=== PATIENT | male | born 1960 | race African-American/Black ===

== ENCOUNTER 2016-08-02 09:37 | Inpatient (IN) | payer OTHER ==
[2016-08-02 11:03] VITALS: BMI 18.4
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
[2016-08-02] MEDS ORDERED: MAGNESIUM CITRATE 300 ML BOTTLE PO PRN (12:15)
[2016-08-02] MEDS ORDERED: MENTHOL/PHENOL 1 EACH UD MM PRN (12:15)
[2016-08-02] MEDS ORDERED: ACETAMINOPHEN 325 MG TABLET (FP) PO PRN (12:15)
[2016-08-02] MEDS ORDERED: chlordiazePOXIDE HCL 25 MG CAPSULE PO PRN (12:15)
[2016-08-02] MEDS ORDERED: hydrOXYzine PAMOATE 25 MG CAPSULE (FP) PO PRN (12:15)
[2016-08-02] MEDS ORDERED: LOPERAMIDE HCL 2 MG CAPSULE PO PRN (12:15)
[2016-08-02] MEDS ORDERED: IBUPROFEN 400 MG TABLET (FP) PO PRN (12:15)
[2016-08-02] MEDS ORDERED: MAGNESIUM HYDROX 2400MG/30ML ORAL SUSPENSION 30 ML CUP PO PRN (12:15)
[2016-08-02] MEDS ORDERED: NICOTINE POLACRILEX 2 MG GUM BC PRN (12:15)
[2016-08-02] MEDS ORDERED: P-EPHED 60MG/TRIPROLIDI 2.5MG TABLET PO PRN (12:15)
[2016-08-02] MEDS ORDERED: diphenhydrAMINE HCL 50 MG CAPSULE PO PRN (12:15)
[2016-08-02] MEDS ORDERED: guaiFENesin/D-METHORPHAN HB 10 ML UNIT-DOSE CUPS PO PRN (12:15)
[2016-08-02] MEDS ORDERED: MAG HYDROX/AL HYDROX/SIMETH 30 ML UNIT-DOSE CUP PO PRN (12:15)
[2016-08-02] MEDS ORDERED: chlordiazePOXIDE HCL 25 MG CAPSULE ONE (16:30)
[2016-08-02 17:05] LABS: URINE APPEARANCE CLOUDY; URINE BILIRUBIN NEGATIVE (NEGATIVE); URINE BLOOD 2+ (NEGATIVE); URINE COLOR YELLOW; URINE GLUCOSE (UA) NEGATIVE (NEGATIVE); URINE KETONE NEGATIVE (NEGATIVE); URINE LEUK ESTERASE 3+ (NEGATIVE); URINE NITRITE POSITIVE (NEGATIVE); URINE PROTEIN 2+ (NEGATIVE); URINE UROBILINOGEN NEGATIVE E.U./dl (0.2-1.0)
[2016-08-02 17:42] LABS: URINE BACTERIA RARE /hpf (NONE SEEN); URINE MUCUS FEW; URINE RBC 10 /hpf (0-3); URINE WBC 182 /hpf (3-5)
[2016-08-02] MEDS ORDERED: CEFPODOXIME PROXETIL 100 MG PO SCH (22:00)
[2016-08-02] MEDS: CEFPODOXIME PROXETIL 100 MG PO SCH (22:48)
[2016-08-02] MEDS: PATIENT'S OWN MEDICATION (NON-FORMULARY) (Methenamine Hippurate 1 GM) PO SCH (22:48)
[2016-08-02] MEDS: THIAMINE HCL 100 MG TABLET (FP) PO SCH (22:48)
[2016-08-02] MEDS: chlordiazePOXIDE HCL 25 MG CAPSULE PO SCH (22:48)
[2016-08-03] MEDS: chlordiazePOXIDE HCL 25 MG CAPSULE PO SCH ×4 (06:01→22:32)
[2016-08-03 09:46] LABS: MCH 32.4 pg (25.7-33.7); MCHC 32.9 g/dl (32.0-35.9); MEAN CELL VOLUME 98.5 fl (80-96); MEAN PLT VOLUME 10.2 fl (7.5-11.1); PLATELET COUNT 262 K/MM3 (134-434); RDW 14.5 % (11.9-15.9); WHITE BLOOD COUNT 5.2 K/mm3 (4.0-10.0)
[2016-08-03 10:19] LABS: ALBUMIN 3.9 g/dl (3.4-5.0); BILIRUBIN,TOTAL 0.5 mg/dL (0.2-1.0); CALCIUM 8.6 mg/dL (8.5-10.1); COCKROFT - GAULT 48.37; CREATININE 1.4 mg/dL (0.7-1.3); TOT PROT 7.4 g/dl (6.4-8.2)
[2016-08-03] MEDS: NICOTINE 7 MG/24 HOURS TOPICAL PATCH TD SCH (10:36)
[2016-08-03] MEDS: PATIENT'S OWN MEDICATION (NON-FORMULARY) (Methenamine Hippurate 1 GM) PO SCH ×2 (10:37→22:33)
[2016-08-03] MEDS: PRENATAL VITAMINS W/ FOLIC ACID TABLET (FP) PO SCH (10:37)
[2016-08-03] MEDS: CEFPODOXIME PROXETIL 100 MG PO SCH ×2 (10:38→22:35)
--- NOTE | 2016-08-03 10:49 | PN ---
[facility] CIWA - CIWA Score Nausea/Vomitin-Mild Nausea/No Vomiting Muscle Tremors: 4-Moderate,w/Arms Extend Anxiety: 3 Agitation: 3 Paroxysmal Sweats: 3 Orientation: 0-Oriented Tacttile Disturbances: 0-None Auditory Disturbances: 0-None Visual Disturbances: 0-None Headache: 0-None Present CIWA-Ar Total Score: 14 S Progress Note (SOAP) Subjective: Anxiety,tremors,sweating,interrupted sleep,restless Objective: 08/03/16 10:47 Vital Signs - 8 hr 08/03/16 08/03/16 08/03/16 03:35 06:30 09:20 Temperature 96.8 F L 96.9 F L Pulse Rate 54 L 60 Respiratory 18 16 18 Rate Blood Pressure 130/84 128/88 Laboratory Last Values WBC 5.2 K/mm3 (4.0-10.0) D 08/03/16 06:00 RBC 3.92 M/mm3 (4.00-5.60) L 08/03/16 06:00 Hgb 12.7 GM/dL (11.7-16.9) 08/03/16 06:00 Hct 38.6 % (35.4-49) 08/03/16 06:00 MCV 98.5 fl (80-96) H 08/03/16 06:00 MCHC 32.9 g/dl (32.0-35.9) 08/03/16 06:00 RDW 14.5 % (11.9-15.9) 08/03/16 06:00 Plt Count 262 K/MM3 (134-434) D 08/03/16 06:00 MPV 10.2 fl (7.5-11.1) 08/03/16 06:00 Sodium 145 mmol/L (136-145) 08/03/16 06:00 Potassium 4.5 mmol/L (3.5-5.1) 08/03/16 06:00 Chloride 108 mmol/L (98-107) H 08/03/16 06:00 Carbon Dioxide 25 mmol/L (21-32) 08/03/16 06:00 Anion Gap 12 (8-16) 08/03/16 06:00 BUN 12 mg/dL (7-18) D 08/03/16 06:00 Creatinine 1.4 mg/dL (0.7-1.3) H 08/03/16 06:00 Creat Clearance w eGFR 52.81 (>60) 08/03/16 06:00 Random Glucose 69 mg/dL (74-106) L D 08/03/16 06:00 Calcium 8.6 mg/dL (8.5-10.1) 08/03/16 06:00 Total Bilirubin 0.5 mg/dL (0.2-1.0) D 08/03/16 06:00 AST 39 U/L (15-37) H D 08/03/16 06:00 ALT 30 U/L (12-78) D 08/03/16 06:00 Alkaline Phosphatase 93 U/L (45-117) D 08/03/16 06:00 Total Protein 7.4 g/dl (6.4-8.2) 08/03/16 06:00 Albumin 3.9 g/dl (3.4-5.0) 08/03/16 06:00 Urine Color Yellow 08/02/16 15:00 Urine Appearance Cloudy 08/02/16 15:00 Urine pH 5.0 (5.0-8.0) 08/02/16 15:00 Ur Specific [place] 1.013 (1.001-1.035) 08/02/16 15:00 Urine Protein 2+ (NEGATIVE) H 08/02/16 15:00 Urine Glucose (UA) Negative (NEGATIVE) 08/02/16 15:00 Urine Ketones Negative (NEGATIVE) 08/02/16 15:00 Urine Blood 2+ (NEGATIVE) H 08/02/16 15:00 Urine Nitrite Positive (NEGATIVE) 08/02/16 15:00 Urine Bilirubin Negative (NEGATIVE) 08/02/16 15:00 Urine Urobilinogen Negative E.U./dl (0.2-1.0) 08/02/16 15:00 Ur Leukocyte Esterase 3+ (NEGATIVE) H D 08/02/16 15:00 Urine RBC 10 /hpf (0-3) 08/02/16 15:00 Urine WBC 182 /hpf (3-5) 08/02/16 15:00 Ur Epithelial Cells Rare /hpf (FEW) 08/02/16 15:00 Urine Bacteria Rare /hpf (NONE SEEN) 08/02/16 15:00 Urine Mucus Few 08/02/16 15:00 labs noted,on vantin for UTI Assessment: 08/03/16 10:47 Withdrawal sx. Plan: Continue detox
--- NOTE | 2016-08-03 11:47 | EKG ---
Test Reason : Blood Pressure : / mmHG Vent. Rate : 062 BPM Atrial Rate : 062 BPM P-R Int : 156 ms QRS Dur : 084 ms QT Int : 444 ms P-R-T Axes : 080 058 086 degrees QTc Int : 450 ms NORMAL SINUS RHYTHM NORMAL ECG NO PREVIOUS ECGS AVAILABLE Confirmed by GEMA ANGELA, ALEX ([id number]) on 08/03/2016 11:47:31 AM Referred By: Confirmed By:ALEX RIBEIRO MD
[2016-08-03] MEDS: THIAMINE HCL 100 MG TABLET (FP) PO SCH (22:32)
[2016-08-04] MEDS: chlordiazePOXIDE HCL 25 MG CAPSULE PO SCH ×3 (05:56→18:02)
[2016-08-04] MEDS: PATIENT'S OWN MEDICATION (NON-FORMULARY) (Methenamine Hippurate 1 GM) PO SCH ×2 (10:34→22:46)
[2016-08-04] MEDS: CEFPODOXIME PROXETIL 100 MG PO SCH ×2 (10:34→22:46)
[2016-08-04] MEDS: PRENATAL VITAMINS W/ FOLIC ACID TABLET (FP) PO SCH (10:34)
[2016-08-04] MEDS: NICOTINE 7 MG/24 HOURS TOPICAL PATCH TD SCH (10:35)
--- NOTE | 2016-08-04 11:50 | PN ---
[facility] CIWA - CIWA Score Nausea/Vomitin-No Nausea/No Vomiting Muscle Tremors: 4-Moderate,w/Arms Extend Anxiety: 4-Mod. Anxious/Guarded Agitation: 4-Moderately Restless Paroxysmal Sweats: 1-Minimal Palms Moist Orientation: 0-Oriented Tacttile Disturbances: 3-Moderate Itch/Numb/Burn Auditory Disturbances: 0-None Visual Disturbances: 0-None Headache: 0-None Present CIWA-Ar Total Score: 16 BHS Progress Note (SOAP) Subjective: ANXIETY,SWEATS,TREMORS,INTERMITTENT SLEEP. Objective: 08/04/16 11:49 Vital Signs Temperature 97.6 F 08/04/16 10:20 Pulse Rate 82 08/04/16 10:20 Respiratory Rate 18 08/04/16 10:20 Blood Pressure 125/92 08/04/16 10:20 O2 Sat by Pulse Oximetry (%) Laboratory Last Values WBC 5.2 K/mm3 (4.0-10.0) D 08/03/16 06:00 RBC 3.92 M/mm3 (4.00-5.60) L 08/03/16 06:00 Hgb 12.7 GM/dL (11.7-16.9) 08/03/16 06:00 Hct 38.6 % (35.4-49) 08/03/16 06:00 MCV 98.5 fl (80-96) H 08/03/16 06:00 MCHC 32.9 g/dl (32.0-35.9) 08/03/16 06:00 RDW 14.5 % (11.9-15.9) 08/03/16 06:00 Plt Count 262 K/MM3 (134-434) D 08/03/16 06:00 MPV 10.2 fl (7.5-11.1) 08/03/16 06:00 Sodium 145 mmol/L (136-145) 08/03/16 06:00 Potassium 4.5 mmol/L (3.5-5.1) 08/03/16 06:00 Chloride 108 mmol/L (98-107) H 08/03/16 06:00 Carbon Dioxide 25 mmol/L (21-32) 08/03/16 06:00 Anion Gap 12 (8-16) 08/03/16 06:00 BUN 12 mg/dL (7-18) D 08/03/16 06:00 Creatinine 1.4 mg/dL (0.7-1.3) H 08/03/16 06:00 Creat Clearance w eGFR 52.81 (>60) 08/03/16 06:00 Random Glucose 69 mg/dL (74-106) L D 08/03/16 06:00 Calcium 8.6 mg/dL (8.5-10.1) 08/03/16 06:00 Total Bilirubin 0.5 mg/dL (0.2-1.0) D 08/03/16 06:00 AST 39 U/L (15-37) H D 08/03/16 06:00 ALT 30 U/L (12-78) D 08/03/16 06:00 Alkaline Phosphatase 93 U/L (45-117) D 08/03/16 06:00 Total Protein 7.4 g/dl (6.4-8.2) 08/03/16 06:00 Albumin 3.9 g/dl (3.4-5.0) 08/03/16 06:00 Urine Color Yellow 08/02/16 15:00 Urine Appearance Cloudy 08/02/16 15:00 Urine pH 5.0 (5.0-8.0) 08/02/16 15:00 Ur Specific [place] 1.013 (1.001-1.035) 08/02/16 15:00 Urine Protein 2+ (NEGATIVE) H 08/02/16 15:00 Urine Glucose (UA) Negative (NEGATIVE) 08/02/16 15:00 Urine Ketones Negative (NEGATIVE) 08/02/16 15:00 Urine Blood 2+ (NEGATIVE) H 08/02/16 15:00 Urine Nitrite Positive (NEGATIVE) 08/02/16 15:00 Urine Bilirubin Negative (NEGATIVE) 08/02/16 15:00 Urine Urobilinogen Negative E.U./dl (0.2-1.0) 08/02/16 15:00 Ur Leukocyte Esterase 3+ (NEGATIVE) H D 08/02/16 15:00 Urine RBC 10 /hpf (0-3) 08/02/16 15:00 Urine WBC 182 /hpf (3-5) 08/02/16 15:00 Ur Epithelial Cells Rare /hpf (FEW) 08/02/16 15:00 Urine Bacteria Rare /hpf (NONE SEEN) 08/02/16 15:00 Urine Mucus Few 08/02/16 15:00 RPR Titer Nonreactive (NONREACTIVE) 08/03/16 06:00 LABS/UA NOTED Assessment: 08/04/16 11:50 WITHDRAWAL SX R/O UTI Plan: CONTINUE DETOX REPEAT UA;U/C TODAY
[2016-08-04] MEDS: chlordiazePOXIDE 5 MG CAPSULE PO SCH (22:45)
[2016-08-04] MEDS: THIAMINE HCL 100 MG TABLET (FP) PO SCH (22:45)
[2016-08-05] MEDS: chlordiazePOXIDE 5 MG CAPSULE PO SCH ×3 (07:12→17:55)
[2016-08-05] MEDS: NICOTINE 7 MG/24 HOURS TOPICAL PATCH TD SCH (10:26)
[2016-08-05] MEDS: CEFPODOXIME PROXETIL 100 MG PO SCH ×2 (10:26→22:44)
[2016-08-05] MEDS: PRENATAL VITAMINS W/ FOLIC ACID TABLET (FP) PO SCH (10:26)
[2016-08-05] MEDS: PATIENT'S OWN MEDICATION (NON-FORMULARY) (Methenamine Hippurate 1 GM) PO SCH ×2 (10:26→22:44)
--- NOTE | 2016-08-05 16:13 | PN ---
S Progress Note (SOAP) Subjective: Pt. refuses to discuss current Detox symptoms. Objective: PT. A & O X 3, OBSERVED AMBULATING ON UNIT. 08/05/16 16:10 Vital Signs Temperature 98.6 F 08/05/16 11:21 Pulse Rate 68 08/05/16 11:21 Respiratory Rate 18 08/05/16 11:21 Blood Pressure 123/74 08/05/16 11:21 O2 Sat by Pulse Oximetry (%) Laboratory Last Values WBC 5.2 K/mm3 (4.0-10.0) D 08/03/16 06:00 RBC 3.92 M/mm3 (4.00-5.60) L 08/03/16 06:00 Hgb 12.7 GM/dL (11.7-16.9) 08/03/16 06:00 Hct 38.6 % (35.4-49) 08/03/16 06:00 MCV 98.5 fl (80-96) H 08/03/16 06:00 MCHC 32.9 g/dl (32.0-35.9) 08/03/16 06:00 RDW 14.5 % (11.9-15.9) 08/03/16 06:00 Plt Count 262 K/MM3 (134-434) D 08/03/16 06:00 MPV 10.2 fl (7.5-11.1) 08/03/16 06:00 Sodium 145 mmol/L (136-145) 08/03/16 06:00 Potassium 4.5 mmol/L (3.5-5.1) 08/03/16 06:00 Chloride 108 mmol/L (98-107) H 08/03/16 06:00 Carbon Dioxide 25 mmol/L (21-32) 08/03/16 06:00 Anion Gap 12 (8-16) 08/03/16 06:00 BUN 12 mg/dL (7-18) D 08/03/16 06:00 Creatinine 1.4 mg/dL (0.7-1.3) H 08/03/16 06:00 Creat Clearance w eGFR 52.81 (>60) 08/03/16 06:00 Random Glucose 69 mg/dL (74-106) L D 08/03/16 06:00 Calcium 8.6 mg/dL (8.5-10.1) 08/03/16 06:00 Total Bilirubin 0.5 mg/dL (0.2-1.0) D 08/03/16 06:00 AST 39 U/L (15-37) H D 08/03/16 06:00 ALT 30 U/L (12-78) D 08/03/16 06:00 Alkaline Phosphatase 93 U/L (45-117) D 08/03/16 06:00 Total Protein 7.4 g/dl (6.4-8.2) 08/03/16 06:00 Albumin 3.9 g/dl (3.4-5.0) 08/03/16 06:00 Urine Color Yellow 08/02/16 15:00 Urine Appearance Cloudy 08/02/16 15:00 Urine pH 5.0 (5.0-8.0) 08/02/16 15:00 Ur Specific [place] 1.013 (1.001-1.035) 08/02/16 15:00 Urine Protein 2+ (NEGATIVE) H 08/02/16 15:00 Urine Glucose (UA) Negative (NEGATIVE) 08/02/16 15:00 Urine Ketones Negative (NEGATIVE) 08/02/16 15:00 Urine Blood 2+ (NEGATIVE) H 08/02/16 15:00 Urine Nitrite Positive (NEGATIVE) 08/02/16 15:00 Urine Bilirubin Negative (NEGATIVE) 08/02/16 15:00 Urine Urobilinogen Negative E.U./dl (0.2-1.0) 08/02/16 15:00 Ur Leukocyte Esterase 3+ (NEGATIVE) H D 08/02/16 15:00 Urine RBC 10 /hpf (0-3) 08/02/16 15:00 Urine WBC 182 /hpf (3-5) 08/02/16 15:00 Ur Epithelial Cells Rare /hpf (FEW) 08/02/16 15:00 Urine Bacteria Rare /hpf (NONE SEEN) 08/02/16 15:00 Urine Mucus Few 08/02/16 15:00 RPR Titer Nonreactive (NONREACTIVE) 08/03/16 06:00 LABS NOTED. URINE CULTURE RESULT FROM 08/03/16 NOTED. PT. ALREADY RECIVING VANTIN. 08/05/16 16:12 08/05/16 16:12 Assessment: 08/05/16 16:12 WITHDRAWAL SYMPTOMS. Plan: CONTINUE DETOX. ADVISED PATIENT TO FOLLOW-UP WITH CLINICAL LAB CLERK / REHAB MEDICAL PROVIDER AFTER DISCHARGE FROM DETOX FOR GENERAL MEDICAL ASSESSMENT AND FOR ABNORMAL ADMISSION LAB VALUES AND FOR UTI FOR WHICH HE IS CURRENTLY BEING TREATED.
[2016-08-05] MEDS: chlordiazePOXIDE HCL 10 MG CAPSULE PO SCH (22:43)
[2016-08-05] MEDS: THIAMINE HCL 100 MG TABLET (FP) PO SCH (22:43)
[2016-08-06] MEDS: chlordiazePOXIDE HCL 10 MG CAPSULE PO SCH ×2 (06:23→10:34)
--- NOTE | 2016-08-06 09:18 | PN ---
BHS Progress Note (SOAP) Subjective: no complaints Objective: 08/06/16 09:16 Vital Signs - 8 hr 08/06/16 08/06/16 03:30 06:13 Temperature 96.6 F L Pulse Rate 74 Respiratory 18 18 Rate Blood Pressure 130/73 Laboratory Tests 08/02/16 08/03/16 08/03/16 15:00 06:00 06:00 WBC 5.2 D RBC 3.92 L Hgb 12.7 Hct 38.6 MCV 98.5 H MCHC 32.9 RDW 14.5 Plt Count 262 D MPV 10.2 Sodium 145 Potassium 4.5 Chloride 108 H Carbon Dioxide 25 Anion Gap 12 BUN 12 D Creatinine 1.4 H Creat Clearance w eGFR 52.81 Random Glucose 69 L D Calcium 8.6 Total Bilirubin 0.5 D AST 39 H D ALT 30 D Alkaline Phosphatase 93 D Total Protein 7.4 Albumin 3.9 Urine Color Yellow Urine Appearance Cloudy Urine pH 5.0 Ur Specific [place] 1.013 Urine Protein 2+ H Urine Glucose (UA) Negative Urine Ketones Negative Urine Blood 2+ H Urine Nitrite Positive Urine Bilirubin Negative Urine Urobilinogen Negative Ur Leukocyte Esterase 3+ H D Urine RBC 10 Urine WBC 182 Ur Epithelial Cells Rare Urine Bacteria Rare Urine Mucus Few RPR Titer 08/03/16 06:00 WBC RBC Hgb Hct MCV MCHC RDW Plt Count MPV Sodium Potassium Chloride Carbon Dioxide Anion Gap BUN Creatinine Creat Clearance w eGFR Random Glucose Calcium Total Bilirubin AST ALT Alkaline Phosphatase Total Protein Albumin Urine Color Urine Appearance Urine pH Ur Specific [place] Urine Protein Urine Glucose (UA) Urine Ketones Urine Blood Urine Nitrite Urine Bilirubin Urine Urobilinogen Ur Leukocyte Esterase Urine RBC Urine WBC Ur Epithelial Cells Urine Bacteria Urine Mucus RPR Titer Nonreactive abnormal u/u, elevated lfts and creatinine Assessment: 08/06/16 09:17 completed detox, medically stable, results urine c and s pending Plan: d/c today, repeat bloodwork, f/u PCP on discharge for medical care complete course of antibiotics for UTI
--- NOTE | 2016-08-06 09:20 | DS ---
[facility] Detox Discharge Summary Admission Date: 08/02/16 Discharge Date: 08/06/16 - History Present History: Alcohol Dependence, Cocaine Dependence Pertinent Past History: systostomy, anxiety, depression, insomnia - Physical Exam Results Vital Signs: Vital Signs Temperature 96.6 F L 08/06/16 06:13 Pulse Rate 74 08/06/16 06:13 Respiratory Rate 18 08/06/16 06:13 Blood Pressure 130/73 08/06/16 06:13 O2 Sat by Pulse Oximetry (%) Pertinent Admission Physical Exam Findings: withdrawal sx, UTI - Treatment Hospital Course: Detox Protocol Followed, Detoxed Safely, Responded well, Discharged Condition Good, Rehab Referral Accepted - Medication Discharge Medications: Ambulatory Orders Cefpodoxime Proxetil [Vantin -] 100 mg PO BID 08/02/16 Methenamine Hippurate [Hiprex [Nf] -] 1 gm PO BID 08/02/16 - Diagnosis (1) UTI (lower urinary tract infection) Current Visit: Yes Status: Acute (2) Alcohol dependence Current Visit: Yes Status: Chronic Qualifiers: Substance use status: in withdrawal Complication of substance-induced condition: uncomplicated Qualified Code(s): F10.230 - Alcohol dependence with withdrawal, uncomplicated (3) Cocaine dependence Current Visit: Yes Status: Chronic Qualifiers: Substance use status: uncomplicated Qualified Code(s): F14.20 - Cocaine dependence, uncomplicated (4) 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
[2016-08-06 10:30] VITALS: BP 120/77; PULSE 72; TEMP 97
[2016-08-06] MEDS: PRENATAL VITAMINS W/ FOLIC ACID TABLET (FP) PO SCH (10:34)
[2016-08-06] MEDS: CEFPODOXIME PROXETIL 100 MG PO SCH (10:34)
[2016-08-06] MEDS: PATIENT'S OWN MEDICATION (NON-FORMULARY) (Methenamine Hippurate 1 GM) PO SCH (10:34)
[2016-08-06] MEDS: NICOTINE 7 MG/24 HOURS TOPICAL PATCH TD SCH (10:34)
== END 2016-08-06 12:23 | disposition other institution (70) | DRG 774 ==
LOC: YASAS 09:37 → Y3N 13:05
PROVIDERS: ADMIT Internal Medicine; ATTEND Internal Medicine
PROC: HZ2ZZZZ Detoxification Services for Substance Abuse Treatment (ICD-10-PCS; principal; 2016-08-02)
DX: F10.230 Alcohol dependence with withdrawal, uncomplicated (principal); F14.20 Cocaine dependence, uncomplicated; F17.210 Nicotine dependence, cigarettes, uncomplicated; N39.0 Urinary tract infection, site not specified; R79.89 Other specified abnormal findings of blood chemistry; R94.5 Abnormal results of liver function studies; Z87.898 Personal history of other specified conditions; Z93.59 Other cystostomy status
CPT/HCPCS: 36415; 80053; 81003; 81015; 85027; 86593; 87086; 87186; 93005; 93010

== ENCOUNTER 2016-08-06 12:28 | Inpatient (IN) | payer OTHER ==
[2016-08-06] MEDS ORDERED: P-EPHED 60MG/TRIPROLIDI 2.5MG TABLET PO PRN (15:29)
[2016-08-06] MEDS ORDERED: LOPERAMIDE HCL 2 MG CAPSULE PO PRN (15:29)
[2016-08-06] MEDS ORDERED: MAGNESIUM CITRATE 300 ML BOTTLE PO PRN (15:29)
[2016-08-06] MEDS ORDERED: MENTHOL/PHENOL 1 EACH UD MM PRN (15:29)
[2016-08-06] MEDS ORDERED: diphenhydrAMINE HCL 50 MG CAPSULE PO PRN (15:29)
[2016-08-06] MEDS ORDERED: MAG HYDROX/AL HYDROX/SIMETH 30 ML UNIT-DOSE CUP PO PRN (15:29)
[2016-08-06] MEDS ORDERED: ACETAMINOPHEN 325 MG TABLET (FP) PO PRN (15:29)
[2016-08-06] MEDS ORDERED: hydrOXYzine PAMOATE 25 MG CAPSULE (FP) PO PRN (15:29)
[2016-08-06] MEDS ORDERED: guaiFENesin/D-METHORPHAN HB 10 ML UNIT-DOSE CUPS PO PRN (15:29)
[2016-08-06] MEDS ORDERED: MAGNESIUM HYDROX 2400MG/30ML ORAL SUSPENSION 30 ML CUP PO PRN (15:29)
--- NOTE | 2016-08-06 15:33 | HP ---
NATHAN ANGELA Rehab Assess/Revision - Admission History Admitted to Rehab from: [facility] Date of Admission to Rehab: 08/07/16 - Vital signs Vital Signs: Vital Signs Period Temp Pulse Resp BP Sys/Weinstein Pulse Ox Last 24 Hr 97.6 F 70 16 134/86 - Findings Detox History & Physical reviewed: Yes Concur with findings: Yes Comments/Additional Findings: for rehab as protocol
[2016-08-06] MEDS: CEFPODOXIME PROXETIL PO SCH (21:56)
[2016-08-06] MEDS: PATIENT'S OWN MEDICATION (NON-FORMULARY) (Methenamine Hippurate 1 GM) PO SCH (21:56)
[2016-08-06] MEDS: THIAMINE HCL 100 MG TABLET (FP) PO SCH (21:56)
[2016-08-07] MEDS: PATIENT'S OWN MEDICATION (NON-FORMULARY) (Methenamine Hippurate 1 GM) PO SCH ×2 (10:48→23:25)
[2016-08-07] MEDS: PRENATAL VITAMINS W/ FOLIC ACID TABLET (FP) PO SCH (10:48)
[2016-08-07] MEDS: CEFPODOXIME PROXETIL PO SCH (13:03)
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
[2016-08-07] MEDS: NICOTINE 7 MG/24 HOURS TOPICAL PATCH TD SCH (16:15)
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
[2016-08-07] MEDS ORDERED: ARTIFICIAL TEARS (POLYVINYL ALCOHOL 1.4%) OPTH DROPS OU PRN (18:06)
[2016-08-07] MEDS: THIAMINE HCL 100 MG TABLET (FP) PO SCH (23:25)
[2016-08-08] MEDS ORDERED: NICOTINE 7 MG/24 HOURS TOPICAL PATCH TD SCH (10:00)
[2016-08-08] MEDS: PATIENT'S OWN MEDICATION (NON-FORMULARY) (Methenamine Hippurate 1 GM) PO SCH ×2 (10:03→21:30)
[2016-08-08] MEDS: PRENATAL VITAMINS W/ FOLIC ACID TABLET (FP) PO SCH (10:03)
[2016-08-08] MEDS: NICOTINE 7 MG/24 HOURS TOPICAL PATCH TD SCH (10:03)
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
[2016-08-08] MEDS: THIAMINE HCL 100 MG TABLET (FP) PO SCH (21:30)
[2016-08-08] MEDS ORDERED: ERYTHROMYCIN 0.5% OS SCH (22:00)
[2016-08-08] MEDS ORDERED: OFLOXACIN 0.3% OS SCH (22:00)
[2016-08-08] MEDS ORDERED: SYSTANE EYE OS SCH (22:00)
[2016-08-08] MEDS ORDERED: EYE OS SCH (22:00)
[2016-08-08] MEDS: OFLOXACIN 0.3% OPHTHALMIC SOLUTION 5 ML BOTTLE OS SCH (23:24)
[2016-08-09] MEDS: PATIENT'S OWN MEDICATION (NON-FORMULARY) (Methenamine Hippurate 1 GM) PO SCH ×2 (10:11→21:47)
[2016-08-09] MEDS: PRENATAL VITAMINS W/ FOLIC ACID TABLET (FP) PO SCH (10:11)
[2016-08-09] MEDS: NICOTINE 7 MG/24 HOURS TOPICAL PATCH TD SCH (10:12)
[2016-08-09] MEDS: OFLOXACIN 0.3% OPHTHALMIC SOLUTION 5 ML BOTTLE OS SCH ×4 (10:37→21:47)
[2016-08-09] MEDS: ERYTHROMYCIN 0.5% OPHTHALMIC OINTMENT 3.5 GM TUBE OS SCH (21:47)
[2016-08-09] MEDS: THIAMINE HCL 100 MG TABLET (FP) PO SCH (21:47)
[2016-08-09] MEDS: [UNRECOGNIZED DRUG - OTHER] OS SCH (21:48)
[2016-08-10] MEDS: IBUPROFEN 400 MG TABLET (FP) PO PRN ×2 (01:24→21:35)
[2016-08-10] MEDS: OFLOXACIN 0.3% OPHTHALMIC SOLUTION 5 ML BOTTLE OS SCH ×4 (09:52→21:33)
[2016-08-10] MEDS: PATIENT'S OWN MEDICATION (NON-FORMULARY) (Methenamine Hippurate 1 GM) PO SCH ×2 (09:52→21:34)
[2016-08-10] MEDS: PRENATAL VITAMINS W/ FOLIC ACID TABLET (FP) PO SCH (09:52)
[2016-08-10] MEDS: NICOTINE 7 MG/24 HOURS TOPICAL PATCH TD SCH (09:58)
[2016-08-10] MEDS: [UNRECOGNIZED DRUG - OTHER] OS SCH (21:33)
[2016-08-10] MEDS: THIAMINE HCL 100 MG TABLET (FP) PO SCH (21:34)
[2016-08-10] MEDS: ERYTHROMYCIN 0.5% OPHTHALMIC OINTMENT 3.5 GM TUBE OS SCH (21:34)
[2016-08-11] MEDS: PATIENT'S OWN MEDICATION (NON-FORMULARY) (Methenamine Hippurate 1 GM) PO SCH ×2 (09:50→21:40)
[2016-08-11] MEDS: PRENATAL VITAMINS W/ FOLIC ACID TABLET (FP) PO SCH (09:50)
[2016-08-11] MEDS: NICOTINE 7 MG/24 HOURS TOPICAL PATCH TD SCH (09:51)
[2016-08-11] MEDS: OFLOXACIN 0.3% OPHTHALMIC SOLUTION 5 ML BOTTLE OS SCH ×4 (09:51→21:39)
[2016-08-11] MEDS: ERYTHROMYCIN 0.5% OPHTHALMIC OINTMENT 3.5 GM TUBE OS SCH (21:40)
[2016-08-11] MEDS: [UNRECOGNIZED DRUG - OTHER] OS SCH (21:40)
[2016-08-11] MEDS: THIAMINE HCL 100 MG TABLET (FP) PO SCH (21:41)
[2016-08-11] MEDS: IBUPROFEN 400 MG TABLET (FP) PO PRN (21:41)
[2016-08-12] MEDS: PATIENT'S OWN MEDICATION (NON-FORMULARY) (Methenamine Hippurate 1 GM) PO SCH ×2 (09:50→21:54)
[2016-08-12] MEDS: NICOTINE 7 MG/24 HOURS TOPICAL PATCH TD SCH (09:50)
[2016-08-12] MEDS: PRENATAL VITAMINS W/ FOLIC ACID TABLET (FP) PO SCH (09:50)
[2016-08-12] MEDS: OFLOXACIN 0.3% OPHTHALMIC SOLUTION 5 ML BOTTLE OS SCH ×4 (09:51→21:53)
[2016-08-12] MEDS: THIAMINE HCL 100 MG TABLET (FP) PO SCH (21:52)
[2016-08-12] MEDS: [UNRECOGNIZED DRUG - OTHER] OS SCH (21:52)
[2016-08-12] MEDS: ERYTHROMYCIN 0.5% OPHTHALMIC OINTMENT 3.5 GM TUBE OS SCH (21:54)
[2016-08-13] MEDS: PATIENT'S OWN MEDICATION (NON-FORMULARY) (Methenamine Hippurate 1 GM) PO SCH ×2 (09:56→21:57)
[2016-08-13] MEDS: PRENATAL VITAMINS W/ FOLIC ACID TABLET (FP) PO SCH (09:56)
[2016-08-13] MEDS: NICOTINE 7 MG/24 HOURS TOPICAL PATCH TD SCH (09:57)
[2016-08-13] MEDS: OFLOXACIN 0.3% OPHTHALMIC SOLUTION 5 ML BOTTLE OS SCH ×4 (09:57→21:57)
[2016-08-13] MEDS: THIAMINE HCL 100 MG TABLET (FP) PO SCH (21:55)
[2016-08-13] MEDS: [UNRECOGNIZED DRUG - OTHER] OS SCH (21:55)
[2016-08-13] MEDS: ERYTHROMYCIN 0.5% OPHTHALMIC OINTMENT 3.5 GM TUBE OS SCH (21:57)
[2016-08-14] MEDS: PATIENT'S OWN MEDICATION (NON-FORMULARY) (Methenamine Hippurate 1 GM) PO SCH ×2 (10:29→21:58)
[2016-08-14] MEDS: NICOTINE 7 MG/24 HOURS TOPICAL PATCH TD SCH (10:29)
[2016-08-14] MEDS: PRENATAL VITAMINS W/ FOLIC ACID TABLET (FP) PO SCH (10:29)
[2016-08-14] MEDS: OFLOXACIN 0.3% OPHTHALMIC SOLUTION 5 ML BOTTLE OS SCH ×4 (10:30→22:00)
[2016-08-14] MEDS: [UNRECOGNIZED DRUG - OTHER] OS SCH (21:58)
[2016-08-14] MEDS: THIAMINE HCL 100 MG TABLET (FP) PO SCH (22:01)
[2016-08-14] MEDS: ERYTHROMYCIN 0.5% OPHTHALMIC OINTMENT 3.5 GM TUBE OS SCH (22:01)
[2016-08-15] MEDS: PRENATAL VITAMINS W/ FOLIC ACID TABLET (FP) PO SCH (10:15)
[2016-08-15] MEDS: PATIENT'S OWN MEDICATION (NON-FORMULARY) (Methenamine Hippurate 1 GM) PO SCH ×2 (10:15→21:58)
[2016-08-15] MEDS: OFLOXACIN 0.3% OPHTHALMIC SOLUTION 5 ML BOTTLE OS SCH ×4 (10:15→21:56)
[2016-08-15] MEDS: NICOTINE 7 MG/24 HOURS TOPICAL PATCH TD SCH (10:16)
[2016-08-15] MEDS: ERYTHROMYCIN 0.5% OPHTHALMIC OINTMENT 3.5 GM TUBE OS SCH (21:58)
[2016-08-15] MEDS: THIAMINE HCL 100 MG TABLET (FP) PO SCH (21:58)
[2016-08-15] MEDS: [UNRECOGNIZED DRUG - OTHER] OS SCH (21:58)
[2016-08-16] MEDS: PATIENT'S OWN MEDICATION (NON-FORMULARY) (Methenamine Hippurate 1 GM) PO SCH ×2 (09:50→21:48)
[2016-08-16] MEDS: OFLOXACIN 0.3% OPHTHALMIC SOLUTION 5 ML BOTTLE OS SCH ×4 (09:51→21:52)
[2016-08-16] MEDS: NICOTINE 7 MG/24 HOURS TOPICAL PATCH TD SCH (09:51)
[2016-08-16] MEDS: PRENATAL VITAMINS W/ FOLIC ACID TABLET (FP) PO SCH (09:51)
[2016-08-16] MEDS: THIAMINE HCL 100 MG TABLET (FP) PO SCH (21:48)
[2016-08-16] MEDS: [UNRECOGNIZED DRUG - OTHER] OS SCH (21:51)
[2016-08-16] MEDS: ERYTHROMYCIN 0.5% OPHTHALMIC OINTMENT 3.5 GM TUBE OS SCH (22:09)
[2016-08-17] MEDS: NICOTINE 7 MG/24 HOURS TOPICAL PATCH TD SCH (10:44)
[2016-08-17] MEDS: PATIENT'S OWN MEDICATION (NON-FORMULARY) (Methenamine Hippurate 1 GM) PO SCH ×2 (10:44→21:47)
[2016-08-17] MEDS: OFLOXACIN 0.3% OPHTHALMIC SOLUTION 5 ML BOTTLE OS SCH ×4 (10:44→21:46)
[2016-08-17] MEDS: PRENATAL VITAMINS W/ FOLIC ACID TABLET (FP) PO SCH (10:44)
[2016-08-17] MEDS: [UNRECOGNIZED DRUG - OTHER] OS SCH (21:46)
[2016-08-17] MEDS: THIAMINE HCL 100 MG TABLET (FP) PO SCH (21:46)
[2016-08-17] MEDS: ERYTHROMYCIN 0.5% OPHTHALMIC OINTMENT 3.5 GM TUBE OS SCH (21:47)
[2016-08-18] MEDS: PRENATAL VITAMINS W/ FOLIC ACID TABLET (FP) PO SCH (10:28)
[2016-08-18] MEDS: PATIENT'S OWN MEDICATION (NON-FORMULARY) (Methenamine Hippurate 1 GM) PO SCH ×2 (10:28→21:42)
[2016-08-18] MEDS: OFLOXACIN 0.3% OPHTHALMIC SOLUTION 5 ML BOTTLE OS SCH ×4 (10:29→21:41)
[2016-08-18] MEDS: NICOTINE 7 MG/24 HOURS TOPICAL PATCH TD SCH (10:29)
[2016-08-18] MEDS: [UNRECOGNIZED DRUG - OTHER] OS SCH (21:42)
[2016-08-18] MEDS: THIAMINE HCL 100 MG TABLET (FP) PO SCH (21:42)
[2016-08-18] MEDS: ERYTHROMYCIN 0.5% OPHTHALMIC OINTMENT 3.5 GM TUBE OS SCH (21:44)
[2016-08-19] MEDS: OFLOXACIN 0.3% OPHTHALMIC SOLUTION 5 ML BOTTLE OS SCH ×4 (10:57→21:36)
[2016-08-19] MEDS: PRENATAL VITAMINS W/ FOLIC ACID TABLET (FP) PO SCH (10:57)
[2016-08-19] MEDS: PATIENT'S OWN MEDICATION (NON-FORMULARY) (Methenamine Hippurate 1 GM) PO SCH ×2 (10:58→21:36)
[2016-08-19] MEDS: NICOTINE 7 MG/24 HOURS TOPICAL PATCH TD SCH (10:58)
[2016-08-19] MEDS: [UNRECOGNIZED DRUG - OTHER] OS SCH (21:36)
[2016-08-19] MEDS: ERYTHROMYCIN 0.5% OPHTHALMIC OINTMENT 3.5 GM TUBE OS SCH (21:37)
[2016-08-19] MEDS: THIAMINE HCL 100 MG TABLET (FP) PO SCH (21:37)
[2016-08-20] MEDS: PRENATAL VITAMINS W/ FOLIC ACID TABLET (FP) PO SCH (10:37)
[2016-08-20] MEDS: OFLOXACIN 0.3% OPHTHALMIC SOLUTION 5 ML BOTTLE OS SCH ×4 (10:38→21:39)
[2016-08-20] MEDS: NICOTINE 7 MG/24 HOURS TOPICAL PATCH TD SCH (10:38)
[2016-08-20] MEDS: PATIENT'S OWN MEDICATION (NON-FORMULARY) (Methenamine Hippurate 1 GM) PO SCH ×2 (10:38→21:38)
[2016-08-20] MEDS: ERYTHROMYCIN 0.5% OPHTHALMIC OINTMENT 3.5 GM TUBE OS SCH (21:38)
[2016-08-20] MEDS: [UNRECOGNIZED DRUG - OTHER] OS SCH (21:38)
[2016-08-20] MEDS: THIAMINE HCL 100 MG TABLET (FP) PO SCH (21:39)
[2016-08-21 06:52] VITALS: BP 136/88; PULSE 82; TEMP 98.2
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
[2016-08-21] MEDS: PATIENT'S OWN MEDICATION (NON-FORMULARY) (Methenamine Hippurate 1 GM) PO SCH (09:59)
[2016-08-21] MEDS: OFLOXACIN 0.3% OPHTHALMIC SOLUTION 5 ML BOTTLE OS SCH (09:59)
[2016-08-21] MEDS: PRENATAL VITAMINS W/ FOLIC ACID TABLET (FP) PO SCH (09:59)
[2016-08-21] MEDS: NICOTINE 7 MG/24 HOURS TOPICAL PATCH TD SCH (09:59)
== END 2016-08-21 10:43 | disposition home or self-care (01) | DRG 772 ==
LOC: YASAS 12:28 → Y5N 12:30 → UNDODISIN 08-10 14:30
PROVIDERS: ADMIT Psychiatry & Neurology Psychiatry; ATTEND Psychiatry & Neurology Psychiatry
PROC: HZ42ZZZ Group Counseling for Substance Abuse Treatment, Cognitive-Behavioral (ICD-10-PCS; principal; 2016-08-21)
DX: F10.230 Alcohol dependence with withdrawal, uncomplicated (principal); F14.20 Cocaine dependence, uncomplicated; F17.213 Nicotine dependence, cigarettes, with withdrawal; N39.0 Urinary tract infection, site not specified; Z93.59 Other cystostomy status

== ENCOUNTER 2016-08-08 13:42 | Emergency (ER) | payer OTHER ==
[2016-08-08 13:56] VITALS: BP 122/86; PULSE 87; TEMP 98.3; BMI 19.2
[2016-08-08] MEDS ORDERED: IBUPROFEN 400 MG TABLET (FP) PO ONE (14:49)
[2016-08-08] MEDS ORDERED: ERYTHROMYCIN 0.5% OPHTHALMIC OINTMENT 3.5 GM TUBE ONE (14:49)
--- NOTE | 2016-08-08 15:00 | PDOC ---
History of Present Illness - General Chief Complaint: Eye Problem Stated Complaint: EYE INFECTION Time Seen by Provider: 08/08/16 14:51 History Source: Patient Exam Limitations: No Limitations - History of Present Illness Initial Comments: 08/08/16 14:55 Care, to be evaluated for left eye injury. was using a knife 2 days ago when he slipped and impaled/scratched his left eye with the tip of that knife. Patient states was painful at the time but did not cause any visual changes and there was no drainage or bleeding therefore not seek attention. Since that time , in full, and noted some yellow drainage this morning when waking up. Vision is unchanged, but has photophobia 08/08/16 15:00 Timing/Duration: other (2 days ) Past History - Travel Traveled outside of the country in the last 30 days: No Close contact w/someone who was outside of country & ill: No - Past Medical History Allergies/Adverse Reactions: Allergies Allergy/AdvReac Type Severity Reaction Status Date / Time No Known Allergies Allergy Verified 08/02/16 11:46 Home Medications: Ambulatory Orders Cefpodoxime Proxetil [Vantin -] 100 mg PO BID 08/02/16 Methenamine Hippurate [Hiprex [Nf] -] 1 gm PO BID 08/02/16 Anemia: No Asthma: No Cancer: No Cardiac Disorders: No CVA: No COPD: No CHF: No Dementia: No Diabetes: No GI Disorders: No Disorders: Yes (Suprapubic Cystostomy) HTN: No Hypercholesterolemia: No Kidney Stones: No Liver Disease: No Suicide Attempt (Hx): No Seizures: No Thyroid Disease: No - Surgical History Abdominal Surgery: No Appendectomy: No Cardiac Surgery: No Cholecystectomy: No Lung Surgery: No Neurologic Surgery: No Orthopedic Surgery: No - Reproductive History Testicular Surgery: No - Psycho/Social/Smoking Cessation Hx Anxiety: No Suicidal Ideation: No Smoking History: Never smoked Have you smoked in the past 12 months: No Number of Cigarettes Smoked Daily: 3 Cigars Per Day: 0 Information on smoking cessation initiated: No 'Breaking Loose' booklet given: 08/02/16 Hx Alcohol Use: Yes Drug/Substance Use Hx: Yes Substance Use Type: Cocaine Hx Substance Use Treatment: Yes Review of Systems - Review of Systems Able to Perform ROS?: Yes Is the patient limited Danish proficient: Yes Constitutional: Yes: Symptoms Reported, See HPI, Malaise. No: Fever, Loss of Appetite HEENTM: Yes: Symptoms Reported, See HPI, Eye Pain, Tearing, Cataracts, Other. No: Recent change in vision, Double Vision Respiratory: No: Symptoms reported Musculoskeletal: No: Symptoms Reported All Other Systems: Reviewed and Negative *Physical Exam - Vital Signs Last Vital Signs Temp Pulse Resp BP Pulse Ox 98.3 F 87 18 122/86 100 08/08/16 13:42 08/08/16 13:42 08/08/16 13:42 08/08/16 13:42 08/08/16 13:42 - Physical Exam General Appearance: Yes: Nourished, Appropriately Dressed, Apparent Distress, Mild Distress HEENT: positive: EOMI, Normal ENT Inspection, TMs Normal, Pharynx Normal. negative: SHAY (bilateral cataracts/ Left globe large/ with tearing and mild redness to conjucnctiva. ) Neck: positive: Supple. negative: Tender, Lymphadenopathy (R), Lymphadenopathy (L) Respiratory/Chest: positive: Lungs Clear, Normal Breath Sounds Gastrointestinal/Abdominal: positive: Soft. negative: Tender Extremity: positive: Normal Capillary Refill Integumentary: positive: Normal Color, Dry, Warm Neurologic: positive: skin specialist II-XII NML intact, Fully Oriented, Alert, Normal Mood/ Affect, Normal Response, Motor Strength 5/5 Medical Decision Making - Medical Decision Making 08/08/16 15:10 Lamp exam reveals a 0.5 cm verticle corneal injury at 6:00 below pupil. There is no hyphema, no drainage from the eye, no foreign bodies noted. Pupil is reactive and equal 2 right side. Vision is 20/80 which is his normal in the affected eye. 08/08/16 15:[address] Cuello office, who agreed will see patient now. Patient discharged with Motrin 400 mg by mouth and will go straight to their office now. 08/08/16 15:11 *DC/Admit/Observation/Transfer Diagnosis at time of Disposition: Corneal abrasion Qualifiers: Encounter type: initial encounter Laterality: left Qualified Code(s): S05.02XA - Injury of conjunctiva and corneal abrasion without foreign body, left eye, initial encounter - Discharge Dispostion Disposition: HOME Condition at time of disposition: Stable Admit: No - Referrals Referrals: Emmanuel Patel [Staff Physician] - - Patient Instructions Printed Discharge Instructions: DI for Corneal Abrasion Additional Instructions: Rest, avoid rubbing eyes Wash hands frequently as this is very contagious Wash hands, use eye drops as directed, wash hands after use Do not share eyedrops with other person to may become infected as this will infect them Avoid contact with others until redness and discharge is gone from eyes. Followup with ophthalmology or private physician as needed May use Ibuprofen 2-200mg tabs every 6 hours for pain Go to Dr Patel's office now for evaluation.
[2016-08-08] MEDS ORDERED: OFLOXACIN 0.3% OPHTHALMIC SOLUTION 5 ML BOTTLE OD SCH (22:00)
== END 2016-08-08 15:33 | disposition home or self-care (01) ==
LOC: JERFT 13:42
DX: S05.02XA Injury of conjunctiva and corneal abrasion without foreign body, left eye, initial encounter (principal); W22.8XXA Striking against or struck by other objects, initial encounter; Y93.89 Activity, other specified; Y92.9 Unspecified place or not applicable; Z72.0 Tobacco use
CPT/HCPCS: 99281-25

== ENCOUNTER 2017-01-20 09:22 | Inpatient (IN) | payer OTHER ==
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
[2017-01-20 09:57] VITALS: BMI 18.6
[2017-01-20] MEDS ORDERED: guaiFENesin/D-METHORPHAN HB 10 ML UNIT-DOSE CUPS PO PRN (10:29)
[2017-01-20] MEDS ORDERED: diphenhydrAMINE HCL 50 MG CAPSULE PO PRN (10:29)
[2017-01-20] MEDS ORDERED: MAGNESIUM CITRATE 300 ML BOTTLE PO PRN (10:29)
[2017-01-20] MEDS ORDERED: IBUPROFEN 400 MG TABLET (FP) PO PRN (10:29)
[2017-01-20] MEDS ORDERED: hydrOXYzine PAMOATE 50 MG CAPSULE (FP) PO PRN (10:29)
[2017-01-20] MEDS ORDERED: MAG HYDROX/AL HYDROX/SIMETH 30 ML UNIT-DOSE CUP PO PRN (10:29)
[2017-01-20] MEDS ORDERED: P-EPHED 60MG/TRIPROLIDI 2.5MG TABLET PO PRN (10:29)
[2017-01-20] MEDS ORDERED: MAGNESIUM HYDROX 2400MG/30ML ORAL SUSPENSION 30 ML CUP PO PRN (10:29)
[2017-01-20] MEDS ORDERED: ACETAMINOPHEN 325 MG TABLET (FP) PO PRN (10:29)
[2017-01-20] MEDS ORDERED: LOPERAMIDE HCL 2 MG CAPSULE PO PRN (10:29)
[2017-01-20] MEDS ORDERED: MENTHOL/PHENOL 1 EACH UD MM PRN (10:29)
[2017-01-20] MEDS ORDERED: chlordiazePOXIDE HCL 25 MG CAPSULE PO PRN (10:29)
[2017-01-20] MEDS ORDERED: chlordiazePOXIDE HCL 25 MG CAPSULE PO ONE (12:30)
[2017-01-20] MEDS: NICOTINE POLACRILEX 4 MG GUM BUC PRN ×2 (14:28→22:49)
[2017-01-20] MEDS: chlordiazePOXIDE HCL 25 MG CAPSULE PO SCH ×2 (17:55→22:48)
[2017-01-20] MEDS: THIAMINE HCL 100 MG TABLET (FP) PO SCH (22:48)
[2017-01-21] MEDS: chlordiazePOXIDE HCL 25 MG CAPSULE PO SCH ×4 (05:55→23:28)
[2017-01-21 07:33] LABS: URINE APPEARANCE CLOUDY; URINE BILIRUBIN NEGATIVE (NEGATIVE); URINE BLOOD 1+ (NEGATIVE); URINE COLOR YELLOW; URINE GLUCOSE (UA) NEGATIVE (NEGATIVE); URINE KETONE NEGATIVE (NEGATIVE); URINE NITRITE NEGATIVE (NEGATIVE); URINE UROBILINOGEN NEGATIVE mg/dL (0.2-1.0)
[2017-01-21 07:34] LABS: URINE LEUK ESTERASE 3+ (NEGATIVE); URINE PROTEIN 1+ (NEGATIVE)
[2017-01-21 07:41] LABS: URINE BACTERIA RARE /hpf (NONE SEEN); URINE MUCUS RARE; URINE RBC 1 /hpf (0-3); URINE WBC 17 /hpf (3-5)
[2017-01-21 10:09] LABS: MCH 32.4 pg (25.7-33.7); MCHC 33.4 g/dl (32.0-35.9); MEAN CELL VOLUME 97.1 fl (80-96); MEAN PLT VOLUME 8.7 fl (7.5-11.1); PLATELET COUNT 199 K/MM3 (134-434); RDW 14.4 % (11.9-15.9); WHITE BLOOD COUNT 4.8 K/mm3 (4.0-10.0)
[2017-01-21 10:38] LABS: ALBUMIN 3.2 g/dl (3.4-5.0); ALK PHOS 75 U/L (45-117); ANION GAP 5 (8-16); BILIRUBIN,TOTAL 0.8 mg/dL (0.2-1.0); CALCIUM 8.6 mg/dL (8.5-10.1); CO2 28 mmol/L (21-32); CREATININE 1.2 mg/dL (0.7-1.3); GLUCOSE,RANDOM 89 mg/dL (74-106); SGOT/AST 19 U/L (15-37); SGPT/ALT 24 U/L (12-78); TOT PROT 6.3 g/dl (6.4-8.2)
[2017-01-21] MEDS: NICOTINE POLACRILEX 4 MG GUM BUC PRN ×2 (11:10→17:44)
[2017-01-21] MEDS: PRENATAL VITAMINS W/ FOLIC ACID TABLET (FP) PO SCH (11:10)
[2017-01-21 11:26] LABS: HIV 1 & 2 AB NEGATIVE; HIV 1 AGp24 NEGATIVE
--- NOTE | 2017-01-21 12:33 | PN ---
[facility] CIWA - CIWA Score Nausea/Vomitin Muscle Tremors: 3 Anxiety: 3 Agitation: 3 Paroxysmal Sweats: 1-Minimal Palms Moist Orientation: 0-Oriented Tacttile Disturbances: 1-Very Mild Itch/Numbness Auditory Disturbances: 1-Very Mild Visual Disturbances: 0-None Headache: 2-Mild CIWA-Ar Total Score: 17 BHS Progress Note (SOAP) Subjective: ALERT,IRRITABLE,ANXIOUS,INTERRUPTED SLEEP,TREMOR Objective: 01/21/17 12:31 Vital Signs Temperature 97.2 F L 01/21/17 11:34 Pulse Rate 64 01/21/17 11:34 Respiratory Rate 16 01/21/17 11:34 Blood Pressure 109/77 01/21/17 11:34 O2 Sat by Pulse Oximetry (%) EKG SINUS BRADYCARDIA 51/MIN NO CHEST PAIN,NO SOB Laboratory Last Values WBC 4.8 K/mm3 (4.0-10.0) 01/21/17 08:00 RBC 3.96 M/mm3 (4.00-5.60) L 01/21/17 08:00 Hgb 12.8 GM/dL (11.7-16.9) 01/21/17 08:00 Hct 38.5 % (35.4-49) 01/21/17 08:00 MCV 97.1 fl (80-96) H 01/21/17 08:00 MCH 32.4 pg (25.7-33.7) 01/21/17 08:00 MCHC 33.4 g/dl (32.0-35.9) 01/21/17 08:00 RDW 14.4 % (11.9-15.9) 01/21/17 08:00 Plt Count 199 K/MM3 (134-434) D 01/21/17 08:00 MPV 8.7 fl (7.5-11.1) D 01/21/17 08:00 Sodium 142 mmol/L (136-145) 01/21/17 08:00 Potassium 4.0 mmol/L (3.5-5.1) 01/21/17 08:00 Chloride 109 mmol/L (98-107) H 01/21/17 08:00 Carbon Dioxide 28 mmol/L (21-32) 01/21/17 08:00 Anion Gap 5 (8-16) L 01/21/17 08:00 BUN 15 mg/dL (7-18) D 01/21/17 08:00 Creatinine 1.2 mg/dL (0.7-1.3) 01/21/17 08:00 Creat Clearance w eGFR > 60 (>60) 01/21/17 08:00 Random Glucose 89 mg/dL (74-106) D 01/21/17 08:00 Calcium 8.6 mg/dL (8.5-10.1) 01/21/17 08:00 Total Bilirubin 0.8 mg/dL (0.2-1.0) D 01/21/17 08:00 AST 19 U/L (15-37) D 01/21/17 08:00 ALT 24 U/L (12-78) 01/21/17 08:00 Alkaline Phosphatase 75 U/L (45-117) 01/21/17 08:00 Total Protein 6.3 g/dl (6.4-8.2) L 01/21/17 08:00 Albumin 3.2 g/dl (3.4-5.0) L 01/21/17 08:00 Urine Color Yellow 01/20/17 21:45 Urine Appearance Cloudy 01/20/17 21:45 Urine pH 7.0 (5.0-8.0) D 01/20/17 21:45 Ur Specific [place] 1.020 (1.005-1.025) 01/20/17 21:45 Urine Protein 1+ (NEGATIVE) H 01/20/17 21:45 Urine Glucose (UA) Negative (NEGATIVE) 01/20/17 21:45 Urine Ketones Negative (NEGATIVE) 01/20/17 21:45 Urine Blood 1+ (NEGATIVE) H 01/20/17 21:45 Urine Nitrite Negative (NEGATIVE) 01/20/17 21:45 Urine Bilirubin Negative (NEGATIVE) 01/20/17 21:45 Urine Urobilinogen Negative mg/dL (0.2-1.0) 01/20/17 21:45 Urine RBC 1 /hpf (0-3) 01/20/17 21:45 Urine WBC 17 /hpf (3-5) 01/20/17 21:45 Ur Epithelial Cells Rare /hpf (FEW) 01/20/17 21:45 Urine Bacteria Rare /hpf (NONE SEEN) 01/20/17 21:45 Urine Mucus Rare 01/20/17 21:45 RPR Titer Nonreactive (NONREACTIVE) 01/21/17 08:00 HIV 1&2 Antibody Screen Negative 01/21/17 08:00 HIV P24 Antigen Negative 01/21/17 08:00 NO DIZZINESS Assessment: 01/21/17 12:33 WITHDRAWAL SYMPTOM Plan: CONTINUE DETOX
[2017-01-21] MEDS ORDERED: FLU VACCINE QUAD 60 MCG/0.5 ML (MDV 17-18) IM ONE (14:00)
--- NOTE | 2017-01-21 20:52 | EKG ---
Test Reason : Blood Pressure : / mmHG Vent. Rate : 051 BPM Atrial Rate : 051 BPM P-R Int : 154 ms QRS Dur : 074 ms QT Int : 452 ms P-R-T Axes : 067 048 024 degrees QTc Int : 416 ms SINUS BRADYCARDIA SEPTAL INFARCT , AGE UNDETERMINED EARLY R WAVE PROGRESSION NONSPECIFIC T WAVE ABNORMALITY INFEROLATERAL LEADS ABNORMAL ECG WHEN COMPARED WITH ECG OF 02-AUG-2016 14:04, NONSPECIFIC T WAVE ABNORMALITY NOW EVIDENT IN INFEROLATERAL LEADS Confirmed by JASMINE HAAS MD ([id number]) on 01/21/2017 8:52:02 PM Referred By: Confirmed By:JASMINE HAAS MD
[2017-01-21] MEDS: THIAMINE HCL 100 MG TABLET (FP) PO SCH (23:28)
[2017-01-22] MEDS: chlordiazePOXIDE HCL 25 MG CAPSULE PO SCH ×2 (07:26→10:55)
--- NOTE | 2017-01-22 10:32 | PN ---
[facility] CIWA - CIWA Score Nausea/Vomitin Muscle Tremors: 3 Anxiety: 3 Agitation: 2 Paroxysmal Sweats: 1-Minimal Palms Moist Orientation: 0-Oriented Tacttile Disturbances: 1-Very Mild Itch/Numbness Auditory Disturbances: 1-Very Mild Visual Disturbances: 1-Very Mild Sensitivity Headache: 2-Mild CIWA-Ar Total Score: 17 BHS Progress Note (SOAP) Subjective: alert,irritable,anxious,interrupted sleep,tremor,s/p suprapubic cystostomy with leg bag Objective: 01/22/17 10:37 Vital Signs Temperature 97.5 F L 01/22/17 06:28 Pulse Rate 60 01/22/17 06:28 Respiratory Rate 16 01/22/17 06:28 Blood Pressure 119/69 01/22/17 06:28 O2 Sat by Pulse Oximetry (%) Laboratory Last Values WBC 4.8 K/mm3 (4.0-10.0) 01/21/17 08:00 RBC 3.96 M/mm3 (4.00-5.60) L 01/21/17 08:00 Hgb 12.8 GM/dL (11.7-16.9) 01/21/17 08:00 Hct 38.5 % (35.4-49) 01/21/17 08:00 MCV 97.1 fl (80-96) H 01/21/17 08:00 MCH 32.4 pg (25.7-33.7) 01/21/17 08:00 MCHC 33.4 g/dl (32.0-35.9) 01/21/17 08:00 RDW 14.4 % (11.9-15.9) 01/21/17 08:00 Plt Count 199 K/MM3 (134-434) D 01/21/17 08:00 MPV 8.7 fl (7.5-11.1) D 01/21/17 08:00 Sodium 142 mmol/L (136-145) 01/21/17 08:00 Potassium 4.0 mmol/L (3.5-5.1) 01/21/17 08:00 Chloride 109 mmol/L (98-107) H 01/21/17 08:00 Carbon Dioxide 28 mmol/L (21-32) 01/21/17 08:00 Anion Gap 5 (8-16) L 01/21/17 08:00 BUN 15 mg/dL (7-18) D 01/21/17 08:00 Creatinine 1.2 mg/dL (0.7-1.3) 01/21/17 08:00 Creat Clearance w eGFR > 60 (>60) 01/21/17 08:00 Random Glucose 89 mg/dL (74-106) D 01/21/17 08:00 Calcium 8.6 mg/dL (8.5-10.1) 01/21/17 08:00 Total Bilirubin 0.8 mg/dL (0.2-1.0) D 01/21/17 08:00 AST 19 U/L (15-37) D 01/21/17 08:00 ALT 24 U/L (12-78) 01/21/17 08:00 Alkaline Phosphatase 75 U/L (45-117) 01/21/17 08:00 Total Protein 6.3 g/dl (6.4-8.2) L 01/21/17 08:00 Albumin 3.2 g/dl (3.4-5.0) L 01/21/17 08:00 Urine Color Yellow 01/20/17 21:45 Urine Appearance Cloudy 01/20/17 21:45 Urine pH 7.0 (5.0-8.0) D 01/20/17 21:45 Ur Specific [place] 1.020 (1.005-1.025) 01/20/17 21:45 Urine Protein 1+ (NEGATIVE) H 01/20/17 21:45 Urine Glucose (UA) Negative (NEGATIVE) 01/20/17 21:45 Urine Ketones Negative (NEGATIVE) 01/20/17 21:45 Urine Blood 1+ (NEGATIVE) H 01/20/17 21:45 Urine Nitrite Negative (NEGATIVE) 01/20/17 21:45 Urine Bilirubin Negative (NEGATIVE) 01/20/17 21:45 Urine Urobilinogen Negative mg/dL (0.2-1.0) 01/20/17 21:45 Urine RBC 1 /hpf (0-3) 01/20/17 21:45 Urine WBC 17 /hpf (3-5) 01/20/17 21:45 Ur Epithelial Cells Rare /hpf (FEW) 01/20/17 21:45 Urine Bacteria Rare /hpf (NONE SEEN) 01/20/17 21:45 Urine Mucus Rare 01/20/17 21:45 RPR Titer Nonreactive (NONREACTIVE) 01/21/17 08:00 HIV 1&2 Antibody Screen Negative 01/21/17 08:00 HIV P24 Antigen Negative 01/21/17 08:00 Assessment: 01/22/17 10:38 withdrawal symptom Plan: continue detox
[2017-01-22] MEDS: PRENATAL VITAMINS W/ FOLIC ACID TABLET (FP) PO SCH (10:54)
[2017-01-22] MEDS: NICOTINE POLACRILEX 4 MG GUM BUC PRN ×2 (10:56→18:01)
[2017-01-22] MEDS: chlordiazePOXIDE 5 MG CAPSULE PO SCH ×2 (17:59→23:00)
[2017-01-22] MEDS: THIAMINE HCL 100 MG TABLET (FP) PO SCH (23:00)
[2017-01-23] MEDS: chlordiazePOXIDE 5 MG CAPSULE PO SCH ×2 (06:40→10:50)
--- NOTE | 2017-01-23 10:28 | PN ---
S Progress Note (SOAP) Subjective: ALERT,IRRITABLE,ANXIOUS,INTERRUPTED SLEEP, Objective: 01/23/17 10:27 Vital Signs Temperature 97.5 F L 01/23/17 06:00 Pulse Rate 54 L 01/23/17 06:00 Respiratory Rate 18 01/23/17 06:00 Blood Pressure 113/66 01/23/17 06:00 O2 Sat by Pulse Oximetry (%) Assessment: 01/23/17 10:28 WITHDRAWAL SYMPTOM Plan: CONTINUE DETOX,DISCHARGE IN AM
[2017-01-23] MEDS: PRENATAL VITAMINS W/ FOLIC ACID TABLET (FP) PO SCH (10:50)
[2017-01-23] MEDS: chlordiazePOXIDE HCL 10 MG CAPSULE PO SCH ×2 (17:42→22:02)
[2017-01-23] MEDS: NICOTINE POLACRILEX 4 MG GUM BUC PRN ×2 (17:42→22:02)
[2017-01-23] MEDS: THIAMINE HCL 100 MG TABLET (FP) PO SCH (22:02)
[2017-01-24] MEDS: chlordiazePOXIDE HCL 10 MG CAPSULE PO SCH (06:06)
--- NOTE | 2017-01-24 08:23 | DS ---
[facility] Detox Discharge Summary Admission Date: 01/20/17 Discharge Date: 01/24/17 - History Present History: Alcohol Dependence, Cannabis Dependence, Cocaine Dependence, Sedative Dependence Additional Comments: follow up with after care program as arrangement Pertinent Past History: nicotine dependence s/p suprapubic cystostomy - Physical Exam Results Vital Signs: Vital Signs Temperature 97.9 F 01/24/17 06:00 Pulse Rate 54 L 01/24/17 06:00 Respiratory Rate 18 01/24/17 06:00 Blood Pressure 123/74 01/24/17 06:00 O2 Sat by Pulse Oximetry (%) Pertinent Admission Physical Exam Findings: withdrawal symptom - Treatment Hospital Course: Detox Protocol Followed, Detoxed Safely, Responded well, Discharged Condition Good Patient has Accepted a Rehab Referral to: declined - Medication Discharge Medications: Ambulatory Orders NK [No Known Home Medication] 01/20/17 - AMA Did Patient Leave Against Medical Advice: No
[2017-01-24 10:10] VITALS: BP 134/79; PULSE 78; TEMP 96.3
== END 2017-01-24 08:50 | disposition home or self-care (01) | DRG 774 ==
LOC: YASAS 09:22 → Y6N 13:19
PROVIDERS: ADMIT Internal Medicine; ATTEND Internal Medicine
PROC: HZ2ZZZZ Detoxification Services for Substance Abuse Treatment (ICD-10-PCS; principal; 2017-01-20)
DX: F10.230 Alcohol dependence with withdrawal, uncomplicated (principal); F13.230 Sedative, hypnotic or anxiolytic dependence with withdrawal, uncomplicated; F14.20 Cocaine dependence, uncomplicated; F12.20 Cannabis dependence, uncomplicated; F17.210 Nicotine dependence, cigarettes, uncomplicated; R00.1 Bradycardia, unspecified; Z93.50 Unspecified cystostomy status
CPT/HCPCS: 36415; 80053; 81003; 81015; 85027; 86593; 87389; 93005; 93010

== ENCOUNTER 2017-03-19 09:03 | Inpatient (IN) | payer OTHER ==
[2017-03-19 09:58] VITALS: BMI 19.9
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
[2017-03-19] MEDS ORDERED: chlordiazePOXIDE HCL 25 MG CAPSULE PO PRN (14:33)
[2017-03-19] MEDS ORDERED: MAG HYDROX/AL HYDROX/SIMETH 30 ML UNIT-DOSE CUP PO PRN (14:33)
[2017-03-19] MEDS ORDERED: ACETAMINOPHEN 325 MG TABLET (FP) PO PRN (14:33)
[2017-03-19] MEDS ORDERED: MAGNESIUM CITRATE 300 ML BOTTLE PO PRN (14:33)
[2017-03-19] MEDS ORDERED: P-EPHED 60MG/TRIPROLIDI 2.5MG TABLET PO PRN (14:33)
[2017-03-19] MEDS ORDERED: guaiFENesin/D-METHORPHAN HB 10 ML UNIT-DOSE CUPS PO PRN (14:33)
[2017-03-19] MEDS ORDERED: LOPERAMIDE HCL 2 MG CAPSULE PO PRN (14:33)
[2017-03-19] MEDS ORDERED: MAGNESIUM HYDROX 2400MG/30ML ORAL SUSPENSION 30 ML CUP PO PRN (14:33)
[2017-03-19] MEDS ORDERED: MENTHOL/PHENOL 1 EACH UD MM PRN (14:33)
[2017-03-19] MEDS ORDERED: IBUPROFEN 400 MG TABLET (FP) PO PRN (14:33)
[2017-03-19] MEDS ORDERED: chlordiazePOXIDE HCL 25 MG CAPSULE PO ONE (14:43)
[2017-03-19] MEDS: NICOTINE 14 MG/24 HOURS TOPICAL PATCH TD SCH (15:49)
[2017-03-19] MEDS: chlordiazePOXIDE HCL 25 MG CAPSULE PO SCH ×2 (17:38→22:36)
[2017-03-19 22:05] LABS: URINE APPEARANCE CLOUDY; URINE BILIRUBIN NEGATIVE (NEGATIVE); URINE BLOOD NEGATIVE (NEGATIVE); URINE COLOR YELLOW; URINE GLUCOSE (UA) NEGATIVE (NEGATIVE); URINE KETONE TRACE (NEGATIVE); URINE NITRITE NEGATIVE (NEGATIVE); URINE UROBILINOGEN NEGATIVE mg/dL (0.2-1.0)
[2017-03-19 22:06] LABS: URINE PROTEIN 1+ (NEGATIVE)
[2017-03-19 22:10] LABS: URINE BACTERIA RARE /hpf (NONE SEEN); URINE MUCUS RARE; URINE RBC <1 /hpf (0-3); URINE WBC 18 /hpf (3-5)
[2017-03-19] MEDS: THIAMINE HCL 100 MG TABLET (FP) PO SCH (22:35)
[2017-03-19] MEDS: PATIENT'S OWN MEDICATION (NON-FORMULARY) (Methenamine Hippurate 1 GM) PO SCH (22:35)
[2017-03-20 00:37] LABS: HIV 1 & 2 AB NEGATIVE; HIV 1 AGp24 NEGATIVE
[2017-03-20] MEDS: chlordiazePOXIDE HCL 25 MG CAPSULE PO SCH ×4 (05:39→23:27)
[2017-03-20 09:37] LABS: URINE LEUK ESTERASE 2+ (NEGATIVE)
[2017-03-20 10:06] LABS: MCH 32.4 pg (25.7-33.7); MCHC 33.2 g/dl (32.0-35.9); MEAN CELL VOLUME 97.5 fl (80-96); MEAN PLT VOLUME 10.3 fl (7.5-11.1); PLATELET COUNT 215 K/MM3 (134-434); RDW 14.2 % (11.9-15.9); WHITE BLOOD COUNT 5.7 K/mm3 (4.0-10.0)
--- NOTE | 2017-03-20 10:18 | EKG ---
Test Reason : Blood Pressure : / mmHG Vent. Rate : 077 BPM Atrial Rate : 077 BPM P-R Int : 170 ms QRS Dur : 074 ms QT Int : 392 ms P-R-T Axes : 078 056 022 degrees QTc Int : 443 ms NORMAL SINUS RHYTHM NORMAL ECG WHEN COMPARED WITH ECG OF 20-JAN-2017 13:45, VENT. RATE HAS INCREASED BY 26 BPM CRITERIA FOR SEPTAL INFARCT ARE NO LONGER PRESENT Confirmed by JOE ANGELA, ROHAN ([id number]) on 03/20/2017 10:17:58 AM Referred By: Confirmed By:ROHAN DIAZ MD
[2017-03-20] MEDS: NICOTINE 14 MG/24 HOURS TOPICAL PATCH TD SCH (10:33)
[2017-03-20] MEDS: PRENATAL VITAMINS W/ FOLIC ACID TABLET (FP) PO SCH (10:33)
[2017-03-20] MEDS: PATIENT'S OWN MEDICATION (NON-FORMULARY) (Methenamine Hippurate 1 GM) PO SCH ×2 (10:34→23:27)
[2017-03-20 10:49] LABS: ALBUMIN 4.2 g/dl (3.4-5.0); ALK PHOS 87 U/L (45-117); ANION GAP 6 (8-16); BILIRUBIN,TOTAL 0.7 mg/dL (0.2-1.0); CALCIUM 9.1 mg/dL (8.5-10.1); CO2 29 mmol/L (21-32); CREATININE 1.2 mg/dL (0.7-1.3); GLUCOSE,RANDOM 84 mg/dL (74-106); SGOT/AST 28 U/L (15-37); SGPT/ALT 28 U/L (12-78); TOT PROT 7.5 g/dl (6.4-8.2)
--- NOTE | 2017-03-20 11:56 | PN ---
[facility] CIWA - CIWA Score Nausea/Vomitin-No Nausea/No Vomiting Muscle Tremors: 3 Anxiety: 4-Mod. Anxious/Guarded Agitation: 2 Paroxysmal Sweats: 3 Orientation: 0-Oriented Tacttile Disturbances: 3-Moderate Itch/Numb/Burn Auditory Disturbances: 1-Very Mild Visual Disturbances: 2-Mild Sensitivity Headache: 0-None Present CIWA-Ar Total Score: 18 S Progress Note (SOAP) Subjective: Fatigue, Sweating, Tremors. Objective: PT. A & O X 3. NO ACUTE DISTRESS. 03/20/17 11:51 Vital Signs Temperature 96.2 F L 03/20/17 09:13 Pulse Rate 83 03/20/17 09:13 Respiratory Rate 18 03/20/17 09:13 Blood Pressure 111/72 03/20/17 09:13 O2 Sat by Pulse Oximetry (%) Laboratory Tests 03/19/17 03/19/17 03/20/17 11:30 15:00 05:45 WBC 5.7 RBC 4.16 Hgb 13.5 Hct 40.6 MCV 97.5 H MCH 32.4 MCHC 33.2 RDW 14.2 Plt Count 215 MPV 10.3 D Sodium Potassium Chloride Carbon Dioxide Anion Gap BUN Creatinine Creat Clearance w eGFR Random Glucose Calcium Total Bilirubin AST ALT Alkaline Phosphatase Total Protein Albumin Urine Color Yellow Urine Appearance Cloudy Urine pH 7.0 Ur Specific [place] 1.012 Urine Protein 1+ H Urine Glucose (UA) Negative Urine Ketones Trace H Urine Blood Negative Urine Nitrite Negative Urine Bilirubin Negative Urine Urobilinogen Negative Ur Leukocyte Esterase 2+ H Urine WBC (Auto) 18 Urine RBC (Auto) <1 Ur Epithelial Cells Rare Urine Bacteria Rare Urine Mucus Rare HIV 1&2 Antibody Screen Negative HIV P24 Antigen Negative 03/20/17 05:45 WBC RBC Hgb Hct MCV MCH MCHC RDW Plt Count MPV Sodium 142 Potassium 4.2 Chloride 107 Carbon Dioxide 29 Anion Gap 6 L BUN 15 Creatinine 1.2 Creat Clearance w eGFR > 60 Random Glucose 84 Calcium 9.1 Total Bilirubin 0.7 AST 28 D ALT 28 Alkaline Phosphatase 87 Total Protein 7.5 Albumin 4.2 D Urine Color Urine Appearance Urine pH Ur Specific [place] Urine Protein Urine Glucose (UA) Urine Ketones Urine Blood Urine Nitrite Urine Bilirubin Urine Urobilinogen Ur Leukocyte Esterase Urine WBC (Auto) Urine RBC (Auto) Ur Epithelial Cells Urine Bacteria Urine Mucus HIV 1&2 Antibody Screen HIV P24 Antigen LABS NOTED. RPR RESULT PENDING. 03/20/17 11:55 Assessment: 03/20/17 11:52 WITHDRAWAL SYMPTOMS. Plan: CONTINUED DETOX. REPEAT UA ALONG WITH URINE C + S FOR ADMISSION UA ABNORMALITIES. INCREASE DAILY PO FLUID INTAKE.
[2017-03-20 21:33] LABS: PH,URINE 8.5 (5.0-8.0); URINE APPEARANCE SL CLOUDY; URINE BILIRUBIN NEGATIVE (NEGATIVE); URINE BLOOD NEGATIVE (NEGATIVE); URINE COLOR LT. YELLOW; URINE GLUCOSE (UA) NEGATIVE (NEGATIVE); URINE KETONE NEGATIVE (NEGATIVE); URINE PROTEIN NEGATIVE (NEGATIVE); URINE UROBILINOGEN 0.2 mg/dL (0.2-1.0)
[2017-03-20 21:34] LABS: URINE NITRITE POSITIVE (NEGATIVE)
[2017-03-20] MEDS: THIAMINE HCL 100 MG TABLET (FP) PO SCH (23:27)
[2017-03-21 02:32] LABS: CALCIUM OXALATE CRYSTALS RARE /hpf (NONE SEEN); URINE BACTERIA FEW /hpf (NONE SEEN); URINE MUCUS RARE; URINE RBC 1 /hpf (0-3); URINE WBC 26 /hpf (3-5)
[2017-03-21] MEDS: chlordiazePOXIDE HCL 25 MG CAPSULE PO SCH ×2 (05:33→10:48)
[2017-03-21 10:26] LABS: URINE LEUK ESTERASE 2+ (NEGATIVE)
--- NOTE | 2017-03-21 10:47 | PN ---
[facility] CIWA - CIWA Score Nausea/Vomitin-No Nausea/No Vomiting Muscle Tremors: 3 Anxiety: 3 Agitation: 1-Slight > Activity Paroxysmal Sweats: No Perspiration Orientation: 0-Oriented Tacttile Disturbances: 3-Moderate Itch/Numb/Burn Auditory Disturbances: 2-Mild Harshness/Frighten Visual Disturbances: 3-Moderate Sensitivity Headache: 0-None Present CIWA-Ar Total Score: 15 S Progress Note (SOAP) Subjective: Body Aches, Tremors, Interrupted Sleep. Objective: PT. A & O X 3. NO ACUTE DISTRESS. 03/21/17 10:44 Vital Signs Temperature 96.9 F L 03/21/17 09:13 Pulse Rate 76 03/21/17 09:13 Respiratory Rate 18 03/21/17 09:13 Blood Pressure 108/74 03/21/17 09:13 O2 Sat by Pulse Oximetry (%) Laboratory Tests 03/19/17 03/19/17 03/20/17 11:30 15:00 05:45 WBC 5.7 RBC 4.16 Hgb 13.5 Hct 40.6 MCV 97.5 H MCH 32.4 MCHC 33.2 RDW 14.2 Plt Count 215 MPV 10.3 D Sodium Potassium Chloride Carbon Dioxide Anion Gap BUN Creatinine Creat Clearance w eGFR Random Glucose Calcium Total Bilirubin AST ALT Alkaline Phosphatase Total Protein Albumin Urine Color Yellow Urine Appearance Cloudy Urine pH 7.0 Ur Specific [place] 1.012 Urine Protein 1+ H Urine Glucose (UA) Negative Urine Ketones Trace H Urine Blood Negative Urine Nitrite Negative Urine Bilirubin Negative Urine Urobilinogen Negative Ur Leukocyte Esterase 2+ H Urine WBC (Auto) 18 Urine RBC (Auto) <1 Ur Epithelial Cells Rare Calcium Oxalate Crystal Urine Bacteria Rare Urine Mucus Rare RPR Titer HIV 1&2 Antibody Screen Negative HIV P24 Antigen Negative 03/20/17 03/20/17 03/20/17 05:45 05:45 19:00 WBC RBC Hgb Hct MCV MCH MCHC RDW Plt Count MPV Sodium 142 Potassium 4.2 Chloride 107 Carbon Dioxide 29 Anion Gap 6 L BUN 15 Creatinine 1.2 Creat Clearance w eGFR > 60 Random Glucose 84 Calcium 9.1 Total Bilirubin 0.7 AST 28 D ALT 28 Alkaline Phosphatase 87 Total Protein 7.5 Albumin 4.2 D Urine Color Lt. yellow Urine Appearance Sl cloudy Urine pH 8.5 H D Ur Specific [place] 1.010 Urine Protein Negative Urine Glucose (UA) Negative Urine Ketones Negative Urine Blood Negative Urine Nitrite Positive Urine Bilirubin Negative Urine Urobilinogen 0.2 Ur Leukocyte Esterase 2+ H Urine WBC (Auto) 26 Urine RBC (Auto) 1 Ur Epithelial Cells Rare Calcium Oxalate Crystal Rare Urine Bacteria Few Urine Mucus Rare RPR Titer Nonreactive HIV 1&2 Antibody Screen HIV P24 Antigen LABS NOTED. RESULTS OF REPEAT UA NOTED. RESULT OF URINE C + S PENDING. 03/21/17 10:45 Assessment: 03/21/17 10:44 WITHDRAWAL SYMPTOMS. Plan: CONTINUE DETOX. START KEFLEX, 500 MG PO QID FOR PROBABLE UTI (PATIENT REPORTS HISTORY OF TAKING KEFLEX IN PAST FOR RECURRENT, UTI'S, HISTORY OF OF SUPRAPUBIC CATHETER).
[2017-03-21] MEDS: PRENATAL VITAMINS W/ FOLIC ACID TABLET (FP) PO SCH (10:48)
[2017-03-21] MEDS: PATIENT'S OWN MEDICATION (NON-FORMULARY) (Methenamine Hippurate 1 GM) PO SCH ×2 (10:48→22:44)
[2017-03-21] MEDS: NICOTINE 14 MG/24 HOURS TOPICAL PATCH TD SCH (10:52)
[2017-03-21] MEDS: CEPHALEXIN MONOHYDRATE 500 MG CAPSULE (UD) PO SCH ×3 (13:17→22:45)
[2017-03-21] MEDS: chlordiazePOXIDE 5 MG CAPSULE PO SCH ×2 (17:09→22:44)
[2017-03-21] MEDS: THIAMINE HCL 100 MG TABLET (FP) PO SCH (22:44)
[2017-03-21] MEDS: NICOTINE POLACRILEX 2 MG GUM BUC PRN (22:47)
[2017-03-22] MEDS: chlordiazePOXIDE 5 MG CAPSULE PO SCH ×2 (05:30→11:18)
[2017-03-22] MEDS: NICOTINE POLACRILEX 2 MG GUM BUC PRN ×4 (05:31→22:26)
[2017-03-22] MEDS: CEPHALEXIN MONOHYDRATE 500 MG CAPSULE (UD) PO SCH ×4 (11:16→22:23)
[2017-03-22] MEDS: PATIENT'S OWN MEDICATION (NON-FORMULARY) (Methenamine Hippurate 1 GM) PO SCH ×2 (11:17→22:23)
[2017-03-22] MEDS: NICOTINE 14 MG/24 HOURS TOPICAL PATCH TD SCH (11:17)
[2017-03-22] MEDS: PRENATAL VITAMINS W/ FOLIC ACID TABLET (FP) PO SCH (11:18)
--- NOTE | 2017-03-22 12:05 | PN ---
[facility] Progress Note (SOAP) Subjective: Sweating. Objective: PT. A & O X 3, OBSERVED AMBULATING ON UNIT. NO ACUTE DISTRESS. 03/22/17 12:04 Vital Signs Temperature 98.4 F 03/22/17 09:17 Pulse Rate 69 03/22/17 09:17 Respiratory Rate 18 03/22/17 09:17 Blood Pressure 109/68 03/22/17 09:17 O2 Sat by Pulse Oximetry (%) Laboratory Tests 03/19/17 03/19/17 03/20/17 11:30 15:00 05:45 WBC 5.7 RBC 4.16 Hgb 13.5 Hct 40.6 MCV 97.5 H MCH 32.4 MCHC 33.2 RDW 14.2 Plt Count 215 MPV 10.3 D Sodium Potassium Chloride Carbon Dioxide Anion Gap BUN Creatinine Creat Clearance w eGFR Random Glucose Calcium Total Bilirubin AST ALT Alkaline Phosphatase Total Protein Albumin Urine Color Yellow Urine Appearance Cloudy Urine pH 7.0 Ur Specific [place] 1.012 Urine Protein 1+ H Urine Glucose (UA) Negative Urine Ketones Trace H Urine Blood Negative Urine Nitrite Negative Urine Bilirubin Negative Urine Urobilinogen Negative Ur Leukocyte Esterase 2+ H Urine WBC (Auto) 18 Urine RBC (Auto) <1 Ur Epithelial Cells Rare Calcium Oxalate Crystal Urine Bacteria Rare Urine Mucus Rare RPR Titer HIV 1&2 Antibody Screen Negative HIV P24 Antigen Negative 03/20/17 03/20/17 03/20/17 05:45 05:45 19:00 WBC RBC Hgb Hct MCV MCH MCHC RDW Plt Count MPV Sodium 142 Potassium 4.2 Chloride 107 Carbon Dioxide 29 Anion Gap 6 L BUN 15 Creatinine 1.2 Creat Clearance w eGFR > 60 Random Glucose 84 Calcium 9.1 Total Bilirubin 0.7 AST 28 D ALT 28 Alkaline Phosphatase 87 Total Protein 7.5 Albumin 4.2 D Urine Color Lt. yellow Urine Appearance Sl cloudy Urine pH 8.5 H D Ur Specific [place] 1.010 Urine Protein Negative Urine Glucose (UA) Negative Urine Ketones Negative Urine Blood Negative Urine Nitrite Positive Urine Bilirubin Negative Urine Urobilinogen 0.2 Ur Leukocyte Esterase 2+ H Urine WBC (Auto) 26 Urine RBC (Auto) 1 Ur Epithelial Cells Rare Calcium Oxalate Crystal Rare Urine Bacteria Few Urine Mucus Rare RPR Titer Nonreactive HIV 1&2 Antibody Screen HIV P24 Antigen LABS NOTED. RESULT OF URINE C + S NOTED. 03/22/17 12:07 Assessment: 11/30/17 12:04 WITHDRAWAL SYMPTOMS. Plan: CONTINUED DETOX. CONTINUE KEFLEX, 500 MG PO QID. INCREASE DAILY PO FLUID INTAKE. URINE C + S NOT TO BE RE-ORDERED - PATIENT SCHEDULED FOR DISCHARGE TOMORROW AM. PATIENT REPORTS THAT HE HAS UPCOMING APPOINTMENT TO SEE UROLOGIST DR. BRUCE ( [facility], [place], [place] ON 03/27/2017).
[2017-03-22] MEDS: chlordiazePOXIDE HCL 10 MG CAPSULE PO SCH ×2 (17:17→22:23)
[2017-03-22] MEDS: THIAMINE HCL 100 MG TABLET (FP) PO SCH (22:23)
[2017-03-23] MEDS: NICOTINE POLACRILEX 2 MG GUM BUC PRN (05:43)
[2017-03-23] MEDS: chlordiazePOXIDE HCL 10 MG CAPSULE PO SCH (05:44)
[2017-03-23 06:13] VITALS: BP 116/67; PULSE 60; TEMP 97.1
--- NOTE | 2017-03-23 18:49 | DS ---
[facility] Detox Discharge Summary Admission Date: 03/19/17 Discharge Date: 03/23/17 - History Present History: Alcohol Dependence, Cannabis Dependence, Cocaine Dependence, Sedative Dependence Additional Comments: PATIENT ELECTING TO GO HOME. PATIENT ADVISED TO CONSIDER LOCAL 12-STEP / NA / AA OUTPATIENT SUPPORT GROUP MEETINGS FOR AFTERCARE. PATIENT ALSO ADVISED TO FOLLOW-UP WITH UROLOGIST DR. BRUCE ([facility]) FOR FOLLOW-UP EVALUATION OF UTI AND FOR HISTORY OF SUPRAPUBIC CATHETER PLACEMENT. PRESCRIPTION FOR REMAINDER OF FULL COURSE OF ANTIBIOTIC (KEFLEX, 500 MG PO QID) STARTED FOR UTI WHILE ADMITTED FOR DETOX SENT TO PATIENT'S PHARMACY ([facility], [place], [place] FOR FOLLOW-UP. PATIENT WAS DISCHARGED FROM DETOX UNIT IN STABLE MEDICAL CONDITION. Pertinent Past History: History of Suprapubic Catheter, Blind in Right Eye, UTI, Nicotine Dependence. - Physical Exam Results Vital Signs: Vital Signs Temperature 97.1 F L 03/23/17 06:13 Pulse Rate 60 03/23/17 06:13 Respiratory Rate 16 03/23/17 06:13 Blood Pressure 116/67 03/23/17 06:13 O2 Sat by Pulse Oximetry (%) Pertinent Admission Physical Exam Findings: WITHDRAWAL SYMPTOMS. Laboratory Tests 03/19/17 03/19/17 03/20/17 11:30 15:00 05:45 WBC 5.7 RBC 4.16 Hgb 13.5 Hct 40.6 MCV 97.5 H MCH 32.4 MCHC 33.2 RDW 14.2 Plt Count 215 MPV 10.3 D Sodium Potassium Chloride Carbon Dioxide Anion Gap BUN Creatinine Creat Clearance w eGFR Random Glucose Calcium Total Bilirubin AST ALT Alkaline Phosphatase Total Protein Albumin Urine Color Yellow Urine Appearance Cloudy Urine pH 7.0 Ur Specific [place] 1.012 Urine Protein 1+ H Urine Glucose (UA) Negative Urine Ketones Trace H Urine Blood Negative Urine Nitrite Negative Urine Bilirubin Negative Urine Urobilinogen Negative Ur Leukocyte Esterase 2+ H Urine WBC (Auto) 18 Urine RBC (Auto) <1 Ur Epithelial Cells Rare Calcium Oxalate Crystal Urine Bacteria Rare Urine Mucus Rare RPR Titer HIV 1&2 Antibody Screen Negative HIV P24 Antigen Negative 03/20/17 03/20/17 03/20/17 05:45 05:45 19:00 WBC RBC Hgb Hct MCV MCH MCHC RDW Plt Count MPV Sodium 142 Potassium 4.2 Chloride 107 Carbon Dioxide 29 Anion Gap 6 L BUN 15 Creatinine 1.2 Creat Clearance w eGFR > 60 Random Glucose 84 Calcium 9.1 Total Bilirubin 0.7 AST 28 D ALT 28 Alkaline Phosphatase 87 Total Protein 7.5 Albumin 4.2 D Urine Color Lt. yellow Urine Appearance Sl cloudy Urine pH 8.5 H D Ur Specific [place] 1.010 Urine Protein Negative Urine Glucose (UA) Negative Urine Ketones Negative Urine Blood Negative Urine Nitrite Positive Urine Bilirubin Negative Urine Urobilinogen 0.2 Ur Leukocyte Esterase 2+ H Urine WBC (Auto) 26 Urine RBC (Auto) 1 Ur Epithelial Cells Rare Calcium Oxalate Crystal Rare Urine Bacteria Few Urine Mucus Rare RPR Titer Nonreactive HIV 1&2 Antibody Screen HIV P24 Antigen LABS NOTED. - Treatment Hospital Course: Detox Protocol Followed, Detoxed Safely, Responded well, Discharged Condition Good Patient has Accepted a Rehab Referral to: PT GOING HOME, ADVISED TO CONSIDER LOCAL 12-STEP/AA/NA OUTPATIENT MEETINGS. - Medication Discharge Medications: Ambulatory Orders Ascorbic Acid [Vitamin C -] 500 mg PO BID 03/19/17 Methenamine Hippurate [Hiprex [Nf] -] 1 gm PO BID 03/19/17 Cephalexin [Keflex] 500 mg PO QID 7 Days #28 capsule 03/22/17 - Diagnosis (1) Sedative, hypnotic or anxiolytic dependence, uncomplicated Status: Acute (2) Alcohol dependence Status: Acute Qualifiers: Substance use status: in withdrawal Complication of substance-induced condition: uncomplicated Qualified Code(s): F10.230 - Alcohol dependence with withdrawal, uncomplicated (3) Cocaine dependence Status: Acute Qualifiers: Substance use status: uncomplicated Qualified Code(s): F14.20 - Cocaine dependence, uncomplicated (4) Nicotine dependence Status: Acute Qualifiers: Nicotine product type: cigarettes Substance use status: in withdrawal Qualified Code(s): F17.213 - Nicotine dependence, cigarettes, with withdrawal (5) Blind right eye Status: Chronic (6) Cannabis dependence Status: Chronic (7) Suprapubic catheter Status: Chronic - AMA Did Patient Leave Against Medical Advice: No
== END 2017-03-23 07:05 | disposition home or self-care (01) | DRG 774 ==
LOC: YASAS 09:03 → Y3N 12:24
PROVIDERS: ADMIT Internal Medicine; ATTEND Internal Medicine
PROC: HZ2ZZZZ Detoxification Services for Substance Abuse Treatment (ICD-10-PCS; principal; 2017-03-19)
DX: F13.230 Sedative, hypnotic or anxiolytic dependence with withdrawal, uncomplicated (principal); F10.230 Alcohol dependence with withdrawal, uncomplicated; F14.20 Cocaine dependence, uncomplicated; F12.20 Cannabis dependence, uncomplicated; F17.213 Nicotine dependence, cigarettes, with withdrawal; H54.40 Blindness, one eye, unspecified eye; Z93.59 Other cystostomy status
CPT/HCPCS: 36415; 80053; 81003; 81015; 85027; 86593; 87086; 87389; 93005; 93010

== ENCOUNTER 2017-04-28 13:57 | Inpatient (IN) | payer OTHER ==
[2017-04-28 15:52] VITALS: BMI 19.5
--- NOTE | 2017-04-28 16:50 | HP ---
CIWA Score - CIWA Score Nausea/Vomitin Muscle Tremors: 3 Anxiety: 2 Agitation: 2 Paroxysmal Sweats: 2 Orientation: 0-Oriented Tacttile Disturbances: 1-Very Mild Itch/Numbness Auditory Disturbances: 1-Very Mild Visual Disturbances: 1-Very Mild Sensitivity Headache: 2-Mild CIWA-Ar Total Score: 16 Admission ROS BHS - HPI Chief Complaint: I'm here for detox, I slipped during the new year Allergies/Adverse Reactions: Allergies Allergy/AdvReac Type Severity Reaction Status Date / Time No Known Allergies Allergy Verified 03/19/17 10:43 History of Present Illness: 56 y/o AA male with recent detox in February, presents for detox. He has had multiple treatments at [facility]. He denies extended sobriety, his longest period of sobriety lasted 3 weeks. Exam Limitations: No Limitations - Ebola screening Have you traveled outside of the country in the last 21 days: No Have you had contact with anyone from an Ebola affected area: No Have you been sick,other than usual withdrawal symptoms: No Do you have a fever: No - Review of Systems Constitutional: Loss of Appetite, Changes in sleep EENT: reports: Nose Congestion, Dental Problems (missing most of his teeth), Other (blind in the right eye) Respiratory: reports: Productive cough Cardiac: reports: No Symptoms Reported GI: reports: Nausea, Poor Appetite, Poor Fluid Intake : reports: Other (supra-pubic catheter) Musculoskeletal: reports: Joint Pain, Muscle Pain Neuro: reports: No Symptoms reported Endocrine: reports: No Symptoms Reported Hematology: reports: No Symptoms Reported Psychiatric: reports: Orientated x3 Other Systems: Reviewed and Negative Patient History - Patient Medical History Hx Anemia: No Hx Asthma: No Hx Chronic Obstructive Pulmonary Disease (COPD): No Hx Cancer: No Hx Cardiac Disorders: No Hx Congestive Heart Failure: No Hx Hypertension: No Hx Hypercholesterolemia: No Hx Pacemaker: No HX Cerebrovascular Accident: No Hx Seizures: No Hx Dementia: No Hx Diabetes: No Hx Gastrointestinal Disorders: No Hx Liver Disease: No Hx Genitourinary Disorders: No Hx Sexually Transmitted Disorders: No Hx Renal Disease (ESRD): No Hx Thyroid Disease: No Hx Human Immunodeficiency Virus (HIV): No Hx Hepatitis C: No Hx Depression: No Hx Suicide Attempt: No Hx Bipolar Disorder: No Hx Schizophrenia: No - Patient Surgical History Past Surgical History: Yes Hx Neurologic Surgery: No Hx Cataract Extraction: No Hx Cardiac Surgery: No Hx Lung Surgery: No Hx Breast Surgery: No Hx Breast Biopsy: No Hx Abdominal Surgery: No Hx Appendectomy: No Hx Cholecystectomy: No Hx Genitourinary Surgery: Yes ( suprapubic catheter insitu) Hx Section: No Hx Orthopedic Surgery: No Hx Hysterectomy: No Anesthesia Reaction: No - PPD History Previous Implant?: Yes Documented Results: Negative w/proof Implanted On Prior [facility] Admission?: Yes Date: 08/04/16 Results: 0mm PPD to be Administered?: No - Smoking Cessation Smoking history: Current every day smoker Have you smoked in the past 12 months: Yes Aproximately how many cigarettes per day: 5 Cigars Per Day: 0 Hx Chewing Tobacco Use: No Initiated information on smoking cessation: Yes 'Breaking Loose' booklet given: 04/28/17 - Substance & Tx. History Hx Alcohol Use: Yes (tiffany Gillis) Hx Substance Use: Yes Substance Use Type: Cocaine Hx Substance Use Treatment: No - Substances Abused Cocaine Amount used: $20 worth Age of first use: 30 Date of Last Use: 04/21/17 Alcohol Route: Oral Frequency: Daily Amount used: 2 pints Age of first use: 21 Date of Last Use: 04/28/17 Family Disease History - Family Disease History Family Disease History: Heart Disease: Mother (htn,), Other: Father ( alcohol,), Brother (twelve - one cancer, one copd, one cancer, etoh), Sister (four living, two (overdose, )), Son (2 - healthy), Daughter (2 - healthy) Admission Physical Exam S - Vital Signs Vital Signs: Vital Signs - 24 hr 04/28/17 15:48 Temperature 97.8 F Pulse Rate 99 H Respiratory 20 Rate Blood Pressure 135/90 - Physical HEENTM: Yes: Hearing grossly Normal, Normal ENT Inspection, Normocephalic, Normal Voice, Pharynx Normal, Nasal Congestion, Other (right eye blindness) Respiratory: Yes: Chest Non-Tender, Lungs Clear, Normal Breath Sounds, No Respiratory Distress, No Accessory Muscle Use Neck: Yes: No masses,lesions,Nodules, Trachea in good position Breast: Yes: Breast Exam Deferred Cardiology: Yes: Regular Rhythm, Regular Rate, S1, S2 Abdominal: Yes: Normal Bowel Sounds, Non Tender, Soft, Surgical Scar Genitourinary: Yes: Other (supra-pubic catheter insitu) Back: Yes: Normal Inspection Musculoskeletal: Yes: full range of Motion, Gait Steady, Pelvis Stable Extremities: Yes: Normal Inspection, Normal Range of Motion, Non-Tender Neurological: Yes: cue selector II-XII NML intact, Fully Oriented, Alert, Motor Strength 5/5, Normal Mood/Affect, Normal Response Integumentary: Yes: Normal Color, Dry, Warm Lymphatic: Yes: Within Normal Limits - Diagnostic (1) Alcohol dependence Current Visit: Yes Status: Acute Qualifiers: Substance use status: in withdrawal Complication of substance-induced condition: uncomplicated Qualified Code(s): F10.230 - Alcohol dependence with withdrawal, uncomplicated (2) Cocaine dependence Current Visit: No Status: Acute Qualifiers: Substance use status: uncomplicated Qualified Code(s): F14.20 - Cocaine dependence, uncomplicated (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 (4) Suprapubic catheter Current Visit: Yes Status: Chronic (5) Nicotine dependence Current Visit: No Status: Acute Qualifiers: Nicotine product type: cigarettes Substance use status: uncomplicated Qualified Code(s): F17.210 - Nicotine dependence, cigarettes, uncomplicated (6) Cough Current Visit: Yes Status: Acute Cleared for Admission [facility] - Detox or Rehab [facility] Level of Care: Medically Managed Detox Regimen/Protocol: Librium [facility] Breath Alcohol Content Breath Alcohol Content: 0 Urine Drug Screen - Results Drug Screen Negative: No Urine Drug Screen Results: TIFFANY-Cocaine
[2017-04-28] MEDS ORDERED: chlordiazePOXIDE HCL 25 MG CAPSULE PO PRN (17:03)
[2017-04-28] MEDS ORDERED: LOPERAMIDE HCL 2 MG CAPSULE PO PRN (17:03)
[2017-04-28] MEDS ORDERED: MAG HYDROX/AL HYDROX/SIMETH 30 ML UNIT-DOSE CUP PO PRN (17:03)
[2017-04-28] MEDS ORDERED: IBUPROFEN 400 MG TABLET (FP) PO PRN (17:03)
[2017-04-28] MEDS ORDERED: NICOTINE POLACRILEX 2 MG GUM BC PRN (17:03)
[2017-04-28] MEDS ORDERED: hydrOXYzine PAMOATE 50 MG CAPSULE (FP) PO PRN (17:03)
[2017-04-28] MEDS ORDERED: MAGNESIUM HYDROX 2400MG/30ML ORAL SUSPENSION 30 ML CUP PO PRN (17:03)
[2017-04-28] MEDS ORDERED: ACETAMINOPHEN 325 MG TABLET (FP) PO PRN (17:03)
[2017-04-28] MEDS ORDERED: MAGNESIUM CITRATE 300 ML BOTTLE PO PRN (17:03)
[2017-04-28] MEDS ORDERED: MENTHOL/PHENOL 1 EACH UD MM PRN (17:03)
[2017-04-28] MEDS ORDERED: guaiFENesin/D-METHORPHAN HB 10 ML UNIT-DOSE CUPS PO PRN (17:03)
[2017-04-28] MEDS ORDERED: guaiFENesin 200 MG/10 ML 10 ML UNIT-DOSE CUPS PO PRN (17:10)
[2017-04-28] MEDS: NICOTINE 14 MG/24 HOURS TOPICAL PATCH TD SCH (20:37)
[2017-04-28] MEDS ORDERED: chlordiazePOXIDE HCL 25 MG CAPSULE PO ONE (20:45)
[2017-04-28 22:16] LABS: URINE APPEARANCE SLCLOUDY; URINE BILIRUBIN NEGATIVE (NEGATIVE); URINE BLOOD 1+ (NEGATIVE); URINE COLOR YELLOW; URINE GLUCOSE (UA) NEGATIVE (NEGATIVE); URINE KETONE 1+ (NEGATIVE); URINE NITRITE POSITIVE (NEGATIVE); URINE UROBILINOGEN NEGATIVE mg/dL (0.2-1.0)
[2017-04-28 22:18] LABS: URINE LEUK ESTERASE 2+ (NEGATIVE); URINE PROTEIN 1+ (NEGATIVE)
[2017-04-28] MEDS: chlordiazePOXIDE HCL 25 MG CAPSULE PO SCH (22:25)
[2017-04-28] MEDS: THIAMINE HCL 100 MG TABLET (FP) PO SCH (22:25)
[2017-04-28 22:26] LABS: EPI CELLS RARE /HPF (FEW); URINE BACTERIA RARE /hpf (NONE SEEN); URINE HYALINE CAST 2 /lpf; URINE MUCUS RARE
[2017-04-28] MEDS: P-EPHED 60MG/TRIPROLIDI 2.5MG TABLET PO PRN (22:27)
[2017-04-28] MEDS: ASCORBIC ACID 500 MG TABLET (FP) PO SCH (23:10)
[2017-04-28] MEDS: PATIENT'S OWN MEDICATION (NON-FORMULARY) (Methenamine Hippurate 1 GM) PO SCH (23:58)
[2017-04-29] MEDS: chlordiazePOXIDE HCL 25 MG CAPSULE PO SCH ×4 (07:08→23:03)
[2017-04-29] MEDS: ASCORBIC ACID 500 MG TABLET (FP) PO SCH ×2 (11:03→23:04)
[2017-04-29] MEDS: PATIENT'S OWN MEDICATION (NON-FORMULARY) (Methenamine Hippurate 1 GM) PO SCH ×2 (11:03→23:04)
[2017-04-29] MEDS: NICOTINE 14 MG/24 HOURS TOPICAL PATCH TD SCH (11:04)
[2017-04-29] MEDS: PRENATAL VITAMINS W/ FOLIC ACID TABLET (FP) PO SCH (11:05)
--- NOTE | 2017-04-29 11:38 | EKG ---
Test Reason : Blood Pressure : / mmHG Vent. Rate : 077 BPM Atrial Rate : 077 BPM P-R Int : 148 ms QRS Dur : 082 ms QT Int : 402 ms P-R-T Axes : 074 030 027 degrees QTc Int : 454 ms NORMAL SINUS RHYTHM SEPTAL INFARCT , AGE UNDETERMINED ABNORMAL ECG WHEN COMPARED WITH ECG OF 19-MAR-2017 18:02, SEPTAL INFARCT IS NOW PRESENT Confirmed by MAGY SAHU MD ([id number]) on 04/29/2017 11:37:47 AM Referred By: Confirmed By:MAGY SAHU MD
--- NOTE | 2017-04-29 12:15 | PN ---
BHS CIWA - CIWA Score Nausea/Vomitin-No Nausea/No Vomiting Muscle Tremors: 4-Moderate,w/Arms Extend Anxiety: 3 Agitation: 3 Paroxysmal Sweats: 1-Minimal Palms Moist Orientation: 0-Oriented Tacttile Disturbances: 0-None Auditory Disturbances: 0-None Visual Disturbances: 0-None Headache: 0-None Present CIWA-Ar Total Score: 11 BHS Progress Note (SOAP) Subjective: tremor sweat anxiety restlessness Objective: 04/29/17 12:17 Vital Signs Temperature 97.5 F L 04/29/17 10:00 Pulse Rate 82 04/29/17 10:00 Respiratory Rate 18 04/29/17 10:00 Blood Pressure 115/77 04/29/17 10:00 O2 Sat by Pulse Oximetry (%) Laboratory Last Values Urine Color Yellow 04/28/17 21:00 Urine Appearance Slcloudy 04/28/17 21:00 Urine pH 5.0 (5.0-8.0) D 04/28/17 21:00 Ur Specific [place] 1.013 (1.001-1.035) 04/28/17 21:00 Urine Protein 1+ (NEGATIVE) H 04/28/17 21:00 Urine Glucose (UA) Negative (NEGATIVE) 04/28/17 21:00 Urine Ketones 1+ (NEGATIVE) H 04/28/17 21:00 Urine Blood 1+ (NEGATIVE) H 04/28/17 21:00 Urine Nitrite Positive (NEGATIVE) 04/28/17 21:00 Urine Bilirubin Negative (NEGATIVE) 04/28/17 21:00 Urine Urobilinogen Negative mg/dL (0.2-1.0) 04/28/17 21:00 Ur Leukocyte Esterase 2+ (NEGATIVE) H 04/28/17 21:00 Urine WBC (Auto) 13 /hpf (3-5) 04/28/17 21:00 Urine RBC (Auto) 2 /hpf (0-3) 04/28/17 21:00 Ur Epithelial Cells Rare /HPF (FEW) 04/28/17 21:00 Urine Bacteria Rare /hpf (NONE SEEN) 04/28/17 21:00 Hyaline Casts 2 /lpf 04/28/17 21:00 Urine Mucus Rare 04/28/17 21:00 lab noted Assessment: 04/29/17 12:19 withdrawal sx Plan: continue detox
[2017-04-29] MEDS: THIAMINE HCL 100 MG TABLET (FP) PO SCH (23:04)
[2017-04-30] MEDS: chlordiazePOXIDE HCL 25 MG CAPSULE PO SCH ×3 (06:00→17:41)
[2017-04-30 10:14] LABS: CHLORIDE 110 mmol/L (98-107); POTASSIUM 4.1 mmol/L (3.5-5.1); SODIUM 145 mmol/L (136-145)
[2017-04-30 10:14] LABS: HEMATOCRIT 44.8 % (35.4-49); HEMOGLOBIN 14.5 GM/dL (11.7-16.9); MCH 31.8 pg (25.7-33.7); MCHC 32.3 g/dl (32.0-35.9); MEAN CELL VOLUME 98.3 fl (80-96); MEAN PLT VOLUME 8.8 fl (7.5-11.1); PLATELET COUNT 210 K/MM3 (134-434); RBC 4.55 M/mm3 (4.00-5.60); RDW 14.5 % (11.9-15.9); WHITE BLOOD COUNT 3.7 K/mm3 (4.0-10.0)
[2017-04-30 10:24] LABS: ALBUMIN 3.2 g/dl (3.4-5.0); ALK PHOS 74 U/L (45-117); ANION GAP 4 (8-16); BILIRUBIN,TOTAL 0.8 mg/dL (0.2-1.0); BLOOD UREA NITROGEN 15 mg/dL (7-18); CALCIUM 8.8 mg/dL (8.5-10.1); CO2 31 mmol/L (21-32); CREATININE 1.1 mg/dL (0.7-1.3); GLUCOSE,RANDOM 67 mg/dL (74-106); SGOT/AST 29 U/L (15-37); SGPT/ALT 30 U/L (12-78); TOT PROT 6.6 g/dl (6.4-8.2)
--- NOTE | 2017-04-30 10:32 | PN ---
[facility] CIWA - CIWA Score Nausea/Vomitin-No Nausea/No Vomiting Muscle Tremors: 3 Anxiety: 3 Agitation: 3 Paroxysmal Sweats: 3 Orientation: 0-Oriented Tacttile Disturbances: 0-None Auditory Disturbances: 0-None Visual Disturbances: 0-None Headache: 1-Very Mild CIWA-Ar Total Score: 13 S Progress Note (SOAP) Subjective: sweats mild shakes interrupted sleep agitation body aches Objective: 04/30/17 10:29 Vital Signs Temperature 97.5 F L 04/30/17 06:09 Pulse Rate 60 04/30/17 06:09 Respiratory Rate 16 04/30/17 06:09 Blood Pressure 109/75 04/30/17 06:09 O2 Sat by Pulse Oximetry (%) Laboratory Tests 04/28/17 04/30/17 04/30/17 21:00 07:00 08:00 WBC 3.7 L D RBC 4.55 Hgb 14.5 Hct 44.8 MCV 98.3 H MCH 31.8 MCHC 32.3 RDW 14.5 Plt Count 210 MPV 8.8 D Sodium 145 Potassium 4.1 Chloride 110 H Carbon Dioxide 31 Anion Gap 4 L BUN 15 Creatinine 1.1 Creat Clearance w eGFR > 60 Random Glucose 67 L D Calcium 8.8 Total Bilirubin 0.8 AST 29 ALT 30 Alkaline Phosphatase 74 Total Protein 6.6 Albumin 3.2 L D Urine Color Yellow Urine Appearance Slcloudy Urine pH 5.0 D Ur Specific [place] 1.013 Urine Protein 1+ H Urine Glucose (UA) Negative Urine Ketones 1+ H Urine Blood 1+ H Urine Nitrite Positive Urine Bilirubin Negative Urine Urobilinogen Negative Ur Leukocyte Esterase 2+ H Urine WBC (Auto) 13 Urine RBC (Auto) 2 Ur Epithelial Cells Rare Urine Bacteria Rare Hyaline Casts 2 Urine Mucus Rare repeat u/a aaox3 lying in bed no acute distress Assessment: 04/30/17 10:29 withdrawal sx Plan: continue detox increase fluids u/a result pending
[2017-04-30] MEDS: PATIENT'S OWN MEDICATION (NON-FORMULARY) (Methenamine Hippurate 1 GM) PO SCH ×2 (10:55→22:46)
[2017-04-30] MEDS: ASCORBIC ACID 500 MG TABLET (FP) PO SCH ×2 (10:56→22:43)
[2017-04-30] MEDS: PRENATAL VITAMINS W/ FOLIC ACID TABLET (FP) PO SCH (10:56)
[2017-04-30] MEDS: NICOTINE 14 MG/24 HOURS TOPICAL PATCH TD SCH ×2 (10:58→17:39)
[2017-04-30] MEDS: chlordiazePOXIDE 5 MG CAPSULE PO SCH (22:43)
[2017-04-30] MEDS: THIAMINE HCL 100 MG TABLET (FP) PO SCH (22:43)
[2017-04-30] MEDS: P-EPHED 60MG/TRIPROLIDI 2.5MG TABLET PO PRN (22:48)
[2017-05-01] MEDS: chlordiazePOXIDE 5 MG CAPSULE PO SCH ×3 (05:16→18:07)
[2017-05-01 10:15] LABS: URINE APPEARANCE SLCLOUDY; URINE BILIRUBIN NEGATIVE (NEGATIVE); URINE BLOOD NEGATIVE (NEGATIVE); URINE COLOR YELLOW; URINE GLUCOSE (UA) NEGATIVE (NEGATIVE); URINE KETONE NEGATIVE (NEGATIVE); URINE NITRITE POSITIVE (NEGATIVE); URINE PROTEIN NEGATIVE (NEGATIVE); URINE UROBILINOGEN NEGATIVE mg/dL (0.2-1.0)
[2017-05-01 10:16] LABS: URINE LEUK ESTERASE 1+ (NEGATIVE)
[2017-05-01] MEDS: ASCORBIC ACID 500 MG TABLET (FP) PO SCH ×2 (10:34→23:35)
[2017-05-01] MEDS: PRENATAL VITAMINS W/ FOLIC ACID TABLET (FP) PO SCH (10:34)
--- NOTE | 2017-05-01 10:34 | PN ---
BHS Progress Note (SOAP) Subjective: irritable tired Objective: 05/01/17 10:33 Vital Signs Temperature 97.5 F L 05/01/17 10:00 Pulse Rate 68 05/01/17 10:00 Respiratory Rate 18 05/01/17 10:00 Blood Pressure 132/89 05/01/17 10:00 O2 Sat by Pulse Oximetry (%) aaox3 ambulating no acute distress Assessment: 05/01/17 10:33 withdrawal sx Plan: continue detox increase fluids d/c in am
[2017-05-01] MEDS: PATIENT'S OWN MEDICATION (NON-FORMULARY) (Methenamine Hippurate 1 GM) PO SCH ×2 (10:35→23:35)
[2017-05-01] MEDS: NICOTINE 14 MG/24 HOURS TOPICAL PATCH TD SCH (10:36)
[2017-05-01 10:46] LABS: EPI CELLS RARE /HPF (FEW); URINE BACTERIA MANY /hpf (NONE SEEN); URINE HYALINE CAST 1 /lpf
[2017-05-01] MEDS: chlordiazePOXIDE HCL 10 MG CAPSULE PO SCH (23:34)
[2017-05-01] MEDS: THIAMINE HCL 100 MG TABLET (FP) PO SCH (23:35)
[2017-05-02] MEDS: chlordiazePOXIDE HCL 10 MG CAPSULE PO SCH (06:00)
[2017-05-02 06:30] VITALS: BP 132/80; PULSE 63; TEMP 97.2
--- NOTE | 2017-05-02 08:54 | DS ---
[facility] Detox Discharge Summary Admission Date: 04/28/17 Discharge Date: 05/02/17 - History Present History: Alcohol Dependence, Cocaine Dependence, Sedative Dependence - Physical Exam Results Vital Signs: Vital Signs Temperature 97.2 F L 05/02/17 06:29 Pulse Rate 63 05/02/17 06:29 Respiratory Rate 16 05/02/17 06:29 Blood Pressure 132/80 05/02/17 06:29 O2 Sat by Pulse Oximetry (%) - Treatment Hospital Course: Detox Protocol Followed, Detoxed Safely, Responded well, Discharged Condition Good, Rehab Referral Accepted - Medication Discharge Medications: Ambulatory Orders Ascorbic Acid [Vitamin C -] 500 mg PO BID 03/19/17 Methenamine Hippurate [Hiprex [Nf] -] 1 gm PO BID 03/19/17 - Diagnosis (1) Alcohol dependence Current Visit: Yes Status: Chronic Qualifiers: Substance use status: in withdrawal Complication of substance-induced condition: uncomplicated Qualified Code(s): F10.230 - Alcohol dependence with withdrawal, uncomplicated (2) Suprapubic catheter Current Visit: Yes Status: Chronic (3) Cocaine dependence Current Visit: No Status: Acute Qualifiers: Substance use status: uncomplicated Qualified Code(s): F14.20 - Cocaine dependence, uncomplicated (4) Nicotine dependence Current Visit: No Status: Acute Qualifiers: Nicotine product type: cigarettes Substance use status: uncomplicated Qualified Code(s): F17.210 - Nicotine dependence, cigarettes, uncomplicated (5) Sedative, hypnotic or anxiolytic dependence, uncomplicated Current Visit: No Status: Acute (6) Blind right eye Current Visit: No Status: Chronic (7) Cannabis dependence Current Visit: No Status: Chronic - AMA Did Patient Leave Against Medical Advice: No
[2017-05-02] MEDS: PRENATAL VITAMINS W/ FOLIC ACID TABLET (FP) PO SCH (09:17)
[2017-05-02] MEDS: ASCORBIC ACID 500 MG TABLET (FP) PO SCH (09:17)
[2017-05-02] MEDS: PATIENT'S OWN MEDICATION (NON-FORMULARY) (Methenamine Hippurate 1 GM) PO SCH (09:18)
== END 2017-05-02 09:20 | disposition home or self-care (01) | DRG 774 ==
LOC: YASAS 13:57 → Y6N 18:21
PROVIDERS: ADMIT Internal Medicine; ATTEND Internal Medicine
PROC: HZ2ZZZZ Detoxification Services for Substance Abuse Treatment (ICD-10-PCS; principal; 2017-04-28)
DX: F13.230 Sedative, hypnotic or anxiolytic dependence with withdrawal, uncomplicated (principal); F10.230 Alcohol dependence with withdrawal, uncomplicated; F14.20 Cocaine dependence, uncomplicated; F12.20 Cannabis dependence, uncomplicated; F17.210 Nicotine dependence, cigarettes, uncomplicated; H54.40 Blindness, one eye, unspecified eye; Z93.59 Other cystostomy status
CPT/HCPCS: 36415; 80053; 81003; 81015; 85027; 86593; 86803; 87389; 93005; 93010

== ENCOUNTER 2017-06-01 09:41 | Inpatient (IN) | payer OTHER ==
[2017-06-01 10:12] VITALS: BMI 19.9
--- NOTE | 2017-06-01 12:18 | HP ---
CIWA Score - CIWA Score Nausea/Vomitin Muscle Tremors: 3 Anxiety: 3 Agitation: 3 Paroxysmal Sweats: 2 Orientation: 0-Oriented Tacttile Disturbances: 2-Mild Itch/Numbness/Burn Auditory Disturbances: 2-Mild Harshness/Frighten Visual Disturbances: 1-Very Mild Sensitivity Headache: 2-Mild CIWA-Ar Total Score: 21 Admission ROS BHS - HPI Chief Complaint: I AM HERE FOR DETOX FROM ALCOHOL,COCAINE,XANAX Allergies/Adverse Reactions: Allergies Allergy/AdvReac Type Severity Reaction Status Date / Time No Known Allergies Allergy Verified 06/01/17 11:01 History of Present Illness: THIS 56 YEARS OLD MALE WITH ALCOHOL,COCAINE,XANAX DEPENDENCE,SEEKING DETOX, WITHDRAWAL SYMPTOM,LAST DETOX 04/23/17 TO 05/02/17 NICOTINE DEPENDENCE WEIGHT LOSS NO SIGNIFICANT PERIOD OF SOBRIETY Exam Limitations: No Limitations - Ebola screening Have you traveled outside of the country in the last 21 days: No (N) Have you had contact with anyone from an Ebola affected area: No Have you been sick,other than usual withdrawal symptoms: No Do you have a fever: No - Review of Systems Constitutional: Chills, Loss of Appetite, Malaise, Night Sweats, Changes in sleep, Weakness, Unintentional Wgt. Loss EENT: reports: Tearing, Nose Congestion Respiratory: reports: No Symptoms reported Cardiac: reports: No Symptoms Reported GI: reports: Diarrhea, Nausea, Vomiting, Abdominal cramping : reports: No Symptoms Reported Musculoskeletal: reports: Back Pain, Muscle Pain Integumentary: reports: Dryness Neuro: reports: Headache, Tremors Endocrine: reports: No Symptoms Reported Hematology: reports: No Symptoms Reported Psychiatric: reports: No Sypmtoms Reported Patient History - Patient Medical History Hx Anemia: No Hx Asthma: No Hx Chronic Obstructive Pulmonary Disease (COPD): No Hx Cancer: No Hx Cardiac Disorders: No Hx Congestive Heart Failure: No Hx Hypertension: No Hx Hypercholesterolemia: No Hx Pacemaker: No HX Cerebrovascular Accident: No Hx Seizures: No Hx Dementia: No Hx Diabetes: No Hx Gastrointestinal Disorders: No Hx Liver Disease: No Hx Genitourinary Disorders: No Hx Sexually Transmitted Disorders: No Hx Renal Disease (ESRD): No Hx Thyroid Disease: No Hx Human Immunodeficiency Virus (HIV): No (LAST 02/06 NEGATIVE) Hx Hepatitis C: No Hx Depression: No Hx Suicide Attempt: No Hx Bipolar Disorder: No Hx Schizophrenia: No Other Medical History: NO SUICIDAL,NO HOMICIDAL - Patient Surgical History Past Surgical History: Yes Hx Neurologic Surgery: No Hx Cataract Extraction: No Hx Cardiac Surgery: No Hx Lung Surgery: No Hx Breast Surgery: No Hx Breast Biopsy: No Hx Abdominal Surgery: No Hx Appendectomy: No Hx Cholecystectomy: No Hx Genitourinary Surgery: Yes ( suprapubic catheter insitu) Hx Section: No Hx Orthopedic Surgery: No Hx Hysterectomy: No Other Surgical History: detached retina, left eye Anesthesia Reaction: No - PPD History Previous Implant?: Yes Documented Results: Negative w/proof Implanted On Prior [facility] Admission?: Yes Date: 08/04/16 Results: 0 mm PPD to be Administered?: No - Smoking Cessation Smoking history: Current every day smoker Have you smoked in the past 12 months: Yes Aproximately how many cigarettes per day: 5 Cigars Per Day: 0 Hx Chewing Tobacco Use: No Initiated information on smoking cessation: Yes 'Breaking Loose' booklet given: 06/01/17 - Substances Abused Crack Route: Smoking Frequency: 1-2 times per week Amount used: $20 Age of first use: 49 Date of Last Use: 05/31/17 Alcohol-vodka/beer Route: Oral Frequency: Daily Amount used: 2 pts./3 (40 oz.) Age of first use: 24 Date of Last Use: 06/01/17 Xanax Route: Oral Frequency: 1-2 times per week Amount used: 2 mg. Age of first use: 54 Date of Last Use: 05/29/17 Family Disease History - Family Disease History Family Disease History: Heart Disease: Mother (htn,), Other: Father ( alcohol,), Brother (twelve - one cancer, one copd, one cancer, etoh), Sister (four living, two (overdose, )), Son (2 - healthy), Daughter (2 - healthy) Admission Physical Exam S - Vital Signs Vital Signs: Vital Signs - 24 hr 06/01/17 10:10 Temperature 97.5 F L Pulse Rate 77 Respiratory 18 Rate Blood Pressure 152/93 - Physical General Appearance: Yes: Moderate Distress, Tremorous (POOR DENTAL HYGIENE), Irritable, Sweating, Anxious HEENTM: Yes: Normal ENT Inspection, SHAY, Pharynx Normal Respiratory: Yes: Lungs Clear, Normal Breath Sounds, No Respiratory Distress Neck: Yes: Supple, Trachea in good position, Thyroid tenderness Breast: Yes: Within Normal Limits Cardiology: Yes: Within Normal Limits, Regular Rhythm, Regular Rate, S1, S2 Abdominal: Yes: Normal Bowel Sounds, Non Tender, Flat, Soft Genitourinary: Yes: Within Normal Limits Back: Yes: Muscle Spasm Musculoskeletal: Yes: Back pain Extremities: Yes: Tremors Neurological: Yes: home health care respiratory therapist II-XII NML intact, Fully Oriented, Alert, Motor Strength 5/5 Integumentary: Yes: Dry Lymphatic: Yes: Within Normal Limits - Diagnostic (1) Alcohol dependence with uncomplicated withdrawal Current Visit: Yes Status: Acute (2) Cocaine dependence Current Visit: Yes Status: Acute Qualifiers: Substance use status: uncomplicated Qualified Code(s): F14.20 - Cocaine dependence, uncomplicated (3) Nicotine dependence Current Visit: Yes Status: Chronic Qualifiers: Nicotine product type: cigarettes Substance use status: uncomplicated Qualified Code(s): F17.210 - Nicotine dependence, cigarettes, uncomplicated (4) Sedative, hypnotic or anxiolytic dependence, uncomplicated Current Visit: Yes Status: Acute (5) 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
[2017-06-01] MEDS ORDERED: MAGNESIUM HYDROX 2400MG/30ML ORAL SUSPENSION 30 ML CUP PO PRN (12:24)
[2017-06-01] MEDS ORDERED: NICOTINE POLACRILEX 2 MG GUM BUC PRN (12:24)
[2017-06-01] MEDS ORDERED: MENTHOL/PHENOL 1 EACH UD MM PRN (12:24)
[2017-06-01] MEDS ORDERED: chlordiazePOXIDE HCL 25 MG CAPSULE PO PRN (12:24)
[2017-06-01] MEDS ORDERED: hydrOXYzine PAMOATE 25 MG CAPSULE (FP) PO PRN (12:24)
[2017-06-01] MEDS ORDERED: MAG HYDROX/AL HYDROX/SIMETH 30 ML UNIT-DOSE CUP PO PRN (12:24)
[2017-06-01] MEDS ORDERED: LOPERAMIDE HCL 2 MG CAPSULE PO PRN (12:24)
[2017-06-01] MEDS ORDERED: guaiFENesin/D-METHORPHAN HB 10 ML UNIT-DOSE CUPS PO PRN (12:24)
[2017-06-01] MEDS ORDERED: ACETAMINOPHEN 325 MG TABLET (FP) PO PRN (12:24)
[2017-06-01] MEDS ORDERED: IBUPROFEN 400 MG TABLET (FP) PO PRN (12:24)
[2017-06-01] MEDS ORDERED: MAGNESIUM CITRATE 300 ML BOTTLE PO PRN (12:24)
[2017-06-01] MEDS ORDERED: P-EPHED 60MG/TRIPROLIDI 2.5MG TABLET PO PRN (12:24)
[2017-06-01] MEDS ORDERED: chlordiazePOXIDE HCL 25 MG CAPSULE PO ONE (12:40)
[2017-06-01] MEDS: NICOTINE 21 MG/24 HOURS TOPICAL PATCH TD SCH (13:42)
[2017-06-01] MEDS: chlordiazePOXIDE HCL 25 MG CAPSULE PO SCH ×2 (17:28→22:48)
[2017-06-01 22:30] LABS: URINE APPEARANCE SLCLOUDY; URINE BILIRUBIN NEGATIVE (NEGATIVE); URINE BLOOD NEGATIVE (NEGATIVE); URINE COLOR YELLOW; URINE GLUCOSE (UA) NEGATIVE (NEGATIVE); URINE KETONE TRACE (NEGATIVE); URINE NITRITE POSITIVE (NEGATIVE); URINE PROTEIN NEGATIVE (NEGATIVE); URINE UROBILINOGEN NEGATIVE mg/dL (0.2-1.0)
[2017-06-01 22:37] LABS: URINE LEUK ESTERASE 3+ (NEGATIVE)
[2017-06-01] MEDS: THIAMINE HCL 100 MG TABLET (FP) PO SCH (22:48)
[2017-06-01 22:54] LABS: EPI CELLS RARE /HPF (FEW); URINE MUCUS RARE
[2017-06-02] MEDS: chlordiazePOXIDE HCL 25 MG CAPSULE PO SCH ×4 (05:06→22:04)
[2017-06-02 10:24] LABS: HEMATOCRIT 42.7 % (35.4-49); HEMOGLOBIN 13.9 GM/dL (11.7-16.9); MCH 31.3 pg (25.7-33.7); MCHC 32.5 g/dl (32.0-35.9); MEAN CELL VOLUME 96.4 fl (80-96); MEAN PLT VOLUME 10.2 fl (7.5-11.1); PLATELET COUNT 239 K/MM3 (134-434); RBC 4.43 M/mm3 (4.00-5.60); RDW 14.2 % (11.9-15.9); WHITE BLOOD COUNT 6.5 K/mm3 (4.0-10.0)
[2017-06-02] MEDS: PRENATAL VITAMINS W/ FOLIC ACID TABLET (FP) PO SCH (10:35)
[2017-06-02] MEDS: NICOTINE 21 MG/24 HOURS TOPICAL PATCH TD SCH (10:35)
[2017-06-02 10:36] LABS: ALBUMIN 4.3 g/dl (3.4-5.0); ANION GAP 7 (8-16); BLOOD UREA NITROGEN 19 mg/dL (7-18); CALCIUM 8.9 mg/dL (8.5-10.1); CHLORIDE 107 mmol/L (98-107); CO2 28 mmol/L (21-32); GLUCOSE,RANDOM 99 mg/dL (74-106); SODIUM 142 mmol/L (136-145)
[2017-06-02 10:41] LABS: ALK PHOS 90 U/L (45-117); BILIRUBIN,TOTAL 0.9 mg/dL (0.2-1.0); CREATININE 1.3 mg/dL (0.7-1.3); SGOT/AST 30 U/L (15-37); SGPT/ALT 29 U/L (12-78); TOT PROT 7.4 g/dl (6.4-8.2)
--- NOTE | 2017-06-02 15:42 | PN ---
S CIWA - CIWA Score Nausea/Vomitin Muscle Tremors: 4-Moderate,w/Arms Extend Anxiety: 4-Mod. Anxious/Guarded Agitation: 4-Moderately Restless Paroxysmal Sweats: 3 Orientation: 0-Oriented Tacttile Disturbances: 0-None Auditory Disturbances: 0-None Visual Disturbances: 0-None Headache: 0-None Present CIWA-Ar Total Score: 18 BHS Progress Note (SOAP) Subjective: Chills, tremor, interrupted sleep Objective: 06/02/17 15:36 Last Vital Signs Temp Pulse Resp BP Pulse Ox 97.7 F 71 20 96/55 06/02/17 13:51 06/02/17 13:51 06/02/17 13:51 06/02/17 13:51 Laboratory Tests 06/01/17 06/01/17 06/02/17 11:45 20:17 06:10 WBC 6.5 D RBC 4.43 Hgb 13.9 Hct 42.7 MCV 96.4 H MCH 31.3 MCHC 32.5 RDW 14.2 Plt Count 239 MPV 10.2 D Sodium Potassium Chloride Carbon Dioxide Anion Gap BUN Creatinine Creat Clearance w eGFR Random Glucose Calcium Total Bilirubin AST ALT Alkaline Phosphatase Total Protein Albumin Urine Color Yellow Urine Appearance Slcloudy Urine pH 5.0 Ur Specific [place] 1.013 Urine Protein Negative Urine Glucose (UA) Negative Urine Ketones Trace H Urine Blood Negative Urine Nitrite Positive Urine Bilirubin Negative Urine Urobilinogen Negative Ur Leukocyte Esterase 3+ H D Urine WBC (Auto) 33 Urine RBC (Auto) 1 Ur Epithelial Cells Rare Urine Mucus Rare RPR Titer HIV 1&2 Antibody Screen Negative HIV P24 Antigen Negative 06/02/17 06/02/17 06:10 06:10 WBC RBC Hgb Hct MCV MCH MCHC RDW Plt Count MPV Sodium 142 Potassium 4.0 Chloride 107 Carbon Dioxide 28 Anion Gap 7 L BUN 19 H D Creatinine 1.3 Creat Clearance w eGFR 57.53 Random Glucose 99 D Calcium 8.9 Total Bilirubin 0.9 AST 30 ALT 29 Alkaline Phosphatase 90 D Total Protein 7.4 Albumin 4.3 D Urine Color Urine Appearance Urine pH Ur Specific [place] Urine Protein Urine Glucose (UA) Urine Ketones Urine Blood Urine Nitrite Urine Bilirubin Urine Urobilinogen Ur Leukocyte Esterase Urine WBC (Auto) Urine RBC (Auto) Ur Epithelial Cells Urine Mucus RPR Titer Nonreactive HIV 1&2 Antibody Screen HIV P24 Antigen Labs noted; bun 19, serum cr 1.3, UA: + nitrite Assessment: 06/02/17 15:38 Withdrawal symptoms Noted with prerenal azotemia and UTI Plan: Continue detox Prerenal azotemia: encouraged to drink more water, repeat bmp UTI, acute: encouraged to drink lots of water, send urine cx, start ciprofloxacin 500 mg PO q12hr x 10 days, follow up with PCP post discharge for further evaluation
--- NOTE | 2017-06-02 16:00 | EKG ---
Test Reason : Blood Pressure : / mmHG Vent. Rate : 065 BPM Atrial Rate : 065 BPM P-R Int : 172 ms QRS Dur : 076 ms QT Int : 406 ms P-R-T Axes : 079 063 055 degrees QTc Int : 422 ms NORMAL SINUS RHYTHM MINIMAL VOLTAGE CRITERIA FOR LVH, MAY BE NORMAL VARIANT POSSIBLE ANTEROSEPTAL INFARCT (CITED ON OR BEFORE 20-JAN-2017) ABNORMAL ECG WHEN COMPARED WITH ECG OF 28-APR-2017 19:45, NONSPECIFIC T WAVE ABNORMALITY NO LONGER EVIDENT IN INFERIOR LEADS NONSPECIFIC T WAVE ABNORMALITY NO LONGER EVIDENT IN LATERAL LEADS Confirmed by ROHAN DIAZ MD ([id number]) on 06/02/2017 4:00:11 PM Referred By: Confirmed By:ROHAN DIAZ MD
[2017-06-02] MEDS: THIAMINE HCL 100 MG TABLET (FP) PO SCH (22:04)
[2017-06-03] MEDS: chlordiazePOXIDE HCL 25 MG CAPSULE PO SCH ×2 (06:57→10:35)
[2017-06-03 10:22] LABS: ANION GAP 5 (8-16); BLOOD UREA NITROGEN 13 mg/dL (7-18); CALCIUM 8.2 mg/dL (8.5-10.1); CHLORIDE 109 mmol/L (98-107); CO2 29 mmol/L (21-32); GLUCOSE,RANDOM 82 mg/dL (74-106); POTASSIUM 4.2 mmol/L (3.5-5.1); SODIUM 143 mmol/L (136-145)
[2017-06-03 10:23] LABS: CREATININE 1.2 mg/dL (0.7-1.3)
[2017-06-03] MEDS: PRENATAL VITAMINS W/ FOLIC ACID TABLET (FP) PO SCH (10:35)
[2017-06-03] MEDS: NICOTINE 21 MG/24 HOURS TOPICAL PATCH TD SCH (11:12)
[2017-06-03] MEDS: chlordiazePOXIDE 5 MG CAPSULE PO SCH ×2 (18:16→22:02)
--- NOTE | 2017-06-03 21:19 | PN ---
[facility] CIWA - CIWA Score Nausea/Vomitin Muscle Tremors: 3 Anxiety: 3 Agitation: 3 Paroxysmal Sweats: 3 Orientation: 1-Uncertain about Date Tacttile Disturbances: 0-None Auditory Disturbances: 0-None Visual Disturbances: 0-None Headache: 0-None Present CIWA-Ar Total Score: 15 S COWS - Scale Resting Pulse: 0= IN 80 or Below Sweatin=Flushed/Facial Moisture Restless Observation: 1= Difficult to Sit Still Pupil Size: 0= Normal to Room Light Bone or Joint Aches: 1= Mild Discomfort Runny Nose/ Eye Tearin= Runny Nose/Eyes GI Upset > 30mins: 2= Nausea/Diarrhea Tremor Observation of Outstretched Hands: 2= Slight Tremor Visible Yawning Observation: 0= None Anxiety or Irritability: 2=Irritable/Anxious Goose Flesh Skin: 0=Smooth Skin COWS Score: 12 [facility] Progress Note (SOAP) Subjective: sweats anxious Objective: 06/03/17 21:18 A & O x 3 suprapubic pain Laboratory Last Values WBC 6.5 K/mm3 (4.0-10.0) D 06/02/17 06:10 RBC 4.43 M/mm3 (4.00-5.60) 06/02/17 06:10 Hgb 13.9 GM/dL (11.7-16.9) 06/02/17 06:10 Hct 42.7 % (35.4-49) 06/02/17 06:10 MCV 96.4 fl (80-96) H 06/02/17 06:10 MCH 31.3 pg (25.7-33.7) 06/02/17 06:10 MCHC 32.5 g/dl (32.0-35.9) 06/02/17 06:10 RDW 14.2 % (11.9-15.9) 06/02/17 06:10 Plt Count 239 K/MM3 (134-434) 06/02/17 06:10 MPV 10.2 fl (7.5-11.1) D 06/02/17 06:10 Sodium 143 mmol/L (136-145) 06/03/17 08:00 Potassium 4.2 mmol/L (3.5-5.1) 06/03/17 08:00 Chloride 109 mmol/L (98-107) H 06/03/17 08:00 Carbon Dioxide 29 mmol/L (21-32) 06/03/17 08:00 Anion Gap 5 (8-16) L 06/03/17 08:00 BUN 13 mg/dL (7-18) D 06/03/17 08:00 Creatinine 1.2 mg/dL (0.7-1.3) 06/03/17 08:00 Creat Clearance w eGFR 57.53 (>60) 06/02/17 06:10 Random Glucose 82 mg/dL (74-106) 06/03/17 08:00 Calcium 8.2 mg/dL (8.5-10.1) L 06/03/17 08:00 Total Bilirubin 0.9 mg/dL (0.2-1.0) 06/02/17 06:10 AST 30 U/L (15-37) 06/02/17 06:10 ALT 29 U/L (12-78) 06/02/17 06:10 Alkaline Phosphatase 90 U/L (45-117) D 06/02/17 06:10 Total Protein 7.4 g/dl (6.4-8.2) 06/02/17 06:10 Albumin 4.3 g/dl (3.4-5.0) D 06/02/17 06:10 Urine Color Yellow 06/01/17 20:17 Urine Appearance Slcloudy 06/01/17 20:17 Urine pH 5.0 (5.0-8.0) 06/01/17 20:17 Ur Specific [place] 1.013 (1.001-1.035) 06/01/17 20:17 Urine Protein Negative (NEGATIVE) 06/01/17 20:17 Urine Glucose (UA) Negative (NEGATIVE) 06/01/17 20:17 Urine Ketones Trace (NEGATIVE) H 06/01/17 20:17 Urine Blood Negative (NEGATIVE) 06/01/17 20:17 Urine Nitrite Positive (NEGATIVE) 06/01/17 20:17 Urine Bilirubin Negative (NEGATIVE) 06/01/17 20:17 Urine Urobilinogen Negative mg/dL (0.2-1.0) 06/01/17 20:17 Ur Leukocyte Esterase 3+ (NEGATIVE) H D 06/01/17 20:17 Urine WBC (Auto) 33 /hpf (3-5) 06/01/17 20:17 Urine RBC (Auto) 1 /hpf (0-3) 06/01/17 20:17 Ur Epithelial Cells Rare /HPF (FEW) 06/01/17 20:17 Urine Mucus Rare 06/01/17 20:17 RPR Titer Nonreactive (NONREACTIVE) 06/02/17 06:10 HIV 1&2 Antibody Screen Negative 06/01/17 11:45 HIV P24 Antigen Negative 06/01/17 11:45 labs noted Assessment: 06/03/17 21:19 withdrawal sx Plan: continue detox
[2017-06-03] MEDS: THIAMINE HCL 100 MG TABLET (FP) PO SCH (22:02)
[2017-06-04] MEDS: chlordiazePOXIDE 5 MG CAPSULE PO SCH ×2 (05:56→10:19)
[2017-06-04] MEDS: PRENATAL VITAMINS W/ FOLIC ACID TABLET (FP) PO SCH (10:19)
[2017-06-04] MEDS: NICOTINE 21 MG/24 HOURS TOPICAL PATCH TD SCH (10:19)
--- NOTE | 2017-06-04 13:22 | PN ---
BHS Progress Note (SOAP) Subjective: sleepy shakes Objective: 06/04/17 13:19 A & O x 3 Vital Signs Temperature 96.9 F L 06/04/17 12:12 Pulse Rate 73 06/04/17 12:12 Respiratory Rate 18 06/04/17 12:12 Blood Pressure 105/73 06/04/17 12:12 O2 Sat by Pulse Oximetry (%) Microbiology 06/02/17 09:57 Urine Culture - Preliminary Urine - Urine Clean Catch Lactose Fermenting Neg Bacilli Staphylococcus Latex Coag Pos noted Assessment: 06/04/17 13:20 withdrawal sx UTI s/p gram pos staph Plan: continue detox Increase hydration Augmentin for UTI
[2017-06-04] MEDS ORDERED: AMOX TR/POT CLAV 875MG/125MG TABLETS (FP) PO ONE (14:00)
[2017-06-04] MEDS: AMOX TR/POT CLAV 875MG/125MG TABLETS (FP) PO SCH (17:32)
[2017-06-04] MEDS: chlordiazePOXIDE HCL 10 MG CAPSULE PO SCH ×2 (17:32→22:16)
[2017-06-04] MEDS: THIAMINE HCL 100 MG TABLET (FP) PO SCH (21:34)
[2017-06-05] MEDS: chlordiazePOXIDE HCL 10 MG CAPSULE PO SCH (06:10)
[2017-06-05] MEDS: AMOX TR/POT CLAV 875MG/125MG TABLETS (FP) PO SCH (07:04)
[2017-06-05] MEDS: PRENATAL VITAMINS W/ FOLIC ACID TABLET (FP) PO SCH (09:23)
[2017-06-05] MEDS: NICOTINE 21 MG/24 HOURS TOPICAL PATCH TD SCH (09:23)
[2017-06-05 09:53] VITALS: BP 115/76; PULSE 86; TEMP 95.7
--- NOTE | 2017-06-05 13:20 | DS ---
[facility] Detox Discharge Summary Admission Date: 06/01/17 Discharge Date: 06/05/17 - History Present History: Alcohol Dependence, Cocaine Dependence, Sedative Dependence Additional Comments: PATIENT GOING HOME FOR TIME BEING, REPORTS THAT HE WILL PURSUE REHAB ADMISSION AT [facility]) ON HIS OWN IN NEAR FUTURE. PRESCRIPTION FOR LEVAQUIN (2 WEEKS) SENT TO PATIENT'S PHARMACY ([place], [place], [place] PATIENT REPORTS THAT HE HAS BEEN TREATED FOR UTI'S IN PAST WITH THIS ANTIBIOTIC. PATIENT ADVISED TO FOLLOW-UP WITH [facility] ([place], [place] , [place] SOON POSSIBLE AFTER DISCHARGE FROM DETOX FOR GENERAL MEDICAL ASSESSMENT AND FOR HISTORY OF SUPRAPUBIC CATHETER PLACEMENT. REPORT FOR URINE CULTURE ANTIBIOTIC RESISTANCE DRAWN WHILE PATIENT ADMITTED FOR DETOX MADE AVAILABLE AFTER PATIENT ALREADY LEFT BUILDING AFTER DISCHARGE. PATIENT ADVISED TO GO IMMEDIATELY TO ER AT [facility] ([place], [place] NEAR WHERE HE LIVES) SHOULD ANY UNUSUAL SYMPTOMS, INCLUDING URINARY SYMPTOMS, DEVELOP AT ANY TIME. PATIENT WAS DISCHARGED FROM DETOX UNIT IN STABLE MEDICAL CONDITION. Pertinent Past History: History of Suprapubic Catheter, Blind in Right Eye, Nicotine Dependence, Weight Loss. - Physical Exam Results Vital Signs: Vital Signs Temperature 95.7 F L 06/05/17 09:52 Pulse Rate 86 06/05/17 09:52 Respiratory Rate 18 06/05/17 09:52 Blood Pressure 115/76 06/05/17 09:52 O2 Sat by Pulse Oximetry (%) Pertinent Admission Physical Exam Findings: WITHDRAWAL SYMPTOMS. Vital Signs Temperature 95.7 F L 06/05/17 09:52 Pulse Rate 86 06/05/17 09:52 Respiratory Rate 18 06/05/17 09:52 Blood Pressure 115/76 06/05/17 09:52 O2 Sat by Pulse Oximetry (%) Laboratory Tests 06/01/17 06/01/17 06/02/17 11:45 20:17 06:10 WBC 6.5 D RBC 4.43 Hgb 13.9 Hct 42.7 MCV 96.4 H MCH 31.3 MCHC 32.5 RDW 14.2 Plt Count 239 MPV 10.2 D Sodium Potassium Chloride Carbon Dioxide Anion Gap BUN Creatinine Creat Clearance w eGFR Random Glucose Calcium Total Bilirubin AST ALT Alkaline Phosphatase Total Protein Albumin Urine Color Yellow Urine Appearance Slcloudy Urine pH 5.0 Ur Specific [place] 1.013 Urine Protein Negative Urine Glucose (UA) Negative Urine Ketones Trace H Urine Blood Negative Urine Nitrite Positive Urine Bilirubin Negative Urine Urobilinogen Negative Ur Leukocyte Esterase 3+ H D Urine WBC (Auto) 33 Urine RBC (Auto) 1 Ur Epithelial Cells Rare Urine Mucus Rare RPR Titer HIV 1&2 Antibody Screen Negative HIV P24 Antigen Negative 06/02/17 06/02/17 06/03/17 06:10 06:10 08:00 WBC RBC Hgb Hct MCV MCH MCHC RDW Plt Count MPV Sodium 142 143 Potassium 4.0 4.2 Chloride 107 109 H Carbon Dioxide 28 29 Anion Gap 7 L 5 L BUN 19 H D 13 D Creatinine 1.3 1.2 Creat Clearance w eGFR 57.53 Random Glucose 99 D 82 Calcium 8.9 8.2 L Total Bilirubin 0.9 AST 30 ALT 29 Alkaline Phosphatase 90 D Total Protein 7.4 Albumin 4.3 D Urine Color Urine Appearance Urine pH Ur Specific [place] Urine Protein Urine Glucose (UA) Urine Ketones Urine Blood Urine Nitrite Urine Bilirubin Urine Urobilinogen Ur Leukocyte Esterase Urine WBC (Auto) Urine RBC (Auto) Ur Epithelial Cells Urine Mucus RPR Titer Nonreactive HIV 1&2 Antibody Screen HIV P24 Antigen LABS NOTED. - Treatment Hospital Course: Detox Protocol Followed, Detoxed Safely, Responded well, Discharged Condition Good, Rehab Referral Accepted Patient has Accepted a Rehab Referral to: [facility] ([place], [place] - Medication Discharge Medications: Ambulatory Orders levoFLOXacin [Levaquin -] 500 mg PO DAILY@0600 #14 tablet MDD 1 06/05/17 - Diagnosis (1) Alcohol dependence with uncomplicated withdrawal Status: Acute (2) Cocaine dependence Status: Acute Qualifiers: Substance use status: uncomplicated Qualified Code(s): F14.20 - Cocaine dependence, uncomplicated (3) Sedative, hypnotic or anxiolytic dependence, uncomplicated Status: Acute (4) UTI (urinary tract infection) Status: Acute Qualifiers: Urinary tract infection type: catheter-associated UTI Indwelling urinary catheter type: unspecified Encounter type: initial encounter Qualified Code( s): T83.511A - Infection and inflammatory reaction due to indwelling urethral catheter, initial encounter; N39.0 - Urinary tract infection, site not specified ; N39.0 - Urinary tract infection, site not specified (5) Blind right eye Status: Chronic (6) Nicotine dependence Status: Chronic Qualifiers: Nicotine product type: cigarettes Substance use status: uncomplicated Qualified Code(s): F17.210 - Nicotine dependence, cigarettes, uncomplicated (7) Suprapubic catheter Status: Chronic (8) Weight loss Status: Acute - AMA Did Patient Leave Against Medical Advice: No
== END 2017-06-05 09:52 | disposition home or self-care (01) | DRG 774 ==
LOC: YASAS 09:41 → Y3N 12:24
PROVIDERS: ADMIT Internal Medicine; ATTEND Internal Medicine
PROC: HZ2ZZZZ Detoxification Services for Substance Abuse Treatment (ICD-10-PCS; principal; 2017-06-01)
DX: F10.230 Alcohol dependence with withdrawal, uncomplicated (principal); F13.230 Sedative, hypnotic or anxiolytic dependence with withdrawal, uncomplicated; F14.20 Cocaine dependence, uncomplicated; F17.210 Nicotine dependence, cigarettes, uncomplicated; K08.9 Disorder of teeth and supporting structures, unspecified; H54.40 Blindness, one eye, unspecified eye; R79.89 Other specified abnormal findings of blood chemistry; Z87.898 Personal history of other specified conditions
CPT/HCPCS: 36415; 80048; 80053; 81003; 81015; 85027; 86593; 87086; 87186; 87389; 93005; 93010

== ENCOUNTER 2017-07-15 10:03 | Inpatient (IN) | payer OTHER ==
[2017-07-15 10:46] VITALS: BMI 20.7
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
[2017-07-15] MEDS ORDERED: chlordiazePOXIDE HCL 25 MG CAPSULE PO PRN (12:31)
[2017-07-15] MEDS ORDERED: MAGNESIUM HYDROX 2400MG/30ML ORAL SUSPENSION 30 ML CUP PO PRN (12:31)
[2017-07-15] MEDS ORDERED: IBUPROFEN 400 MG TABLET (FP) PO PRN (12:31)
[2017-07-15] MEDS ORDERED: guaiFENesin/D-METHORPHAN HB 10 ML UNIT-DOSE CUPS PO PRN (12:31)
[2017-07-15] MEDS ORDERED: LOPERAMIDE HCL 2 MG CAPSULE PO PRN (12:31)
[2017-07-15] MEDS ORDERED: MAG HYDROX/AL HYDROX/SIMETH 30 ML UNIT-DOSE CUP PO PRN (12:31)
[2017-07-15] MEDS ORDERED: MENTHOL/PHENOL 1 EACH UD MM PRN (12:31)
[2017-07-15] MEDS ORDERED: hydrOXYzine PAMOATE 50 MG CAPSULE (FP) PO PRN (12:31)
[2017-07-15] MEDS ORDERED: NICOTINE POLACRILEX 2 MG GUM BC PRN (12:31)
[2017-07-15] MEDS ORDERED: ACETAMINOPHEN 325 MG TABLET (FP) PO PRN (12:31)
[2017-07-15] MEDS ORDERED: P-EPHED 60MG/TRIPROLIDI 2.5MG TABLET PO PRN (12:31)
[2017-07-15] MEDS ORDERED: MAGNESIUM CITRATE 300 ML BOTTLE PO PRN (12:31)
[2017-07-15] MEDS: NICOTINE 21 MG/24 HOURS TOPICAL PATCH TD SCH (13:38)
[2017-07-15 17:21] LABS: URINE APPEARANCE CLOUDY; URINE BILIRUBIN NEGATIVE (<2.0 mg/dL); URINE BLOOD NEGATIVE (NEGATIVE); URINE COLOR YELLOW; URINE GLUCOSE (UA) NEGATIVE (NEGATIVE); URINE KETONE NEGATIVE (NEGATIVE); URINE NITRITE NEGATIVE (NEGATIVE)
[2017-07-15 17:22] LABS: URINE LEUK ESTERASE 3+ (NEGATIVE); URINE PROTEIN 1+ (NEGATIVE)
[2017-07-15] MEDS: chlordiazePOXIDE HCL 25 MG CAPSULE PO SCH ×2 (17:35→22:32)
[2017-07-15 17:42] LABS: EPI CELLS RARE /HPF (FEW); URINE BACTERIA MANY /hpf (NONE SEEN); URINE HYALINE CAST 4 /lpf; URINE MUCUS FEW
[2017-07-15] MEDS: THIAMINE HCL 100 MG TABLET (FP) PO SCH (22:32)
[2017-07-15] MEDS: MELATONIN 5 MG TABLETS PO SCH (22:32)
[2017-07-16] MEDS: chlordiazePOXIDE HCL 25 MG CAPSULE PO SCH ×4 (06:08→22:16)
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
[2017-07-16] MEDS ORDERED: PRENATAL VITAMINS W/ FOLIC ACID TABLET (FP) PO SCH (10:00)
[2017-07-16 10:08] LABS: HEMATOCRIT 43.8 % (35.4-49); HEMOGLOBIN 14.7 GM/dL (11.7-16.9); MCH 33.2 pg (25.7-33.7); MCHC 33.5 g/dl (32.0-35.9); MEAN CELL VOLUME 99.3 fl (80-96); PLATELET COUNT 192 K/MM3 (134-434); RBC 4.41 M/mm3 (4.00-5.60); RDW 15.3 % (11.9-15.9); WHITE BLOOD COUNT 2.8 K/mm3 (4.0-10.0)
[2017-07-16 10:33] LABS: ALBUMIN 3.6 g/dl (3.4-5.0); ANION GAP 4 (8-16); BLOOD UREA NITROGEN 16 mg/dL (7-18); CALCIUM 8.6 mg/dL (8.5-10.1); CHLORIDE 109 mmol/L (98-107); CO2 30 mmol/L (21-32); GLUCOSE,RANDOM 80 mg/dL (74-106); POTASSIUM 4.3 mmol/L (3.5-5.1); SGOT/AST 43 U/L (15-37); SODIUM 143 mmol/L (136-145)
--- NOTE | 2017-07-16 10:35 | CONSULT ---
[facility] Psychiatric Consult - Data Date of interview: 07/16/17 Admission source: [facility] Identifying data: Approached patient at bedside for the psychiatric interview." I told the people downstairs that I don't need psychiatrists.I am fine.Stop asking me questions.Have a nice day." Mr Valadez declines to talk to this show card writer.He shows no evidence of distress.Noted resting confortably in bed.Well groomed.Polite in his refusal.Examination waived.Nursing staff is made aware.
[2017-07-16 10:40] LABS: ALK PHOS 73 U/L (45-117); BILIRUBIN,TOTAL 0.6 mg/dL (0.2-1.0); CREATININE 1.3 mg/dL (0.7-1.3); SGPT/ALT 35 U/L (12-78); TOT PROT 6.5 g/dl (6.4-8.2)
[2017-07-16] MEDS: NICOTINE 21 MG/24 HOURS TOPICAL PATCH TD SCH (10:43)
--- NOTE | 2017-07-16 12:18 | PN ---
[facility] CIWA - CIWA Score Nausea/Vomitin-No Nausea/No Vomiting Muscle Tremors: 3 Anxiety: 3 Agitation: 2 Paroxysmal Sweats: 3 Orientation: 0-Oriented Tacttile Disturbances: 3-Moderate Itch/Numb/Burn Auditory Disturbances: 2-Mild Harshness/Frighten Visual Disturbances: 0-None Headache: 0-None Present CIWA-Ar Total Score: 16 BHS Progress Note (SOAP) Subjective: Fatigue, Tremors, Sweating, Anxious. Objective: PATIENT A & O X 3. NO ACUTE DISTRESS. 07/16/17 12:15 Vital Signs Temperature 97.3 F L 07/16/17 09:28 Pulse Rate 65 07/16/17 09:28 Respiratory Rate 18 07/16/17 09:28 Blood Pressure 117/68 07/16/17 09:28 O2 Sat by Pulse Oximetry (%) Laboratory Tests 07/15/17 07/16/17 07/16/17 13:53 07:00 07:00 WBC 2.8 L D RBC 4.41 Hgb 14.7 Hct 43.8 MCV 99.3 H MCH 33.2 MCHC 33.5 RDW 15.3 Plt Count 192 MPV 9.0 D Sodium 143 Potassium 4.3 Chloride 109 H Carbon Dioxide 30 Anion Gap 4 L BUN 16 D Creatinine 1.3 Creat Clearance w eGFR 57.53 Random Glucose 80 Calcium 8.6 Total Bilirubin 0.6 D AST 43 H D ALT 35 D Alkaline Phosphatase 73 Total Protein 6.5 Albumin 3.6 Urine Color Yellow Urine Appearance Cloudy Urine pH 6.0 Ur Specific [place] 1.013 Urine Protein 1+ H Urine Glucose (UA) Negative Urine Ketones Negative Urine Blood Negative Urine Nitrite Negative Urine Bilirubin Negative Urine Urobilinogen 2.0 Ur Leukocyte Esterase 3+ H Urine WBC (Auto) 101 Urine RBC (Auto) 3 Ur Epithelial Cells Rare Urine Bacteria Many Hyaline Casts 4 Urine Mucus Few RPR Titer 07/16/17 07:00 WBC RBC Hgb Hct MCV MCH MCHC RDW Plt Count MPV Sodium Potassium Chloride Carbon Dioxide Anion Gap BUN Creatinine Creat Clearance w eGFR Random Glucose Calcium Total Bilirubin AST ALT Alkaline Phosphatase Total Protein Albumin Urine Color Urine Appearance Urine pH Ur Specific [place] Urine Protein Urine Glucose (UA) Urine Ketones Urine Blood Urine Nitrite Urine Bilirubin Urine Urobilinogen Ur Leukocyte Esterase Urine WBC (Auto) Urine RBC (Auto) Ur Epithelial Cells Urine Bacteria Hyaline Casts Urine Mucus RPR Titer Nonreactive LABS NOTED. Assessment: 07/16/17 12:15 WITHDRAWAL SYMPTOMS. Plan: CONTINUE DETOX. REPEAT UA WITH URINE C + S FOR ADMISSION UA ABNORMALITIES (PATIENT HAS HISTORY OF SUBRAPUBIC CATHETER. INCREASE DAILY PO FLUID INTAKE.
[2017-07-16 16:47] LABS: URINE APPEARANCE SLCLOUDY; URINE BILIRUBIN NEGATIVE (<2.0 mg/dL); URINE BLOOD NEGATIVE (NEGATIVE); URINE COLOR YELLOW; URINE GLUCOSE (UA) NEGATIVE (NEGATIVE); URINE KETONE NEGATIVE (NEGATIVE); URINE NITRITE POSITIVE (NEGATIVE); URINE PROTEIN NEGATIVE (NEGATIVE); URINE UROBILINOGEN NEGATIVE mg/dL (0.2-1.0)
[2017-07-16 16:51] LABS: URINE LEUK ESTERASE 3+ (NEGATIVE)
[2017-07-16 18:53] LABS: URINE BACTERIA MANY /hpf (NONE SEEN)
[2017-07-16] MEDS: MELATONIN 5 MG TABLETS PO SCH (22:16)
[2017-07-16] MEDS: THIAMINE HCL 100 MG TABLET (FP) PO SCH (22:16)
[2017-07-17] MEDS: chlordiazePOXIDE HCL 25 MG CAPSULE PO SCH (05:56)
[2017-07-17 06:06] VITALS: BP 108/66; PULSE 63; TEMP 97.1
--- NOTE | 2017-07-17 10:18 | PN ---
[facility] CIWA - CIWA Score Nausea/Vomitin-No Nausea/No Vomiting Muscle Tremors: 2 Anxiety: 4-Mod. Anxious/Guarded Agitation: 4-Moderately Restless Paroxysmal Sweats: 3 Orientation: 0-Oriented Tacttile Disturbances: 2-Mild Itch/Numbness/Burn Auditory Disturbances: 0-None Visual Disturbances: 0-None Headache: 0-None Present CIWA-Ar Total Score: 15 BHS Progress Note (SOAP) Subjective: Tremors, Sweating, Anxious, Body Aches. Objective: PATIENT A & O X 3, OBSERVED AMBULATING ON UNIT. NO ACUTE DISTRESS. 07/17/17 10:19 Vital Signs Temperature 97.1 F L 07/17/17 06:06 Pulse Rate 63 07/17/17 06:06 Respiratory Rate 18 07/17/17 06:06 Blood Pressure 108/66 07/17/17 06:06 O2 Sat by Pulse Oximetry (%) Laboratory Tests 07/15/17 07/16/17 07/16/17 13:53 07:00 07:00 WBC 2.8 L D RBC 4.41 Hgb 14.7 Hct 43.8 MCV 99.3 H MCH 33.2 MCHC 33.5 RDW 15.3 Plt Count 192 MPV 9.0 D Sodium 143 Potassium 4.3 Chloride 109 H Carbon Dioxide 30 Anion Gap 4 L BUN 16 D Creatinine 1.3 Creat Clearance w eGFR 57.53 Random Glucose 80 Calcium 8.6 Total Bilirubin 0.6 D AST 43 H D ALT 35 D Alkaline Phosphatase 73 Total Protein 6.5 Albumin 3.6 Urine Color Yellow Urine Appearance Cloudy Urine pH 6.0 Ur Specific [place] 1.013 Urine Protein 1+ H Urine Glucose (UA) Negative Urine Ketones Negative Urine Blood Negative Urine Nitrite Negative Urine Bilirubin Negative Urine Urobilinogen 2.0 Ur Leukocyte Esterase 3+ H Urine WBC (Auto) 101 Urine RBC (Auto) 3 Ur Epithelial Cells Rare Urine Bacteria Many Hyaline Casts 4 Urine Mucus Few RPR Titer 07/16/17 07/16/17 07:00 15:00 WBC RBC Hgb Hct MCV MCH MCHC RDW Plt Count MPV Sodium Potassium Chloride Carbon Dioxide Anion Gap BUN Creatinine Creat Clearance w eGFR Random Glucose Calcium Total Bilirubin AST ALT Alkaline Phosphatase Total Protein Albumin Urine Color Yellow Urine Appearance Slcloudy Urine pH 6.0 Ur Specific [place] 1.013 Urine Protein Negative Urine Glucose (UA) Negative Urine Ketones Negative Urine Blood Negative Urine Nitrite Positive Urine Bilirubin Negative Urine Urobilinogen Negative Ur Leukocyte Esterase 3+ H Urine WBC (Auto) 10-15 Urine RBC (Auto) 0-3 Ur Epithelial Cells Urine Bacteria Many Hyaline Casts Urine Mucus RPR Titer Nonreactive LABS NOTED. RESULTS OF URINE CULTURE PENDING. 07/17/17 10:21 Assessment: 07/17/17 10:20 WITHDRAWAL SYMPTOMS. Plan: CONTINUE DETOX. INCREASE DAILY PO FLUID INTAKE.
--- NOTE | 2017-07-17 10:28 | DS ---
[facility] Detox Discharge Summary Admission Date: 07/15/17 Discharge Date: 07/17/17 - History Present History: Alcohol Dependence, Cocaine Dependence Additional Comments: PATIENT DOES NOT WISH TO STAY TO COMPLETE DETOX REGIMEN. RISKS OF LEAVING DETOX UNIT AGAINST MEDICAL ADVICE AND PATIENT PRIOR TO COMPLETION OF DETOX REGIMEN EXPLAINED TO PATIENT. PRIOR TO LEAVING, PATIENT DID NOTE THAT HE WOULD BE FOLLOWING UP WITH HIS UROLOGIST IN [facility] FOR FOLLOW-UP CARE AND ASSESSMENT FOR HISTORY OF INDWELLING URINARY CATHETER. PATIENT ADVISED TO GO IMMEDIATELY TO NEAREST ER SHOULD ANY INTOLERABLE DETOX SYMPTOMS DEVELOP AT ANY TIME. PATIENT LEFT DETOX UNIT IN STABLE MEDICAL CONDITION. Pertinent Past History: Nicotine Dependence, Indwelling Suprapubic Urinary Catheter, Weight Loss. - Physical Exam Results Vital Signs: Vital Signs Temperature 97.1 F L 07/17/17 06:06 Pulse Rate 63 07/17/17 06:06 Respiratory Rate 18 07/17/17 06:06 Blood Pressure 108/66 07/17/17 06:06 O2 Sat by Pulse Oximetry (%) Pertinent Admission Physical Exam Findings: WITHDRAWAL SYMPTOMS. Laboratory Tests 07/15/17 07/16/17 07/16/17 13:53 07:00 07:00 WBC 2.8 L D RBC 4.41 Hgb 14.7 Hct 43.8 MCV 99.3 H MCH 33.2 MCHC 33.5 RDW 15.3 Plt Count 192 MPV 9.0 D Sodium 143 Potassium 4.3 Chloride 109 H Carbon Dioxide 30 Anion Gap 4 L BUN 16 D Creatinine 1.3 Creat Clearance w eGFR 57.53 Random Glucose 80 Calcium 8.6 Total Bilirubin 0.6 D AST 43 H D ALT 35 D Alkaline Phosphatase 73 Total Protein 6.5 Albumin 3.6 Urine Color Yellow Urine Appearance Cloudy Urine pH 6.0 Ur Specific [place] 1.013 Urine Protein 1+ H Urine Glucose (UA) Negative Urine Ketones Negative Urine Blood Negative Urine Nitrite Negative Urine Bilirubin Negative Urine Urobilinogen 2.0 Ur Leukocyte Esterase 3+ H Urine WBC (Auto) 101 Urine RBC (Auto) 3 Ur Epithelial Cells Rare Urine Bacteria Many Hyaline Casts 4 Urine Mucus Few RPR Titer 07/16/17 07/16/17 07:00 15:00 WBC RBC Hgb Hct MCV MCH MCHC RDW Plt Count MPV Sodium Potassium Chloride Carbon Dioxide Anion Gap BUN Creatinine Creat Clearance w eGFR Random Glucose Calcium Total Bilirubin AST ALT Alkaline Phosphatase Total Protein Albumin Urine Color Yellow Urine Appearance Slcloudy Urine pH 6.0 Ur Specific [place] 1.013 Urine Protein Negative Urine Glucose (UA) Negative Urine Ketones Negative Urine Blood Negative Urine Nitrite Positive Urine Bilirubin Negative Urine Urobilinogen Negative Ur Leukocyte Esterase 3+ H Urine WBC (Auto) 10-15 Urine RBC (Auto) 0-3 Ur Epithelial Cells Urine Bacteria Many Hyaline Casts Urine Mucus RPR Titer Nonreactive LABS NOTED. - Treatment Hospital Course: Detoxed Safely - Medication Discharge Medications: Ambulatory Orders NK [No Known Home Medication] 07/15/17 - Diagnosis (1) Alcohol dependence with uncomplicated withdrawal Status: Acute (2) Cocaine dependence Status: Acute Qualifiers: Substance use status: uncomplicated Qualified Code(s): F14.20 - Cocaine dependence, uncomplicated (3) Blind right eye Status: Chronic (4) Nicotine dependence Status: Chronic Qualifiers: Nicotine product type: cigarettes Substance use status: uncomplicated Qualified Code(s): F17.210 - Nicotine dependence, cigarettes, uncomplicated (5) Suprapubic catheter Status: Chronic (6) Weight loss Status: Suspected - AMA Did Patient Leave Against Medical Advice: Yes (PATIENT DID NOT WISH TO STAY TO COMPLETE DETOX REGIMEN.)
[2017-07-17] MEDS ORDERED: chlordiazePOXIDE 5 MG CAPSULE PO SCH (17:00)
[2017-07-18] MEDS ORDERED: chlordiazePOXIDE HCL 10 MG CAPSULE PO SCH (17:00)
== END 2017-07-17 08:18 | disposition left against medical advice (07) | DRG 770 ==
LOC: YASAS 10:03 → Y3N 11:34
PROVIDERS: ADMIT Internal Medicine; ATTEND Internal Medicine
PROC: HZ2ZZZZ Detoxification Services for Substance Abuse Treatment (ICD-10-PCS; principal; 2017-07-15)
DX: F10.230 Alcohol dependence with withdrawal, uncomplicated (principal); F14.20 Cocaine dependence, uncomplicated; F17.210 Nicotine dependence, cigarettes, uncomplicated; H54.40 Blindness, one eye, unspecified eye; Z96.0 Presence of urogenital implants; Z93.6 Other artificial openings of urinary tract status; Z87.898 Personal history of other specified conditions
CPT/HCPCS: 36415; 80053; 81003; 81015; 85027; 86593; 87086; 87186; 93005; 93010

== ENCOUNTER 2017-08-22 08:39 | Inpatient (IN) | payer OTHER ==
[2017-08-22 11:48] VITALS: BMI 21.5
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
[2017-08-22] MEDS ORDERED: MAG HYDROX/AL HYDROX/SIMETH 30 ML UNIT-DOSE CUP PO PRN (12:56)
[2017-08-22] MEDS ORDERED: P-EPHED 60MG/TRIPROLIDI 2.5MG TABLET PO PRN (12:56)
[2017-08-22] MEDS ORDERED: IBUPROFEN 400 MG TABLET (FP) PO PRN (12:56)
[2017-08-22] MEDS ORDERED: LOPERAMIDE HCL 2 MG CAPSULE PO PRN (12:56)
[2017-08-22] MEDS ORDERED: ACETAMINOPHEN 325 MG TABLET (FP) PO PRN (12:56)
[2017-08-22] MEDS ORDERED: MAGNESIUM CITRATE 300 ML BOTTLE PO PRN (12:56)
[2017-08-22] MEDS ORDERED: MENTHOL/PHENOL 1 EACH UD MM PRN (12:56)
[2017-08-22] MEDS ORDERED: MAGNESIUM HYDROX 2400MG/30ML ORAL SUSPENSION 30 ML CUP PO PRN (12:56)
[2017-08-22] MEDS ORDERED: NICOTINE POLACRILEX 4 MG GUM BC PRN (12:56)
[2017-08-22] MEDS ORDERED: diazePAM 5 MG TABLET PO PRN (12:56)
[2017-08-22] MEDS ORDERED: guaiFENesin/D-METHORPHAN HB 10 ML UNIT-DOSE CUPS PO PRN (12:56)
[2017-08-22] MEDS ORDERED: diazePAM 5 MG TABLET PO ONE (13:30)
[2017-08-22] MEDS: NICOTINE 21 MG/24 HOURS TOPICAL PATCH TD SCH (15:55)
--- NOTE | 2017-08-22 16:27 | CONSULT ---
[facility] Psych[facility] Consult - Data Date of interview: 08/22/17 Admission [facility] Identifying data: Patient is a 57 year old single male, father of four, unemployed, receiving 's disability, and resides in a one bedroom apartment. This is one of multiple admissions for patient. Pt. admitted to for cannabis, cocaine, and benzodiazepine dependence. Substance Abuse History: Following information confirmed with Mr. Hatch: Smoking Cessation. Smoking history: Current every day smoker. Have you smoked in the past 12 months: Yes. Aproximately how many cigarettes per day: 20. Cigars Per Day: 0. Hx Chewing Tobacco Use: No. Initiated information on smoking cessation: Yes. 'Breaking Loose' booklet given: 08/22/17. - Substance & Tx. History. Hx Alcohol Use: Yes. Hx Substance Use: Yes. Substance Use Type : Alcohol, Tranquilizers. Hx Substance Use Treatment: Yes (06/2017 [facility]). - Substances Abused. Cocaine. Route: Inhalation. Frequency: 1-2 times per week. Amount used: $20. Age of first use: 38. Date of Last Use: . Alcohol-vodka. Route: Oral. Frequency: Daily. Amount used: 2 pts. Age of first use: 23. Date of Last Use: 08/22/17. Xanax. Route: Oral. Frequency: Daily. Amount used: 4 mg. Age of first use: 39. Date of Last Use: 08/21/17. Marijuana. Route: Smoking. Frequency: 3-6 times per week. Amount used: $20. Age of first use: 18. Date of Last Use: 08/21/17 Medical History: suprapubic catheter Psychiatric History: Patient denies h/o psychiatric hospitalizations, outpatient care, and suicide attempt. Physical/Sexual Abuse/Trauma History: Denies. 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 Mental Status Exam - Mental Status Exam Alert and Oriented to: Time, Place, Person Cognitive Function: Good Patient Appearance: Well Groomed Mood: Euthymic Affect: Mood Congruent Patient Behavior: Cooperative Speech Pattern: Appropriate Voice Loudness: Moderately Soft/Quiet Thought Process: Goal Oriented Thought Disorder: Not Present Hallucinations: Denies Suicidal Ideation: Denies Homicidal Ideation: Denies Insight/Judgement: Poor Sleep: Poorly Appetite: Fair Muscle strength/Tone: Normal Gait/Station: Normal Psychiatric Findings - Problem List ([place] 1, 2,3) (1) Alcohol dependence with uncomplicated withdrawal Current Visit: Yes Status: Acute (2) Nicotine dependence Current Visit: Yes Status: Acute Qualifiers: Nicotine product type: cigarettes Substance use status: in withdrawal Qualified Code(s): F17.213 - Nicotine dependence, cigarettes, with withdrawal (3) Sedative, hypnotic or anxiolytic dependence, uncomplicated Current Visit: Yes Status: Acute (4) Cocaine dependence Current Visit: Yes Status: Acute Qualifiers: Substance use status: uncomplicated Qualified Code(s): F14.20 - Cocaine dependence, uncomplicated (5) Insomnia Current Visit: Yes Status: Acute - Initial Treatment Plan Initial Treatment Plan: Psychoeducation provided. Detoxification in progress. Melatonin 5mg ordered for insomnia by the FIRST AID INSTRUCTOR. Will continue to monitor.
[2017-08-22 18:34] LABS: URINE APPEARANCE SLCLOUDY; URINE BILIRUBIN NEGATIVE (<2.0 mg/dL); URINE COLOR YELLOW; URINE GLUCOSE (UA) NEGATIVE (NEGATIVE); URINE KETONE NEGATIVE (NEGATIVE); URINE NITRITE POSITIVE (NEGATIVE); URINE PROTEIN NEGATIVE (NEGATIVE); URINE UROBILINOGEN NEGATIVE mg/dL (0.2-1.0)
[2017-08-22 18:58] LABS: URINE LEUK ESTERASE 3+ (NEGATIVE)
[2017-08-22 19:01] LABS: EPI CELLS RARE /HPF (FEW); URINE BACTERIA RARE /hpf (NONE SEEN); URINE HYALINE CAST 1 /lpf; URINE MUCUS RARE
[2017-08-22] MEDS ORDERED: MELATONIN 5 MG TABLETS PO PRN (22:00)
[2017-08-22] MEDS: diazePAM 5 MG TABLET PO SCH (22:44)
[2017-08-22] MEDS: THIAMINE HCL 100 MG TABLET (FP) PO SCH (22:44)
[2017-08-23] MEDS: diazePAM 5 MG TABLET PO SCH ×3 (06:29→22:49)
[2017-08-23 09:45] LABS: HEMOGLOBIN 14.3 GM/dL (11.7-16.9); MCH 33.5 pg (25.7-33.7); MEAN CELL VOLUME 98.7 fl (80-96); MEAN PLT VOLUME 10.3 fl (7.5-11.1); PLATELET COUNT 245 K/MM3 (134-434); RBC 4.26 M/mm3 (4.00-5.60); RDW 14.8 % (11.9-15.9); WHITE BLOOD COUNT 7.6 K/mm3 (4.0-10.0)
[2017-08-23] MEDS: PRENATAL VITAMINS W/ FOLIC ACID TABLET (FP) PO SCH (10:35)
[2017-08-23] MEDS: NICOTINE 21 MG/24 HOURS TOPICAL PATCH TD SCH (10:36)
[2017-08-23 10:42] LABS: CHLORIDE 107 mmol/L (98-107); POTASSIUM 4.3 mmol/L (3.5-5.1); SODIUM 144 mmol/L (136-145)
[2017-08-23 10:45] LABS: ALBUMIN 3.9 g/dl (3.4-5.0); ALK PHOS 87 U/L (45-117); ANION GAP 10 (8-16); BILIRUBIN,TOTAL 0.5 mg/dL (0.2-1.0); BLOOD UREA NITROGEN 19 mg/dL (7-18); CALCIUM 9.6 mg/dL (8.5-10.1); CO2 27 mmol/L (21-32); CREATININE 1.2 mg/dL (0.7-1.3); GLUCOSE,RANDOM 91 mg/dL (74-106); SGOT/AST 27 U/L (15-37); SGPT/ALT 22 U/L (12-78); TOT PROT 7.5 g/dl (6.4-8.2)
--- NOTE | 2017-08-23 11:32 | EKG ---
Test Reason : Blood Pressure : / mmHG Vent. Rate : 078 BPM Atrial Rate : 078 BPM P-R Int : 166 ms QRS Dur : 080 ms QT Int : 382 ms P-R-T Axes : 071 049 058 degrees QTc Int : 435 ms NORMAL SINUS RHYTHM CANNOT RULE OUT ANTEROSEPTAL INFARCT (CITED ON OR BEFORE 20-JAN-2017) ABNORMAL ECG WHEN COMPARED WITH ECG OF 15-JUL-2017 12:04, QUESTIONABLE CHANGE IN INITIAL FORCES OF ANTERIOR LEADS Confirmed by ALEX RIBEIRO MD ([id number]) on 08/23/2017 11:31:30 AM Referred By: Confirmed By:ALEX RIBEIRO MD
--- NOTE | 2017-08-23 11:47 | PN ---
S CIWA - CIWA Score Nausea/Vomitin Muscle Tremors: 3 Anxiety: 3 Agitation: 2 Paroxysmal Sweats: 1-Minimal Palms Moist Orientation: 0-Oriented Tacttile Disturbances: 1-Very Mild Itch/Numbness Auditory Disturbances: 1-Very Mild Visual Disturbances: 0-None Headache: 2-Mild CIWA-Ar Total Score: 16 S Progress Note (SOAP) Subjective: ALERT,IRRITABLE,ANXIOUS,INTERRUPTED SLEEP,TREMOR Objective: 08/23/17 11:43 Vital Signs Temperature 98.1 F 08/23/17 09:30 Pulse Rate 70 08/23/17 09:30 Respiratory Rate 16 08/23/17 09:30 Blood Pressure 107/71 08/23/17 09:30 O2 Sat by Pulse Oximetry (%) EKG NSR,PROLONG QT 382/435 NO CHEST PAIN,NO SOB,NO DIZZINESS Laboratory Last Values WBC 7.6 K/mm3 (4.0-10.0) D 08/23/17 06:00 RBC 4.26 M/mm3 (4.00-5.60) 08/23/17 06:00 Hgb 14.3 GM/dL (11.7-16.9) 08/23/17 06:00 Hct 42.0 % (35.4-49) 08/23/17 06:00 MCV 98.7 fl (80-96) H 08/23/17 06:00 MCH 33.5 pg (25.7-33.7) 08/23/17 06:00 MCHC 34.0 g/dl (32.0-35.9) 08/23/17 06:00 RDW 14.8 % (11.9-15.9) 08/23/17 06:00 Plt Count 245 K/MM3 (134-434) D 08/23/17 06:00 MPV 10.3 fl (7.5-11.1) D 08/23/17 06:00 Sodium 144 mmol/L (136-145) 08/23/17 06:00 Potassium 4.3 mmol/L (3.5-5.1) 08/23/17 06:00 Chloride 107 mmol/L (98-107) 08/23/17 06:00 Carbon Dioxide 27 mmol/L (21-32) 08/23/17 06:00 Anion Gap 10 (8-16) 08/23/17 06:00 BUN 19 mg/dL (7-18) H 08/23/17 06:00 Creatinine 1.2 mg/dL (0.7-1.3) 08/23/17 06:00 Creat Clearance w eGFR > 60 (>60) 08/23/17 06:00 Random Glucose 91 mg/dL (74-106) 08/23/17 06:00 Calcium 9.6 mg/dL (8.5-10.1) 08/23/17 06:00 Total Bilirubin 0.5 mg/dL (0.2-1.0) 08/23/17 06:00 AST 27 U/L (15-37) D 08/23/17 06:00 ALT 22 U/L (12-78) D 08/23/17 06:00 Alkaline Phosphatase 87 U/L (45-117) 08/23/17 06:00 Total Protein 7.5 g/dl (6.4-8.2) 08/23/17 06:00 Albumin 3.9 g/dl (3.4-5.0) 08/23/17 06:00 Urine Color Yellow 08/22/17 15:00 Urine Appearance Slcloudy 08/22/17 15:00 Urine pH 6.0 (5.0-8.0) 08/22/17 15:00 Ur Specific [place] 1.014 (1.001-1.035) 08/22/17 15:00 Urine Protein Negative (NEGATIVE) 08/22/17 15:00 Urine Glucose (UA) Negative (NEGATIVE) 08/22/17 15:00 Urine Ketones Negative (NEGATIVE) 08/22/17 15:00 Urine Blood Negative (NEGATIVE) 08/22/17 15:00 Urine Nitrite Positive (NEGATIVE) 08/22/17 15:00 Urine Bilirubin Negative (<2.0 mg/dL) 08/22/17 15:00 Urine Urobilinogen Negative mg/dL (0.2-1.0) 08/22/17 15:00 Ur Leukocyte Esterase 3+ (NEGATIVE) H 08/22/17 15:00 Urine WBC (Auto) 21 /hpf (3-5) 08/22/17 15:00 Urine RBC (Auto) 1 /hpf (0-3) 08/22/17 15:00 Ur Epithelial Cells Rare /HPF (FEW) 08/22/17 15:00 Urine Bacteria Rare /hpf (NONE SEEN) 08/22/17 15:00 Hyaline Casts 1 /lpf 08/22/17 15:00 Urine Mucus Rare 08/22/17 15:00 Assessment: 08/23/17 11:45 WITHDRAWAL SYMPTOM Plan: CONTINUE DETOX,UA,ENCOURAGE ORAL FLUID
[2017-08-23 17:36] LABS: URINE APPEARANCE SLCLOUDY; URINE BILIRUBIN NEGATIVE (<2.0 mg/dL); URINE COLOR YELLOW; URINE GLUCOSE (UA) NEGATIVE (NEGATIVE); URINE KETONE NEGATIVE (NEGATIVE); URINE NITRITE POSITIVE (NEGATIVE); URINE PROTEIN NEGATIVE (NEGATIVE); URINE UROBILINOGEN NEGATIVE mg/dL (0.2-1.0)
[2017-08-23 17:46] LABS: URINE LEUK ESTERASE 3+ (NEGATIVE)
[2017-08-23 18:07] LABS: EPI CELLS RARE /HPF (FEW); URINE BACTERIA RARE /hpf (NONE SEEN); URINE MUCUS RARE
[2017-08-23] MEDS: THIAMINE HCL 100 MG TABLET (FP) PO SCH (22:49)
[2017-08-24] MEDS: PRENATAL VITAMINS W/ FOLIC ACID TABLET (FP) PO SCH (11:04)
[2017-08-24] MEDS: diazePAM 5 MG TABLET PO SCH ×2 (11:04→22:27)
[2017-08-24] MEDS: NICOTINE 21 MG/24 HOURS TOPICAL PATCH TD SCH (11:05)
--- NOTE | 2017-08-24 13:18 | PN ---
S CIWA - CIWA Score Nausea/Vomitin Muscle Tremors: 3 Anxiety: 3 Agitation: 2 Paroxysmal Sweats: 1-Minimal Palms Moist Orientation: 0-Oriented Tacttile Disturbances: 1-Very Mild Itch/Numbness Auditory Disturbances: 1-Very Mild Visual Disturbances: 0-None Headache: 2-Mild CIWA-Ar Total Score: 16 [facility] Progress Note (SOAP) Subjective: ALERT,IRRITABLE,ANXIOUS,INTERRUPTED SLEEP,S/P SUPRAPUBIC CYSTOSTOMY Objective: 08/24/17 13:19 Vital Signs Temperature 97.9 F 08/24/17 10:22 Pulse Rate 75 08/24/17 10:22 Respiratory Rate 18 08/24/17 10:22 Blood Pressure 113/69 08/24/17 10:22 O2 Sat by Pulse Oximetry (%) Laboratory Results - last 24 hr 08/23/17 17:07 Urine Color Yellow Urine Appearance Slcloudy Urine pH 7.0 Ur Specific [place] 1.012 Urine Protein Negative Urine Glucose (UA) Negative Urine Ketones Negative Urine Blood Negative Urine Nitrite Positive Urine Bilirubin Negative Urine Urobilinogen Negative Ur Leukocyte Esterase 3+ H Urine WBC (Auto) 7 Urine RBC (Auto) 1 Ur Epithelial Cells Rare Urine Bacteria Rare Urine Mucus Rare Assessment: 08/24/17 13:20 WITHDRAWAL SYMPTOM Plan: CONTINUE DETOX
[2017-08-24] MEDS: THIAMINE HCL 100 MG TABLET (FP) PO SCH (22:27)
[2017-08-25] MEDS: diazePAM 5 MG TABLET PO SCH (09:33)
[2017-08-25] MEDS: NICOTINE 21 MG/24 HOURS TOPICAL PATCH TD SCH (09:33)
[2017-08-25] MEDS: PRENATAL VITAMINS W/ FOLIC ACID TABLET (FP) PO SCH (09:33)
--- NOTE | 2017-08-25 09:34 | PN ---
S Progress Note (SOAP) Subjective: Anxiety Objective: 08/25/17 09:31 Laboratory Last Values WBC 7.6 K/mm3 (4.0-10.0) D 08/23/17 06:00 RBC 4.26 M/mm3 (4.00-5.60) 08/23/17 06:00 Hgb 14.3 GM/dL (11.7-16.9) 08/23/17 06:00 Hct 42.0 % (35.4-49) 08/23/17 06:00 MCV 98.7 fl (80-96) H 08/23/17 06:00 MCH 33.5 pg (25.7-33.7) 08/23/17 06:00 MCHC 34.0 g/dl (32.0-35.9) 08/23/17 06:00 RDW 14.8 % (11.9-15.9) 08/23/17 06:00 Plt Count 245 K/MM3 (134-434) D 08/23/17 06:00 MPV 10.3 fl (7.5-11.1) D 08/23/17 06:00 Sodium 144 mmol/L (136-145) 08/23/17 06:00 Potassium 4.3 mmol/L (3.5-5.1) 08/23/17 06:00 Chloride 107 mmol/L (98-107) 08/23/17 06:00 Carbon Dioxide 27 mmol/L (21-32) 08/23/17 06:00 Anion Gap 10 (8-16) 08/23/17 06:00 BUN 19 mg/dL (7-18) H 08/23/17 06:00 Creatinine 1.2 mg/dL (0.7-1.3) 08/23/17 06:00 Creat Clearance w eGFR > 60 (>60) 08/23/17 06:00 Random Glucose 91 mg/dL (74-106) 08/23/17 06:00 Calcium 9.6 mg/dL (8.5-10.1) 08/23/17 06:00 Total Bilirubin 0.5 mg/dL (0.2-1.0) 08/23/17 06:00 AST 27 U/L (15-37) D 08/23/17 06:00 ALT 22 U/L (12-78) D 08/23/17 06:00 Alkaline Phosphatase 87 U/L (45-117) 08/23/17 06:00 Total Protein 7.5 g/dl (6.4-8.2) 08/23/17 06:00 Albumin 3.9 g/dl (3.4-5.0) 08/23/17 06:00 Urine Color Yellow 08/23/17 17:07 Urine Appearance Slcloudy 08/23/17 17:07 Urine pH 7.0 (5.0-8.0) 08/23/17 17:07 Ur Specific [place] 1.012 (1.001-1.035) 08/23/17 17:07 Urine Protein Negative (NEGATIVE) 08/23/17 17:07 Urine Glucose (UA) Negative (NEGATIVE) 08/23/17 17:07 Urine Ketones Negative (NEGATIVE) 08/23/17 17:07 Urine Blood Negative (NEGATIVE) 08/23/17 17:07 Urine Nitrite Positive (NEGATIVE) 08/23/17 17:07 Urine Bilirubin Negative (<2.0 mg/dL) 08/23/17 17:07 Urine Urobilinogen Negative mg/dL (0.2-1.0) 08/23/17 17:07 Ur Leukocyte Esterase 3+ (NEGATIVE) H 08/23/17 17:07 Urine WBC (Auto) 7 /hpf (3-5) 08/23/17 17:07 Urine RBC (Auto) 1 /hpf (0-3) 08/23/17 17:07 Ur Epithelial Cells Rare /HPF (FEW) 08/23/17 17:07 Urine Bacteria Rare /hpf (NONE SEEN) 08/23/17 17:07 Hyaline Casts 1 /lpf 08/22/17 15:00 Urine Mucus Rare 08/23/17 17:07 RPR Titer Nonreactive (NONREACTIVE) 08/23/17 06:00 Labs noted Positive nitrites and leukocyte esterase Vital Signs 08/25/17 08/25/17 03:30 06:18 Temperature 98.2 F Pulse Rate 61 Respiratory 18 18 Rate Blood Pressure 107/69 Assessment: 08/25/17 09:32 Withdrawal sx UTI Plan: Continue detox Chronic indwelling negron, UTI chronic
[2017-08-25 10:50] VITALS: BP 122/88; PULSE 74; TEMP 98.1
--- NOTE | 2017-08-25 11:01 | DS ---
[facility] Detox Discharge Summary Admission Date: 08/22/17 Discharge Date: 08/25/17 - History Present History: Alcohol Dependence, Cocaine Dependence Pertinent Past History: Chronic indwelling negron, right eye blindness. Patient discharged early as he stated he has an "emergent appointment with his urologist." Patient stable with no acute findings. - Physical Exam Results Vital Signs: Vital Signs Temperature 98.1 F 08/25/17 10:00 Pulse Rate 74 08/25/17 10:00 Respiratory Rate 18 08/25/17 10:00 Blood Pressure 122/88 08/25/17 10:00 O2 Sat by Pulse Oximetry (%) Pertinent Admission Physical Exam Findings: withdrawal sx Laboratory Last Values WBC 7.6 K/mm3 (4.0-10.0) D 08/23/17 06:00 RBC 4.26 M/mm3 (4.00-5.60) 08/23/17 06:00 Hgb 14.3 GM/dL (11.7-16.9) 08/23/17 06:00 Hct 42.0 % (35.4-49) 08/23/17 06:00 MCV 98.7 fl (80-96) H 08/23/17 06:00 MCH 33.5 pg (25.7-33.7) 08/23/17 06:00 MCHC 34.0 g/dl (32.0-35.9) 08/23/17 06:00 RDW 14.8 % (11.9-15.9) 08/23/17 06:00 Plt Count 245 K/MM3 (134-434) D 08/23/17 06:00 MPV 10.3 fl (7.5-11.1) D 08/23/17 06:00 Sodium 144 mmol/L (136-145) 08/23/17 06:00 Potassium 4.3 mmol/L (3.5-5.1) 08/23/17 06:00 Chloride 107 mmol/L (98-107) 08/23/17 06:00 Carbon Dioxide 27 mmol/L (21-32) 08/23/17 06:00 Anion Gap 10 (8-16) 08/23/17 06:00 BUN 19 mg/dL (7-18) H 08/23/17 06:00 Creatinine 1.2 mg/dL (0.7-1.3) 08/23/17 06:00 Creat Clearance w eGFR > 60 (>60) 08/23/17 06:00 Random Glucose 91 mg/dL (74-106) 08/23/17 06:00 Calcium 9.6 mg/dL (8.5-10.1) 08/23/17 06:00 Total Bilirubin 0.5 mg/dL (0.2-1.0) 08/23/17 06:00 AST 27 U/L (15-37) D 08/23/17 06:00 ALT 22 U/L (12-78) D 08/23/17 06:00 Alkaline Phosphatase 87 U/L (45-117) 08/23/17 06:00 Total Protein 7.5 g/dl (6.4-8.2) 08/23/17 06:00 Albumin 3.9 g/dl (3.4-5.0) 08/23/17 06:00 Urine Color Yellow 08/23/17 17:07 Urine Appearance Slcloudy 08/23/17 17:07 Urine pH 7.0 (5.0-8.0) 08/23/17 17:07 Ur Specific [place] 1.012 (1.001-1.035) 08/23/17 17:07 Urine Protein Negative (NEGATIVE) 08/23/17 17:07 Urine Glucose (UA) Negative (NEGATIVE) 08/23/17 17:07 Urine Ketones Negative (NEGATIVE) 08/23/17 17:07 Urine Blood Negative (NEGATIVE) 08/23/17 17:07 Urine Nitrite Positive (NEGATIVE) 08/23/17 17:07 Urine Bilirubin Negative (<2.0 mg/dL) 08/23/17 17:07 Urine Urobilinogen Negative mg/dL (0.2-1.0) 08/23/17 17:07 Ur Leukocyte Esterase 3+ (NEGATIVE) H 08/23/17 17:07 Urine WBC (Auto) 7 /hpf (3-5) 08/23/17 17:07 Urine RBC (Auto) 1 /hpf (0-3) 08/23/17 17:07 Ur Epithelial Cells Rare /HPF (FEW) 08/23/17 17:07 Urine Bacteria Rare /hpf (NONE SEEN) 08/23/17 17:07 Hyaline Casts 1 /lpf 08/22/17 15:00 Urine Mucus Rare 08/23/17 17:07 RPR Titer Nonreactive (NONREACTIVE) 08/23/17 06:00 Labs noted - Treatment Hospital Course: Detox Protocol Followed, Detoxed Safely, Responded well, Discharged Condition Good - Medication Discharge Medications: Ambulatory Orders NK [No Known Home Medication] 07/15/17 - Diagnosis (1) Alcohol dependence with uncomplicated withdrawal Current Visit: Yes Status: Acute (2) Cocaine dependence Current Visit: Yes Status: Acute Qualifiers: Substance use status: uncomplicated Qualified Code(s): F14.20 - Cocaine dependence, uncomplicated (3) Nicotine dependence Current Visit: Yes Status: Acute Qualifiers: Nicotine product type: cigarettes Substance use status: in withdrawal Qualified Code(s): F17.213 - Nicotine dependence, cigarettes, with withdrawal (4) Sedative, hypnotic or anxiolytic dependence, uncomplicated Current Visit: Yes Status: Acute (5) UTI (urinary tract infection) Current Visit: No Status: Acute Qualifiers: Urinary tract infection type: catheter-associated UTI Indwelling urinary catheter type: unspecified Encounter type: subsequent encounter Qualified Code(s): T83.511D - Infection and inflammatory reaction due to indwelling urethral catheter, subsequent encounter; N39.0 - Urinary tract infection, site not specified; N39.0 - Urinary tract infection, site not specified - AMA Did Patient Leave Against Medical Advice: No
[2017-08-26] MEDS ORDERED: diazePAM 5 MG TABLET PO SCH (10:00)
== END 2017-08-25 09:55 | disposition home or self-care (01) | DRG 774 ==
LOC: YASAS 08:39 → Y6N 14:05
PROVIDERS: ADMIT Internal Medicine; ATTEND Internal Medicine
PROC: HZ2ZZZZ Detoxification Services for Substance Abuse Treatment (ICD-10-PCS; principal; 2017-08-22)
DX: F13.230 Sedative, hypnotic or anxiolytic dependence with withdrawal, uncomplicated (principal); F10.230 Alcohol dependence with withdrawal, uncomplicated; F14.20 Cocaine dependence, uncomplicated; F17.210 Nicotine dependence, cigarettes, uncomplicated; G47.00 Insomnia, unspecified; R63.4 Abnormal weight loss; Z68.21 Body mass index [BMI] 21.0-21.9, adult; T83.511D Infection and inflammatory reaction due to indwelling urethral catheter, subsequent encounter; N39.0 Urinary tract infection, site not specified
CPT/HCPCS: 36415; 80053; 81003; 81015; 85027; 86593; 93005; 93010

== ENCOUNTER 2019-04-05 10:14 | Inpatient (IN) | payer OTHER ==
[2019-04-05 10:48] VITALS: BMI 17.4
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
[2019-04-05] MEDS ORDERED: IBUPROFEN 400 MG TABLET (FP) PO PRN (12:15)
[2019-04-05] MEDS ORDERED: NICOTINE POLACRILEX 2 MG GUM BUC PRN (12:15)
[2019-04-05] MEDS ORDERED: LORazepam 1 MG TABLET PO PRN (12:15)
[2019-04-05] MEDS ORDERED: MAG HYDROX/AL HYDROX/SIMETH 30 ML UNIT-DOSE CUP PO PRN (12:15)
[2019-04-05] MEDS ORDERED: ACETAMINOPHEN 325 MG TABLET (FP) PO PRN ×2 (12:15)
[2019-04-05] MEDS ORDERED: MENTHOL/PHENOL 1 EACH UD MM PRN (12:15)
[2019-04-05] MEDS ORDERED: MAGNESIUM HYDROX 2400MG/30ML ORAL SUSPENSION 30 ML CUP PO PRN (12:15)
[2019-04-05] MEDS ORDERED: MAGNESIUM CITRATE 300 ML BOTTLE PO PRN (12:15)
[2019-04-05] MEDS ORDERED: BISMUTH SUBSALICYLATE 524 MG/30 ML UD PO PRN (12:15)
[2019-04-05] MEDS ORDERED: MELATONIN 5 MG TABLETS PO PRN (12:15)
[2019-04-05] MEDS ORDERED: hydrOXYzine PAMOATE 25 MG CAPSULE (FP) PO PRN (12:15)
[2019-04-05] MEDS ORDERED: METHOCARBAMOL 500 MG TABLET PO PRN (12:15)
[2019-04-05] MEDS: NICOTINE 21 MG/24 HOURS TOPICAL PATCH TD SCH (13:34)
[2019-04-05] MEDS: LORazepam 2 MG TABLET PO SCH ×2 (17:17→22:38)
[2019-04-05] MEDS: THIAMINE HCL 100 MG TABLET (FP) PO SCH (22:38)
[2019-04-06] MEDS: LORazepam 2 MG TABLET PO SCH ×4 (07:43→22:24)
[2019-04-06] MEDS ORDERED: PNEUMOC 13-VAL CONJ-DIP CRM/PF 0.5 ML DISP.SYRIN IM ONE (10:00)
[2019-04-06 11:08] LABS: HEMATOCRIT 40.6 % (35.4-49); HEMOGLOBIN 13.4 GM/dL (11.7-16.9); MCH 32.9 pg (25.7-33.7); MCHC 32.9 g/dl (32.0-35.9); MEAN CELL VOLUME 99.9 fl (80-96); MEAN PLT VOLUME 9.3 fl (7.5-11.1); PLATELET COUNT 226 K/MM3 (134-434); RBC 4.06 M/mm3 (4.00-5.60); RDW 14.5 % (11.9-15.9); WHITE BLOOD COUNT 4.2 K/mm3 (4.0-10.0)
[2019-04-06 11:16] LABS: ALBUMIN 3.4 g/dl (3.4-5.0); BILIRUBIN,TOTAL 0.4 mg/dL (0.2-1); BLOOD UREA NITROGEN 13.6 mg/dL (7-18); CALCIUM 8.8 mg/dL (8.5-10.1); CREATININE 1.2 mg/dL (0.55-1.3); POTASSIUM 4.8 mmol/L (3.5-5.1); TOT PROT 6.5 g/dl (6.4-8.2)
[2019-04-06] MEDS: NICOTINE 21 MG/24 HOURS TOPICAL PATCH TD SCH (11:54)
[2019-04-06] MEDS: PRENATAL VITAMINS W/ FOLIC ACID TABLET (FP) PO SCH (11:54)
[2019-04-06] MEDS ORDERED: FLU VACCINE QUAD 60 MCG/0.5 ML (MDV 19-20) IM ONE (12:00)
[2019-04-06] MEDS ORDERED: PNEUMOCOCCAL 23 VACCINE 0.5 ML VIAL IM ONE (12:00)
--- NOTE | 2019-04-06 18:28 | PN ---
S CIWA - CIWA Score Nausea/Vomitin-Mild Nausea/No Vomiting Muscle Tremors: 2 Anxiety: 2 Agitation: 2 Paroxysmal Sweats: 2 Orientation: 0-Oriented Tacttile Disturbances: 0-None Auditory Disturbances: 0-None Visual Disturbances: 0-None Headache: 2-Mild CIWA-Ar Total Score: 11 S Progress Note (SOAP) Subjective: Feels ok, medication working Objective: 04/06/19 18:26 Last Vital Signs Temp Pulse Resp BP Pulse Ox 98.1 F 89 18 126/73 04/06/19 17:51 04/06/19 17:51 04/06/19 17:51 04/06/19 17:51 Laboratory Tests 04/06/19 04/06/19 04/06/19 08:00 08:00 08:00 WBC 4.2 RBC 4.06 Hgb 13.4 Hct 40.6 MCV 99.9 H MCH 32.9 MCHC 32.9 RDW 14.5 Plt Count 226 MPV 9.3 Sodium 146 H Potassium 4.8 Chloride 112 H Carbon Dioxide 30 Anion Gap 4 L BUN 13.6 Creatinine 1.2 Est GFR (CKD-EPI)AfAm 77.88 Est GFR (CKD-EPI)NonAf 67.19 Random Glucose 86 Calcium 8.8 Total Bilirubin 0.4 AST 47 H ALT 53 Alkaline Phosphatase 78 Total Protein 6.5 Albumin 3.4 RPR Titer Nonreactive HIV 1&2 Antibody Screen HIV P24 Antigen 04/06/19 08:00 WBC RBC Hgb Hct MCV MCH MCHC RDW Plt Count MPV Sodium Potassium Chloride Carbon Dioxide Anion Gap BUN Creatinine Est GFR (CKD-EPI)AfAm Est GFR (CKD-EPI)NonAf Random Glucose Calcium Total Bilirubin AST ALT Alkaline Phosphatase Total Protein Albumin RPR Titer HIV 1&2 Antibody Screen Negative HIV P24 Antigen Negative Labs reviewed Assessment: 04/06/19 18:27 Withdrawal sxs Plan: Continue detox Encouraged PO water intake
[2019-04-06] MEDS: THIAMINE HCL 100 MG TABLET (FP) PO SCH (22:24)
[2019-04-07] MEDS: LORazepam 1 MG TABLET PO SCH ×4 (07:05→22:07)
[2019-04-07] MEDS: PRENATAL VITAMINS W/ FOLIC ACID TABLET (FP) PO SCH (10:32)
[2019-04-07] MEDS: NICOTINE 21 MG/24 HOURS TOPICAL PATCH TD SCH (10:32)
--- NOTE | 2019-04-07 13:56 | PN ---
S CIWA - CIWA Score Nausea/Vomitin-No Nausea/No Vomiting Muscle Tremors: 3 Anxiety: 1-Mildly Anxious Agitation: 2 Paroxysmal Sweats: 2 Orientation: 0-Oriented Tacttile Disturbances: 0-None Auditory Disturbances: 0-None Visual Disturbances: 0-None Headache: 0-None Present CIWA-Ar Total Score: 8 BHS Progress Note (SOAP) Subjective: sweats shakes interrupted sleep body aches Objective: 04/07/19 13:56 Vital Signs Temperature 97.9 F 04/07/19 10:08 Pulse Rate 85 04/07/19 10:08 Respiratory Rate 18 04/07/19 10:08 Blood Pressure 106/60 04/07/19 10:08 O2 Sat by Pulse Oximetry (%) Laboratory Tests 04/06/19 04/06/19 04/06/19 08:00 08:00 08:00 WBC 4.2 RBC 4.06 Hgb 13.4 Hct 40.6 MCV 99.9 H MCH 32.9 MCHC 32.9 RDW 14.5 Plt Count 226 MPV 9.3 Sodium 146 H Potassium 4.8 Chloride 112 H Carbon Dioxide 30 Anion Gap 4 L BUN 13.6 Creatinine 1.2 Est GFR (CKD-EPI)AfAm 77.88 Est GFR (CKD-EPI)NonAf 67.19 Random Glucose 86 Calcium 8.8 Total Bilirubin 0.4 AST 47 H ALT 53 Alkaline Phosphatase 78 Total Protein 6.5 Albumin 3.4 RPR Titer Nonreactive HIV 1&2 Antibody Screen HIV P24 Antigen 04/06/19 08:00 WBC RBC Hgb Hct MCV MCH MCHC RDW Plt Count MPV Sodium Potassium Chloride Carbon Dioxide Anion Gap BUN Creatinine Est GFR (CKD-EPI)AfAm Est GFR (CKD-EPI)NonAf Random Glucose Calcium Total Bilirubin AST ALT Alkaline Phosphatase Total Protein Albumin RPR Titer HIV 1&2 Antibody Screen Negative HIV P24 Antigen Negative aaox3 ambulating no acute distress Assessment: 04/07/19 13:57 withdrawal sx Plan: continue detox increase fluids
[2019-04-07] MEDS: THIAMINE HCL 100 MG TABLET (FP) PO SCH (22:05)
[2019-04-08] MEDS ORDERED: LORazepam 0.5 MG TABLET PO PRN
[2019-04-08] MEDS: LORazepam 0.5 MG TABLET PO SCH ×3 (06:38→17:28)
[2019-04-08] MEDS: PRENATAL VITAMINS W/ FOLIC ACID TABLET (FP) PO SCH (10:28)
[2019-04-08] MEDS: NICOTINE 21 MG/24 HOURS TOPICAL PATCH TD SCH (10:28)
--- NOTE | 2019-04-08 10:49 | PN ---
S CIWA - CIWA Score Nausea/Vomitin-No Nausea/No Vomiting Muscle Tremors: 2 Anxiety: 1-Mildly Anxious Agitation: 1-Slight > Activity Paroxysmal Sweats: No Perspiration Orientation: 0-Oriented Tacttile Disturbances: 0-None Auditory Disturbances: 0-None Visual Disturbances: 0-None Headache: 0-None Present CIWA-Ar Total Score: 4 BHS Progress Note (SOAP) Subjective: feeling better little bit of sweats anxiety Objective: 04/08/19 10:48 Vital Signs Temperature 97.9 F 04/08/19 09:34 Pulse Rate 90 04/08/19 09:34 Respiratory Rate 18 04/08/19 09:34 Blood Pressure 109/60 04/08/19 09:34 O2 Sat by Pulse Oximetry (%) aaox3 ambulating no acute distress Assessment: 04/08/19 10:48 mild withdrawals Plan: continue detox as ordered increase fluids d/c in am
[2019-04-08] MEDS: THIAMINE HCL 100 MG TABLET (FP) PO SCH (22:22)
[2019-04-09] MEDS ORDERED: LORazepam 0.5 MG TABLET PO ONE (05:00)
[2019-04-09 07:13] VITALS: BP 132/84; PULSE 73; TEMP 97.9
--- NOTE | 2019-04-09 09:39 | DS ---
[facility] Detox Discharge Summary Admission Date: 04/05/19 Discharge Date: 04/09/19 - History Present History: Alcohol Dependence, Cannabis Dependence, Cocaine Dependence, Sedative Dependence - Physical Exam Results Vital Signs: Vital Signs Temperature 97.9 F 04/09/19 05:00 Pulse Rate 73 04/09/19 05:00 Respiratory Rate 18 04/09/19 05:00 Blood Pressure 132/84 04/09/19 05:00 O2 Sat by Pulse Oximetry (%) Pertinent Admission Physical Exam Findings: Vital Signs Temperature 97.9 F 04/09/19 05:00 Pulse Rate 73 04/09/19 05:00 Respiratory Rate 18 04/09/19 05:00 Blood Pressure 132/84 04/09/19 05:00 O2 Sat by Pulse Oximetry (%) Laboratory Tests 04/06/19 04/06/19 04/06/19 08:00 08:00 08:00 WBC 4.2 RBC 4.06 Hgb 13.4 Hct 40.6 MCV 99.9 H MCH 32.9 MCHC 32.9 RDW 14.5 Plt Count 226 MPV 9.3 Sodium 146 H Potassium 4.8 Chloride 112 H Carbon Dioxide 30 Anion Gap 4 L BUN 13.6 Creatinine 1.2 Est GFR (CKD-EPI)AfAm 77.88 Est GFR (CKD-EPI)NonAf 67.19 Random Glucose 86 Calcium 8.8 Total Bilirubin 0.4 AST 47 H ALT 53 Alkaline Phosphatase 78 Total Protein 6.5 Albumin 3.4 RPR Titer Nonreactive HIV 1&2 Antibody Screen HIV P24 Antigen 04/06/19 08:00 WBC RBC Hgb Hct MCV MCH MCHC RDW Plt Count MPV Sodium Potassium Chloride Carbon Dioxide Anion Gap BUN Creatinine Est GFR (CKD-EPI)AfAm Est GFR (CKD-EPI)NonAf Random Glucose Calcium Total Bilirubin AST ALT Alkaline Phosphatase Total Protein Albumin RPR Titer HIV 1&2 Antibody Screen Negative HIV P24 Antigen Negative aaox3 ambulating no acute distress - Treatment Hospital Course: Detox Protocol Followed, Detoxed Safely, Responded well, Discharged Condition Good, Rehab Referral Accepted Patient has Accepted a Rehab Referral to: declined rehab - Medication Discharge Medications: Ambulatory Orders NK [No Known Home Medication] 07/15/17 - Diagnosis (1) Alcohol dependence with uncomplicated withdrawal Status: Chronic (2) Cocaine dependence Status: Chronic Qualifiers: Substance use status: uncomplicated Qualified Code(s): F14.20 - Cocaine dependence, uncomplicated (3) History of fracture of pelvis Status: Acute (4) Insomnia Status: Acute (5) Nicotine dependence Status: Acute Qualifiers: Nicotine product type: cigarettes Substance use status: uncomplicated Qualified Code(s): F17.210 - Nicotine dependence, cigarettes, uncomplicated (6) Sedative, hypnotic or anxiolytic dependence, uncomplicated Status: Chronic (7) UTI (urinary tract infection) Status: Acute Qualifiers: Urinary tract infection type: catheter-associated UTI Indwelling urinary catheter type: unspecified Encounter type: subsequent encounter Qualified Code(s): T83.511D - Infection and inflammatory reaction due to indwelling urethral catheter, subsequent encounter; N39.0 - Urinary tract infection, site not specified; N39.0 - Urinary tract infection, site not specified (8) Weight loss Status: Acute (9) Alcohol dependence Status: Chronic Qualifiers: Substance use status: in withdrawal Complication of substance-induced condition: uncomplicated Qualified Code(s): F10.230 - Alcohol dependence with withdrawal, uncomplicated (10) Blind right eye Status: Chronic (11) Cannabis dependence Status: Chronic (12) Suprapubic catheter Status: Chronic (13) Anxiety Status: Suspected - AMA Did Patient Leave Against Medical Advice: No
== END 2019-04-09 07:30 | disposition home or self-care (01) | DRG 774 ==
LOC: YASAS 10:14 → Y6N 12:11
PROVIDERS: ADMIT Allergy & Immunology; ATTEND Allergy & Immunology
PROC: HZ2ZZZZ Detoxification Services for Substance Abuse Treatment (ICD-10-PCS; principal; 2019-04-05)
DX: F10.230 Alcohol dependence with withdrawal, uncomplicated (principal); F13.230 Sedative, hypnotic or anxiolytic dependence with withdrawal, uncomplicated; F14.20 Cocaine dependence, uncomplicated; F12.20 Cannabis dependence, uncomplicated; F17.210 Nicotine dependence, cigarettes, uncomplicated; G47.00 Insomnia, unspecified; R63.4 Abnormal weight loss; H54.40 Blindness, one eye, unspecified eye; N39.0 Urinary tract infection, site not specified; T83.511D Infection and inflammatory reaction due to indwelling urethral catheter, subsequent encounter; Y73.8 Miscellaneous gastroenterology and urology devices associated with adverse incidents, not elsewhere classified; Z93.6 Other artificial openings of urinary tract status; Z93.50 Unspecified cystostomy status
CPT/HCPCS: 36415; 80053; 85027; 86593; 87389

== ENCOUNTER 2019-12-26 12:25 | Inpatient (IN) | payer OTHER ==
--- NOTE | 2019-12-26 12:54 | BHS.RME ---
Substance Use & Tx History - Substance Use History Alcohol Substance amount: 1 seda martinez Frequency of use: Daily Substance route: Oral Date of Last Use: 12/25/19 Cocaine- Powder Substance amount: 1 gram Frequency of use: Daily Substance route: Inhalation (ex: sniffing or snorting) Date of Last Use: 12/25/19 Nicotine Substance amount: 1 pack Frequency of use: Daily Substance route: Smoking Date of Last Use: 12/26/19 Physical/Psych/Mental Status - Behavior General Behavior: Increased activity (restlessness, agitation) Eye Contact: Normal - Cooperativeness Cooperativeness: Cooperative - Thinking Thought Processes: Tight, Logical, Goal Directed - Physical Health Problems Is patient presently having any pain?: No Does patient presently have any injuries (include location): No Does patient currently have a fever: No Is patient : No CIWA Nausea/Vomitin-Mild Nausea/No Vomiting Muscle Tremors: 4-Moderate,w/Arms Extend Anxiety: 3 Agitation: 3 Paroxysmal Sweats: 4-Forehead w/Sweat Beads Orientation: 0-Oriented Tacttile Disturbances: 0-None Auditory Disturbances: 0-None Visual Disturbances: 0-None Headache: 2-Mild CIWA-Ar Total Score: 17
[2019-12-26 15:04] VITALS: BMI 19.2
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
[2019-12-26] MEDS ORDERED: MENTHOL/PHENOL 1 EACH UD MM PRN (15:24)
[2019-12-26] MEDS ORDERED: ONDANSETRON *ODT* 4 MG TABLET SL PRN (15:24)
[2019-12-26] MEDS ORDERED: LORazepam 1 MG TABLET PO PRN (15:24)
[2019-12-26] MEDS ORDERED: MAG HYDROX/AL HYDROX/SIMETH 30 ML UNIT-DOSE CUP PO PRN (15:24)
[2019-12-26] MEDS ORDERED: ACETAMINOPHEN 325 MG TABLET (FP) PO PRN ×2 (15:24)
[2019-12-26] MEDS ORDERED: METHOCARBAMOL 500 MG TABLET PO PRN (15:24)
[2019-12-26] MEDS ORDERED: BISMUTH SUBSALICYLATE 524 MG/30 ML UD PO PRN (15:24)
[2019-12-26] MEDS ORDERED: NICOTINE POLACRILEX 2 MG GUM BUC PRN (15:24)
[2019-12-26] MEDS ORDERED: MAGNESIUM HYDROX 2400MG/30ML ORAL SUSPENSION 30 ML CUP PO PRN (15:24)
[2019-12-26] MEDS ORDERED: IBUPROFEN 400 MG TABLET (FP) PO PRN (15:24)
[2019-12-26] MEDS ORDERED: MAGNESIUM CITRATE 300 ML BOTTLE PO PRN (15:24)
[2019-12-26] MEDS ORDERED: hydrOXYzine PAMOATE 25 MG CAPSULE (FP) PO PRN (15:32)
[2019-12-26] MEDS: LORazepam 2 MG TABLET PO SCH ×2 (17:08→23:37)
[2019-12-26] MEDS: NICOTINE 21 MG/24 HOURS TOPICAL PATCH TD SCH (17:08)
[2019-12-26] MEDS ORDERED: hydrOXYzine PAMOATE 25 MG CAPSULE (FP) PO SCH (18:00)
[2019-12-26] MEDS: THIAMINE HCL 100 MG TABLET (FP) PO SCH (23:38)
[2019-12-26] MEDS: MELATONIN 5 MG TABLETS PO SCH (23:40)
[2019-12-27] MEDS: LORazepam 2 MG TABLET PO SCH ×4 (06:57→23:19)
[2019-12-27 10:14] LABS: HEMATOCRIT 44.6 % (35.4-49); HEMOGLOBIN 14.9 GM/dL (11.7-16.9); MCH 32.9 pg (25.7-33.7); MCHC 33.4 g/dl (32.0-35.9); MEAN CELL VOLUME 98.5 fl (80-96); MEAN PLT VOLUME 9.3 fl (7.5-11.1); PLATELET COUNT 211 K/MM3 (134-434); RBC 4.53 M/mm3 (4.00-5.60); RDW 14.5 % (11.9-15.9); WHITE BLOOD COUNT 4.9 K/mm3 (4.0-10.0)
[2019-12-27 10:24] LABS: BLOOD UREA NITROGEN 13.6 mg/dL (7-18); CREATININE 1.4 mg/dL (0.55-1.3)
[2019-12-27 10:25] LABS: ALBUMIN 3.4 g/dl (3.4-5.0); BILIRUBIN,TOTAL 0.8 mg/dL (0.2-1); POTASSIUM 4.2 mmol/L (3.5-5.1); TOT PROT 6.9 g/dl (6.4-8.2)
[2019-12-27] MEDS: NICOTINE 21 MG/24 HOURS TOPICAL PATCH TD SCH (11:06)
[2019-12-27] MEDS: PRENATAL VITAMINS W/ FOLIC ACID TABLET (FP) PO SCH (11:06)
--- NOTE | 2019-12-27 11:43 | PN ---
[facility] CIWA - CIWA Score Nausea/Vomitin-No Nausea/No Vomiting Muscle Tremors: 3 Anxiety: 3 Agitation: 2 Paroxysmal Sweats: 2 Orientation: 0-Oriented Tacttile Disturbances: 0-None Auditory Disturbances: 0-None Visual Disturbances: 2-Mild Sensitivity Headache: 0-None Present CIWA-Ar Total Score: 12 S Progress Note (SOAP) Subjective: Complaints of tremors, anxiety, sweats, agitation and light sensitivity. Objective: 12/27/19 11:44 Vital Signs 12/27/19 12/27/19 05:45 09:05 Temperature 96.1 F L 99.3 F Pulse Rate 63 130 H Respiratory 20 19 Rate Blood Pressure 123/60 115/55 L O2 Sat by Pulse 95 95 Oximetry (%) Laboratory Last Values WBC 4.9 K/mm3 (4.0-10.0) 12/27/19 07:25 RBC 4.53 M/mm3 (4.00-5.60) 12/27/19 07:25 Hgb 14.9 GM/dL (11.7-16.9) 12/27/19 07:25 Hct 44.6 % (35.4-49) 12/27/19 07:25 MCV 98.5 fl (80-96) H 12/27/19 07:25 MCH 32.9 pg (25.7-33.7) 12/27/19 07:25 MCHC 33.4 g/dl (32.0-35.9) 12/27/19 07:25 RDW 14.5 % (11.9-15.9) 12/27/19 07:25 Plt Count 211 K/MM3 (134-434) 12/27/19 07:25 MPV 9.3 fl (7.5-11.1) 12/27/19 07:25 Sodium 146 mmol/L (136-145) H 12/27/19 07:25 Potassium 4.2 mmol/L (3.5-5.1) 12/27/19 07:25 Chloride 112 mmol/L (98-107) H 12/27/19 07:25 Carbon Dioxide 29 mmol/L (21-32) 12/27/19 07:25 Anion Gap 5 MMOL/L (8-16) L 12/27/19 07:25 BUN 13.6 mg/dL (7-18) 12/27/19 07:25 Creatinine 1.4 mg/dL (0.55-1.3) H 12/27/19 07:25 Est GFR (CKD-EPI)AfAm 64.18 12/27/19 07:25 Est GFR (CKD-EPI)NonAf 55.38 12/27/19 07:25 Random Glucose 82 mg/dL (74-106) 12/27/19 07:25 Calcium 9.0 mg/dL (8.5-10.1) 12/27/19 07:25 Total Bilirubin 0.8 mg/dL (0.2-1) 12/27/19 07:25 AST 32 U/L (15-37) 12/27/19 07:25 ALT 27 U/L (13-61) 12/27/19 07:25 Alkaline Phosphatase 94 U/L (45-117) 12/27/19 07:25 Total Protein 6.9 g/dl (6.4-8.2) 12/27/19 07:25 Albumin 3.4 g/dl (3.4-5.0) 12/27/19 07:25 Syphilis Serology Reactive (NONREACTIVE) A* 12/27/19 07:25 Labs noted. Assessment: 12/27/19 11:45 Alert and oriented x 3, in no acute respiratory distress. Full ROM, ambulating in unit without assistance. Skin warm to touch without any lesions. Withdrawal symptoms. Fever ( 100.4) latest, refused to go to the ED for evaluation. Stating " i just need to drink more fluid." 12/27/19 14:44 12/27/19 14:45 Plan: Continue detox protocol. Fluid intake.
--- NOTE | 2019-12-27 19:28 | PN ---
[facility] Progress Note Note: Patient seen this evening for fever, as per staff, fever started this afternoon. Patient is in detox for alcohol withdrawal. He reports chills, has mild SOB which he attributes to emphysema even though that is not documented in his medical history, denies chest pain, N/V PMHx: Emphysema PSurgHx: Cystectomy, reversed Vital Signs - 24 hr 12/26/19 12/27/19 12/27/19 21:04 05:45 09:05 Temperature 97.9 F 96.1 F L 99.3 F Pulse Rate 78 63 130 H Respiratory 18 20 19 Rate Blood Pressure 110/60 123/60 115/55 L O2 Sat by Pulse 99 95 95 Oximetry (%) 12/27/19 12/27/19 12/27/19 11:51 12:20 13:05 Temperature 104.3 F H 103.1 F H 100.4 F H Pulse Rate 104 H 112 H Respiratory 18 19 Rate Blood Pressure 132/79 106/58 L O2 Sat by Pulse 95 Oximetry (%) 12/27/19 12/27/19 12/27/19 14:18 16:45 18:54 Temperature 100.4 F H 101.5 F H 100.2 F H Pulse Rate 84 97 H Respiratory 22 H 22 H Rate Blood Pressure 112/70 107/64 O2 Sat by Pulse 95 99 91 L Oximetry (%) PE General Appearance: Weak and frail appearing HEENT: NC/AT, sclera clear, no conjunctivitis, oral mucosa moist and pink with no visible lesions Chest: Lungs clear, decreased in the base CVS:Tachycardia, regular Abdomen: BS x 4, non-tender, non-distended, well healed abdominal scar Ext: No cyanosis Skin: Normal color A/P Fever-Transfer to ED for further evaluation
[2019-12-27] MEDS: MELATONIN 5 MG TABLETS PO SCH (23:19)
[2019-12-27] MEDS: THIAMINE HCL 100 MG TABLET (FP) PO SCH (23:19)
--- NOTE | 2019-12-28 05:18 | PN ---
[facility] Progress Note Note: hospital return Vital Signs Temperature 97.3 F L 12/28/19 05:11 Pulse Rate 83 12/28/19 05:11 Respiratory Rate 16 12/28/19 05:11 Blood Pressure 120/72 12/28/19 05:11 O2 Sat by Pulse Oximetry (%) 95 12/28/19 05:11 AFEBRILE. DENIES C/O. NEGATIVE ER WORK UP FOR FEVER. A- ETOH DEPENDENCE P- C/W [facility] DETOX ED Treatment Course - LABORATORY CBC & Chemistry Diagram: 12/28/19 02:15 12/28/19 02:15 Medical Decision Making - Medical Decision Making 12/27/19 20:55 59 yo M pmh alcohol/cocaine/tobacco abuse, emphysema, presenting from [facility] with several hours of fever, and episode of hypoxia. History notable for ETOH detox, recently negative COVID swab, fever today with hypoxia. Exam non-focal with fever resolution with Tylenol. Concerning for fever of unclear origin, will obtain broad workup to evaluate for metabolic, electrolytes, occult infection. - Sepsis workup - 1L NS to start 12/28/19 03:27 Labs entirely unremarkable Patient resting comfortably in the department CXR unremarkable EKG wnl Sat 96% on room air No urinary symptoms or abdominal tenderness Dispo: Return to [facility] for Detox Discharge - Discharge Information Problems reviewed: Yes Clinical Impression/Diagnosis: Fever and chills Condition: Stable - Admission No - Follow up/Referral - Patient Discharge Instructions Additional Instructions: Please return to [facility] for continued Detox. Best of luck with your recovery. - Post Discharge Activity
[2019-12-28] MEDS: LORazepam 1 MG TABLET PO SCH ×4 (06:11→23:06)
[2019-12-28] MEDS: NICOTINE 21 MG/24 HOURS TOPICAL PATCH TD SCH (10:51)
[2019-12-28] MEDS: PRENATAL VITAMINS W/ FOLIC ACID TABLET (FP) PO SCH (10:51)
--- NOTE | 2019-12-28 10:56 | PN ---
S CIWA - CIWA Score Nausea/Vomitin-No Nausea/No Vomiting Muscle Tremors: 2 Anxiety: 2 Agitation: 2 Paroxysmal Sweats: 2 Orientation: 0-Oriented Tacttile Disturbances: 0-None Auditory Disturbances: 0-None Visual Disturbances: 0-None Headache: 0-None Present CIWA-Ar Total Score: 8 S Progress Note (SOAP) Subjective: Complaints of anxiety, chills, tremors and sweats. Objective: 12/28/19 10:54 Vital Signs 12/28/19 05:11 Temperature 97.3 F L Pulse Rate 83 Respiratory 16 Rate Blood Pressure 120/72 O2 Sat by Pulse 95 Oximetry (%) Laboratory Last Values WBC 4.9 K/mm3 (4.0-10.0) 12/27/19 07:25 RBC 4.53 M/mm3 (4.00-5.60) 12/27/19 07:25 Hgb 14.9 GM/dL (11.7-16.9) 12/27/19 07:25 Hct 44.6 % (35.4-49) 12/27/19 07:25 MCV 98.5 fl (80-96) H 12/27/19 07:25 MCH 32.9 pg (25.7-33.7) 12/27/19 07:25 MCHC 33.4 g/dl (32.0-35.9) 12/27/19 07:25 RDW 14.5 % (11.9-15.9) 12/27/19 07:25 Plt Count 211 K/MM3 (134-434) 12/27/19 07:25 MPV 9.3 fl (7.5-11.1) 12/27/19 07:25 Sodium 146 mmol/L (136-145) H 12/27/19 07:25 Potassium 4.2 mmol/L (3.5-5.1) 12/27/19 07:25 Chloride 112 mmol/L (98-107) H 12/27/19 07:25 Carbon Dioxide 29 mmol/L (21-32) 12/27/19 07:25 Anion Gap 5 MMOL/L (8-16) L 12/27/19 07:25 BUN 13.6 mg/dL (7-18) 12/27/19 07:25 Creatinine 1.4 mg/dL (0.55-1.3) H 12/27/19 07:25 Est GFR (CKD-EPI)AfAm 64.18 12/27/19 07:25 Est GFR (CKD-EPI)NonAf 55.38 12/27/19 07:25 Random Glucose 82 mg/dL (74-106) 12/27/19 07:25 Calcium 9.0 mg/dL (8.5-10.1) 12/27/19 07:25 Total Bilirubin 0.8 mg/dL (0.2-1) 12/27/19 07:25 AST 32 U/L (15-37) 12/27/19 07:25 ALT 27 U/L (13-61) 12/27/19 07:25 Alkaline Phosphatase 94 U/L (45-117) 12/27/19 07:25 Total Protein 6.9 g/dl (6.4-8.2) 12/27/19 07:25 Albumin 3.4 g/dl (3.4-5.0) 12/27/19 07:25 Syphilis Serology Reactive (NONREACTIVE) A* 12/27/19 07:25 RPR Titer Reactive 1:1 (NONREACTIVE) H D 12/27/19 07:25 COVID-19 (ERIN) Not detected (Not Detected) 12/26/19 15:30 Labs noted with reactive syphilis serology. Assessment: 12/28/19 10:55 Alert and oriented x 3, in no acute respiratory distress. Full ROM, ambulatory in unit without any assistance. Skin warm to touch without any lesions. Withdrawal symptoms. Reactive syphilis serology ( will follow up his doctor when discharged.). 12/28/19 13:13 Plan: Continue detox protocol.
[2019-12-28] MEDS: THIAMINE HCL 100 MG TABLET (FP) PO SCH (23:05)
[2019-12-28] MEDS: MELATONIN 5 MG TABLETS PO SCH (23:05)
[2019-12-29] MEDS ORDERED: LORazepam 0.5 MG TABLET PO PRN
[2019-12-29] MEDS: LORazepam 0.5 MG TABLET PO SCH ×4 (06:26→23:04)
--- NOTE | 2019-12-29 11:38 | PN ---
S CIWA - CIWA Score Nausea/Vomitin-No Nausea/No Vomiting Muscle Tremors: None Anxiety: 2 Agitation: 0-Normal Activity Paroxysmal Sweats: 2 Orientation: 0-Oriented Tacttile Disturbances: 0-None Auditory Disturbances: 0-None Visual Disturbances: 0-None Headache: 1-Very Mild CIWA-Ar Total Score: 5 [facility] Progress Note (SOAP) Subjective: c/o mild withdrawal symptoms. Objective: 12/29/19 11:37 Vital Signs 12/29/19 05:28 Temperature 99.5 F Pulse Rate 79 Respiratory 20 Rate Blood Pressure 125/81 O2 Sat by Pulse 100 Oximetry (%) Assessment: 12/29/19 11:37 AOX3, in no acute respiratory distress. Full ROM, ambulating in the unit. Mild Withdrawal symptoms. For d/c tomorrow. Plan: continue detox. D/C in AM.
[2019-12-29] MEDS: PRENATAL VITAMINS W/ FOLIC ACID TABLET (FP) PO SCH (15:18)
[2019-12-29] MEDS: NICOTINE 21 MG/24 HOURS TOPICAL PATCH TD SCH (15:18)
[2019-12-29] MEDS: MELATONIN 5 MG TABLETS PO SCH (23:04)
[2019-12-29] MEDS: THIAMINE HCL 100 MG TABLET (FP) PO SCH (23:04)
[2019-12-30] MEDS ORDERED: LORazepam 0.5 MG TABLET PO ONE (05:00)
--- NOTE | 2019-12-30 09:11 | DS ---
[facility] Detox Discharge Summary Admission Date: 12/26/19 Discharge Date: 12/30/19 - History Present History: Alcohol Dependence, Cannabis Dependence, Cocaine Dependence, Sedative Dependence - Physical Exam Results Vital Signs: Vital Signs Temperature 98.2 F 12/30/19 05:59 Pulse Rate 64 12/30/19 05:59 Respiratory Rate 18 12/30/19 05:59 Blood Pressure 121/74 12/30/19 05:59 O2 Sat by Pulse Oximetry (%) 95 12/30/19 05:59 Pertinent Admission Physical Exam Findings: Vital Signs Temperature 98.2 F 12/30/19 05:59 Pulse Rate 64 12/30/19 05:59 Respiratory Rate 18 12/30/19 05:59 Blood Pressure 121/74 12/30/19 05:59 O2 Sat by Pulse Oximetry (%) 95 12/30/19 05:59 Laboratory Tests 12/26/19 12/27/19 12/27/19 15:30 07:25 07:25 WBC 4.9 RBC 4.53 Hgb 14.9 Hct 44.6 MCV 98.5 H MCH 32.9 MCHC 33.4 RDW 14.5 Plt Count 211 MPV 9.3 Sodium Potassium Chloride Carbon Dioxide Anion Gap BUN Creatinine Est GFR (CKD-EPI)AfAm Est GFR (CKD-EPI)NonAf Random Glucose Calcium Total Bilirubin AST ALT Alkaline Phosphatase Total Protein Albumin Syphilis Serology Reactive A* RPR Titer COVID-19 (ERIN) Not detected 12/27/19 12/27/19 07:25 07:25 WBC RBC Hgb Hct MCV MCH MCHC RDW Plt Count MPV Sodium 146 H Potassium 4.2 Chloride 112 H Carbon Dioxide 29 Anion Gap 5 L BUN 13.6 Creatinine 1.4 H Est GFR (CKD-EPI)AfAm 64.18 Est GFR (CKD-EPI)NonAf 55.38 Random Glucose 82 Calcium 9.0 Total Bilirubin 0.8 AST 32 ALT 27 Alkaline Phosphatase 94 Total Protein 6.9 Albumin 3.4 Syphilis Serology RPR Titer Reactive 1:1 H D COVID-19 (ERIN) aaox3 ambulating no acute distress - Treatment Hospital Course: Detox Protocol Followed, Detoxed Safely, Responded well, Discharged Condition Good, Rehab Referral Accepted - Medication Discharge Medications: Ambulatory Orders NK [No Known Home Medication] 07/15/17 - Diagnosis (1) Alcohol dependence with uncomplicated withdrawal Current Visit: Yes Status: Chronic (2) Nicotine dependence Current Visit: Yes Status: Chronic Qualifiers: Nicotine product type: cigarettes Substance use status: uncomplicated Qualified Code(s): F17.210 - Nicotine dependence, cigarettes, uncomplicated (3) History of fracture of pelvis Current Visit: No Status: Acute (4) Insomnia Current Visit: No Status: Acute (5) Weight loss Current Visit: No Status: Acute (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
[2019-12-30] MEDS: PRENATAL VITAMINS W/ FOLIC ACID TABLET (FP) PO SCH (11:23)
[2019-12-30] MEDS: NICOTINE 21 MG/24 HOURS TOPICAL PATCH TD SCH (11:23)
[2019-12-30 13:04] VITALS: BP 143/81; PULSE 71; TEMP 98.1
== END 2019-12-30 14:44 | disposition other institution (70) | DRG 774 ==
LOC: YASAS 12:25 → Y6N 15:01
PROVIDERS: ADMIT Allergy & Immunology; ATTEND Allergy & Immunology
PROC: HZ2ZZZZ Detoxification Services for Substance Abuse Treatment (ICD-10-PCS; principal; 2019-12-26)
DX: F10.230 Alcohol dependence with withdrawal, uncomplicated (principal); F13.20 Sedative, hypnotic or anxiolytic dependence, uncomplicated; F14.20 Cocaine dependence, uncomplicated; F12.20 Cannabis dependence, uncomplicated; F17.210 Nicotine dependence, cigarettes, uncomplicated; F41.9 Anxiety disorder, unspecified; G47.00 Insomnia, unspecified; H54.61 Unqualified visual loss, right eye, normal vision left eye; J43.9 Emphysema, unspecified; R50.9 Fever, unspecified; Z96.0 Presence of urogenital implants; Z87.81 Personal history of (healed) traumatic fracture
CPT/HCPCS: 36415; 80053; 85027; 86593; 86780; U0003

== ENCOUNTER 2019-12-27 20:04 | Emergency (ER) | payer OTHER ==
[2019-12-27 20:09] VITALS: BMI 22.1
--- NOTE | 2019-12-27 20:31 | PDOC ---
History of Present Illness - General Chief Complaint: Cold Symptoms Stated Complaint: FEVER/SOB Time Seen by Provider: 12/27/19 20:28 History Source: Patient, EMS, Old Records Exam Limitations: No Limitations - History of Present Illness Initial Comments: 12/27/19 20:28 HPI: 59 yo M pmh alcohol/cocaine/tobacco abuse, emphysema, presenting from [facility] with several hours of fever, and episode of hypoxia. Patient swabbed for COVID yesterday, negative. Labs this morning unremarkable. Now resting comfortably in bed with sat 100% on 3L NC. Given Tylenol prior to arriv al with defervescence. Endorses chills and mild SOB, otherwise denying chest pain, nausea, vomiting, subjective fevers, abdominal pain, diarrhea, constipation, dysuria. On review of patient's chart, mild hypernatremia, mild JESSICA, possibly 2/2 dehydration. All: NDKA PMH: Emphysema PSH: Cystectomy, reversed SHx: ETOH abuse Past History - Travel History Traveled outside of the country in the last 30 days: No Close contact w/someone who was outside of country & ill: No - Medical History Allergies/Adverse Reactions: Allergies Allergy/AdvReac Type Severity Reaction Status Date / Time No Known Allergies Allergy Verified 12/27/19 20:09 Home Medications: Ambulatory Orders NK [No Known Home Medication] 07/15/17 Anemia: No Asthma: No Cancer: No Cardiac Disorders: No CVA: No COPD: No CHF: No Dementia: No Diabetes: No GI Disorders: No Disorders: Yes HTN: No Hypercholesterolemia: No Kidney Stones: No Liver Disease: No Seizures: No Thyroid Disease: No - Surgical History Abdominal Surgery: No Appendectomy: No Cardiac Surgery: No Cholecystectomy: No Lung Surgery: No Neurologic Surgery: No Orthopedic Surgery: No - Reproductive History Testicular Surgery: No - Psycho-Social/Smoking History Smoking History: Current some day smoker Have you smoked in the past 12 months: Yes Number of Cigarettes Smoked Daily: 12 Cigars Per Day: 0 Information on smoking cessation initiated: No 'Breaking Loose' booklet given: 12/26/19 - Substance Abuse Hx (Audit-C & DAST Scrn) How often the patient has a drink containing alcohol: 2-4 times / month Number of drinks the patient has on a typical day: 5 or 6 Score: In Men: 4 or > Positive; In Women: 3 or > Positive: 4 Screen Result (Pos requires Nsg. Audit-10AR): Positive In the last yr the pt used illegal drug/Rx for NonMed reason: No Score: Yes response is considered Positive: 0 Screen Result (Positive result requires Nsg. DAST-10): Negative Review of Systems - Review of Systems Able to Perform ROS?: Yes Is the patient limited [place] Islander proficient: Yes Constitutional: Yes: Fever. No: Chills, Weight Stable HEENTM: No: Recent change in vision, Nose Congestion, Throat Pain Respiratory: Yes: Shortness of Breath. No: Cough, Wheezing Cardiac (ROS): No: Chest Pain, Edema, Irregular Heart Rate, Chest Tightness ABD/GI: No: Constipated, Diarrhea, Nausea, Vomiting : No: Burning, Dysuria, Frequency Musculoskeletal: No: Muscle Pain, Muscle Weakness, Neck Pain Integumentary: No: Bruising, Pruritus, Rash Neurological: No: Headache, Numbness, Tingling, Weakness Psychiatric: No: Stressors, Change in Appetite Endocrine: No: Increased Thirst, Increased Urine, Change in Weight Hematologic/Lymphatic: No: Anemia, Blood Clots, Easy Bleeding All Other Systems: Reviewed and Negative *Physical Exam - Vital Signs Last Vital Signs Temp Pulse Resp BP Pulse Ox 99.5 F 96 H 20 112/68 98 12/27/19 20:07 12/27/19 20:07 12/27/19 20:07 12/27/19 20:07 12/27/19 20:07 - Physical Exam 12/27/19 20:29 Vitals reviewed, T 99.5F s/p Tylenol GEN: Lethargic, appears stated age, NAD, comfortable. AAOx3 but intermittent basketball references. HEENT: NCAT, EOMI, PERRL. Sclera anicteric, non-injected. No facial asymmetry. Moist mucous membranes. Trachea midline. CV: RRR, S1/S2, no murmurs / rubs / gallops appreciated. LUNG: CTABL, normal work of breathing. No wheezes, rales, rhonchi. No cough. GI: Soft, NTND, +BS, no guarding, no rebound. No masses. EXTREMITIES: 2+ distal pulses. No clubbing / cyanosis / edema. No gross deformity in any extremity. SKIN: Warm, dry, no rashes appreciated, non-jaundiced. PSYCH: Normal mood and affect. Cooperative and appropriate. NEURO: CN grossly intact. Moving all extremities well. Normal strength and sensation grossly. ED Treatment Course - LABORATORY CBC & Chemistry Diagram: 12/28/19 02:15 12/28/19 02:15 Medical Decision Making - Medical Decision Making 12/27/19 20:55 59 yo M pmh alcohol/cocaine/tobacco abuse, emphysema, presenting from [facility] facility with several hours of fever, and episode of hypoxia. History notable for ETOH detox, recently negative COVID swab, fever today with hypoxia. Exam non-focal with fever resolution with Tylenol. Concerning for fever of unclear origin, will obtain broad workup to evaluate for metabolic, electrolytes, occult infection. - Sepsis workup - 1L NS to start 12/28/19 03:27 Labs entirely unremarkable Patient resting comfortably in the department CXR unremarkable EKG wnl Sat 96% on room air No urinary symptoms or abdominal tenderness Dispo: Return to [facility] for Detox Discharge - Discharge Information Problems reviewed: Yes Clinical Impression/Diagnosis: Fever and chills Condition: Stable - Admission No - Follow up/Referral - Patient Discharge Instructions Additional Instructions: Please return to [facility] for continued Detox. Best of luck with your recovery. - Post Discharge Activity
[2019-12-27] MEDS ORDERED: SODIUM CHLORIDE 0.9% 500 ML INFUS.BAG IV ONE (20:44)
--- NOTE | 2019-12-27 21:44 | PDOC ---
Documentation entered by Amber Oliver SCRIBE, acting as scribe for Mak Waddell MD. Mak Waddell MD: This documentation has been prepared by the scribe, Amber Oliver SCRIBE, under my direction and personally reviewed by me in its entirety. I confirm that the documentation accurately reflects all work, treatment, procedures, and medical decision making performed by me. Attending Attestation - Resident Resident Name: Luis Alberto Cardona - ED Attending Attestation I have performed the following: I have examined & evaluated the patient, The case was reviewed & discussed with the resident, I agree w/resident's findings & plan, Exceptions are as noted - HPI HPI: 12/27/19 20:37 Patient is a 59 year old male with a significant past medical history of alcohol abuse and emphysema, who presents to the ED, from [facility], with fever and hypoxia since earlier today. Patient was given Tylenol prior to ED arrival. Patient endorses: chills and mild SOB. Patient denies: subjective fevers, nausea, vomiting, chest pain, abdominal pain, diarrhea, constipation, dysuria, or any other related symptoms. Allergies: NKDA - Physicial Exam PE: 12/27/19 21:43 GENERAL: The patient is awake, alert, and fully oriented, Nontoxic - in no acute distress. HEAD: Normocephalic, atraumatic. EYES: extraocular movements intact, sclera anicteric, conjunctiva clear. ENT: Normal voice, Moist mucous membranes. NECK: Normal range of motion, supple, Negative Kernig's, negative presents LUNGS: Breath sounds equal, clear to auscultation bilaterally. No wheezes, no rhonchi, no rales. HEART: Regular rate and rhythm, normal S1 and S2 without murmur, rub or gallop. ABDOMEN: Soft, nontender, No guarding, no rebound. No CVA tenderness EXTREMITIES: Normal range of motion, no edema. NEUROLOGICAL: No facial assymetry, Normal speech, PSYCH: Normal mood, normal affect. SKIN: Warm, Dry, normal turgor, - Medical Decision Making 12/27/19 21:44 Differential for the patient's symptoms includes possible pneumonia, Patient tested negative for COVID 2 days ago Possible UTI Episodes are obtained, will pursue because of the patient's fever Discharge - Discharge Information Problems reviewed: Yes Clinical Impression/Diagnosis: Fever and chills Condition: Stable - Follow up/Referral - Patient Discharge Instructions Additional Instructions: Please return to [facility] for continued Detox. Best of luck with your recovery. - Post Discharge Activity
[2019-12-28 02:54] LABS: BASO % 0.5 % (0-2.0); EOS % 2.3 % (0-4.5); HEMATOCRIT 43.9 % (35.4-49); HEMOGLOBIN 14.6 GM/dL (11.7-16.9); LYMPH % 14.2 % (8-40); MCH 32.5 pg (25.7-33.7); MCHC 33.3 g/dl (32.0-35.9); MEAN CELL VOLUME 97.6 fl (80-96); MONO % 4.7 % (3.8-10.2); NEUT % 78.3 % (42.8-82.8); PLATELET COUNT 203 K/MM3 (134-434); RBC 4.49 M/mm3 (4.00-5.60); RDW 14.4 % (11.9-15.9); WHITE BLOOD COUNT 7.9 K/mm3 (4.0-10.0)
[2019-12-28 03:02] LABS: INR 1.06 (0.83-1.09); PROTHROMBIN TIME (PATIENT) 12.5 SEC (9.7-13.0)
[2019-12-28 03:05] LABS: ACTIVATED PTT 35.9 SECONDS (25.2-36.5)
--- NOTE | 2019-12-28 03:10 | PDOC ---
*Physical Exam - Vital Signs Last Vital Signs Temp Pulse Resp BP Pulse Ox 98.6 F 71 20 140/60 96 12/28/19 02:28 12/28/19 02:28 12/28/19 02:28 12/28/19 02:28 12/28/19 02:28 Heart Score/ECG Review - ECG Intrepretation Rhythm: Regular Rhythm - [place]: Normal - P and AL Prominent R with upright T in V1 (true posterior ME): No Delta Wave(s) Present: No WPW: No - QRS Poor R Wave Progression: No Q Wave Present: No - ST and T Early Repolarization: No Non Specific ST-T Wave changes: Yes Flattened T Waves: No Prolonged Q-T Interval: No - ECG Impressions Normal ECG: Yes Non-specific ST Elevation: No Ischemic Changes: No Bradycardia: No Torsades manju Pointes: No ED Treatment Course - LABORATORY CBC & Chemistry Diagram: 12/28/19 02:15 12/28/19 02:15 - ADDITIONAL ORDERS Additional order review: Laboratory Results 12/28/19 02:15 PT with INR 12.50 INR 1.06 PTT (Actin FS) 35.9 12/28/19 02:15 RBC 4.49 MCV 97.6 H MCHC 33.3 RDW 14.4 MPV 9.0 Neutrophils % 78.3 Lymphocytes % 14.2 Monocytes % 4.7 Eosinophils % 2.3 Basophils % 0.5 - Medications Given in the ED: ED Medications Discontinued Medications Generic Name Dose Route Start Last Admin Trade Name Freq PRN Reason Stop Dose Admin Sodium Chloride 1,000 ml 12/27/19 20:44 12/28/19 03:08 Normal Saline - IV 12/27/19 20:45 Not Given ONCE ONE Medical Decision Making - Medical Decision Making 12/28/19 04:04 Pt signed out to us. Pt has normal labs and is ready to go back to [facility]. Discharge - Discharge Information Problems reviewed: Yes Clinical Impression/Diagnosis: Fever and chills Condition: Stable - Follow up/Referral - Patient Discharge Instructions Additional Instructions: Please return to [facility] for continued Detox. Best of luck with your recovery. - Post Discharge Activity
[2019-12-28 03:15] LABS: ALBUMIN 3.4 g/dl (3.4-5.0); BILIRUBIN,TOTAL 0.5 mg/dL (0.2-1); BLOOD UREA NITROGEN 11.8 mg/dL (7-18); CALCIUM 8.9 mg/dL (8.5-10.1); CREATININE 1.3 mg/dL (0.55-1.3); POTASSIUM 3.5 mmol/L (3.5-5.1); TOT PROT 7.1 g/dl (6.4-8.2)
[2019-12-28 04:19] VITALS: BP 123/82; PULSE 67; TEMP 98.5
--- NOTE | 2019-12-28 12:41 | EKG ---
Test Reason : Blood Pressure : / mmHG Vent. Rate : 073 BPM Atrial Rate : 073 BPM P-R Int : 164 ms QRS Dur : 076 ms QT Int : 382 ms P-R-T Axes : 066 034 014 degrees QTc Int : 420 ms NORMAL SINUS RHYTHM SEPTAL INFARCT (CITED ON OR BEFORE 20-JAN-2017) ABNORMAL ECG WHEN COMPARED WITH ECG OF 22-AUG-2017 15:44, QUESTIONABLE CHANGE IN INITIAL FORCES OF ANTEROSEPTAL LEADS Confirmed by Giorgi Vann ([id number]) on 12/28/2019 12:40:59 PM Referred By: Confirmed By:Giorgi Vann
== END 2019-12-28 04:51 | disposition home or self-care (01) ==
LOC: JER 20:04
DX: R50.9 Fever, unspecified (principal)
CPT/HCPCS: 36415; 71045-TC-FY; 80053; 83605; 85025; 85610; 85730; 87040; 93005; 93010; 99285-25

== ENCOUNTER 2019-12-30 15:00 | Inpatient (IN) | payer OTHER ==
--- NOTE | 2019-12-30 14:12 | HP ---
[facility] Rehab Assess/Revision - Admission History Admitted to Rehab [facility] - Findings Detox History & Physical reviewed: Yes Concur with findings: Yes Inpatient Rehab Admission - Rehab Decision to Admit Inpatient rehab admission?: Yes - Initial Determination Are CD services needed?: Yes Free of communicable disease: Yes Not in need of hospitalization: Yes - Rehab Admission Criteria Previous failed treatment: Yes Poor recovery environment: Yes Comorbidities: Yes Lacks judgement: Yes Patient is meeting Inpatient Rehab admission criteria:: Yes
[~2019-12-30 15:00] MED LIST: ACETAMINOPHEN 325 MG TABLET (FP) PO PRN; IBUPROFEN 400 MG TABLET (FP) PO PRN; LOPERAMIDE HCL 2 MG CAPSULE PO PRN; MAG HYDROX/AL HYDROX/SIMETH 30 ML UNIT-DOSE CUP PO PRN; MAGNESIUM CITRATE 300 ML BOTTLE PO PRN; MAGNESIUM HYDROX 2400MG/30ML ORAL SUSPENSION 30 ML CUP PO PRN; MENTHOL/PHENOL 1 EACH UD MM PRN; NICOTINE POLACRILEX 2 MG GUM BUC PRN; P-EPHED 60MG/TRIPROLIDI 2.5MG TABLET PO PRN; guaiFENesin 200 MG/10 ML 10 ML UNIT-DOSE CUPS PO PRN; hydrOXYzine PAMOATE 25 MG CAPSULE (FP) PO PRN
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
[2019-12-30] MEDS: MELATONIN 5 MG TABLETS PO SCH (21:40)
[2019-12-30] MEDS: THIAMINE HCL 100 MG TABLET (FP) PO SCH (21:40)
[2019-12-31] MEDS ORDERED: NICOTINE 7 MG/24 HOURS TOPICAL PATCH TD SCH (10:00)
[2019-12-31] MEDS: NICOTINE 21 MG/24 HOURS TOPICAL PATCH TD SCH (10:46)
[2019-12-31] MEDS: PRENATAL VITAMINS W/ FOLIC ACID TABLET (FP) PO SCH (10:46)
[2019-12-31] MEDS: NICOTINE POLACRILEX 4 MG GUM BUC PRN (10:47)
[2019-12-31] MEDS: THIAMINE HCL 100 MG TABLET (FP) PO SCH (21:39)
[2019-12-31] MEDS: MELATONIN 5 MG TABLETS PO SCH (21:40)
[2020-01-01] MEDS: NICOTINE 21 MG/24 HOURS TOPICAL PATCH TD SCH (10:33)
[2020-01-01] MEDS: PRENATAL VITAMINS W/ FOLIC ACID TABLET (FP) PO SCH (10:33)
[2020-01-01] MEDS: NICOTINE POLACRILEX 4 MG GUM BUC PRN (10:35)
[2020-01-01] MEDS: MELATONIN 5 MG TABLETS PO SCH (22:18)
[2020-01-01] MEDS: THIAMINE HCL 100 MG TABLET (FP) PO SCH (22:18)
[2020-01-02] MEDS: NICOTINE 21 MG/24 HOURS TOPICAL PATCH TD SCH (10:49)
[2020-01-02] MEDS: PRENATAL VITAMINS W/ FOLIC ACID TABLET (FP) PO SCH (10:49)
[2020-01-02] MEDS: NICOTINE POLACRILEX 4 MG GUM BUC PRN ×2 (10:50→14:33)
[2020-01-02] MEDS: THIAMINE HCL 100 MG TABLET (FP) PO SCH (22:54)
[2020-01-02] MEDS: MELATONIN 5 MG TABLETS PO SCH (22:54)
[2020-01-03] MEDS: PRENATAL VITAMINS W/ FOLIC ACID TABLET (FP) PO SCH (10:38)
[2020-01-03] MEDS: NICOTINE POLACRILEX 4 MG GUM BUC PRN (10:38)
[2020-01-03] MEDS: NICOTINE 21 MG/24 HOURS TOPICAL PATCH TD SCH (10:38)
[2020-01-03] MEDS: MELATONIN 5 MG TABLETS PO SCH (21:37)
[2020-01-03] MEDS: THIAMINE HCL 100 MG TABLET (FP) PO SCH (21:38)
[2020-01-04] MEDS: NICOTINE 21 MG/24 HOURS TOPICAL PATCH TD SCH (10:50)
[2020-01-04] MEDS: PRENATAL VITAMINS W/ FOLIC ACID TABLET (FP) PO SCH (10:50)
[2020-01-04] MEDS: MELATONIN 5 MG TABLETS PO SCH (21:42)
[2020-01-04] MEDS: THIAMINE HCL 100 MG TABLET (FP) PO SCH (21:42)
[2020-01-05] MEDS: PRENATAL VITAMINS W/ FOLIC ACID TABLET (FP) PO SCH (11:22)
[2020-01-05] MEDS: NICOTINE 21 MG/24 HOURS TOPICAL PATCH TD SCH (11:22)
--- NOTE | 2020-01-05 11:44 | DS ---
[facility] Rehab Discharge Summary - [facility] Rehab Discharge Summary Admission Date: 12/30/19 Discharge Date: 01/05/20 - History Present History: Alcohol dependence, Cannabis dependence, Cocaine dependence - Discharge Physical Exam Vital Signs: Vital Signs Temperature 97.3 F L 01/05/20 07:58 Pulse Rate 62 01/05/20 07:58 Respiratory Rate 18 01/05/20 07:58 Blood Pressure 121/70 01/05/20 07:58 O2 Sat by Pulse Oximetry (%) 95 01/05/20 07:58 General;WDWN male, slender built; Alert o x 3 Resp;no resp difficulty MSK:Active FROM, all limbs, no edema Skin:intact skin,turgo wnl Pertinent Admission Physical Exam Findings: S/P detox stable - Treatment Discharge Condition: Discharge condition good, Rehabilitated safely, Outpatient referral accepted Hospital Course: pt is a 59 y/o male who completed detox and referred to rehab. Pt requesting for early discharge today to follow up with outpt program. Pt met with his counselor Ms Narayan Medley for aftercare planning and wants to follow up at [facility]. - Medication Discharge Medications: Ambulatory Orders NK [No Known Home Medication] 07/15/17 - Medication-Assisted Treatment (MAT) Medication-Assisted Treatment (MAT): No - Discharge Instructions Diet, activity, other medical instructions: Diet:Regular Activity: oob ad margaux Other medical instructions:follow up with CD aftercare as scheduled. Follow up with PCP at [facility] for medical management as needed. - Follow-up Referral Minutes to complete discharge: 20
[2020-01-05] MEDS: THIAMINE HCL 100 MG TABLET (FP) PO SCH (21:48)
[2020-01-05] MEDS: MELATONIN 5 MG TABLETS PO SCH (21:48)
[2020-01-06] MEDS: PRENATAL VITAMINS W/ FOLIC ACID TABLET (FP) PO SCH (11:00)
[2020-01-06] MEDS: NICOTINE 21 MG/24 HOURS TOPICAL PATCH TD SCH (11:00)
[2020-01-06] MEDS: THIAMINE HCL 100 MG TABLET (FP) PO SCH (22:32)
[2020-01-06] MEDS: MELATONIN 5 MG TABLETS PO SCH (22:32)
[2020-01-07] MEDS: NICOTINE 21 MG/24 HOURS TOPICAL PATCH TD SCH (12:17)
[2020-01-07] MEDS: PRENATAL VITAMINS W/ FOLIC ACID TABLET (FP) PO SCH (12:18)
[2020-01-07] MEDS: NICOTINE POLACRILEX 4 MG GUM BUC PRN (12:19)
[2020-01-07] MEDS: THIAMINE HCL 100 MG TABLET (FP) PO SCH (22:26)
[2020-01-07] MEDS: MELATONIN 5 MG TABLETS PO SCH (22:26)
[2020-01-08] MEDS: NICOTINE 21 MG/24 HOURS TOPICAL PATCH TD SCH (09:17)
[2020-01-08] MEDS: PRENATAL VITAMINS W/ FOLIC ACID TABLET (FP) PO SCH (09:17)
[2020-01-08] MEDS: MELATONIN 5 MG TABLETS PO SCH (22:08)
[2020-01-08] MEDS: THIAMINE HCL 100 MG TABLET (FP) PO SCH (22:09)
[2020-01-09] MEDS: NICOTINE POLACRILEX 4 MG GUM BUC PRN ×3 (06:49→17:23)
[2020-01-09] MEDS: NICOTINE 21 MG/24 HOURS TOPICAL PATCH TD SCH (11:12)
[2020-01-09] MEDS: PRENATAL VITAMINS W/ FOLIC ACID TABLET (FP) PO SCH (11:12)
[2020-01-09] MEDS: THIAMINE HCL 100 MG TABLET (FP) PO SCH (22:28)
[2020-01-09] MEDS: MELATONIN 5 MG TABLETS PO SCH (22:28)
[2020-01-10] MEDS: NICOTINE POLACRILEX 4 MG GUM BUC PRN ×3 (08:14→17:37)
[2020-01-10] MEDS: NICOTINE 21 MG/24 HOURS TOPICAL PATCH TD SCH (10:28)
[2020-01-10] MEDS: PRENATAL VITAMINS W/ FOLIC ACID TABLET (FP) PO SCH (10:28)
[2020-01-10] MEDS: MELATONIN 5 MG TABLETS PO SCH (22:17)
[2020-01-10] MEDS: THIAMINE HCL 100 MG TABLET (FP) PO SCH (22:17)
[2020-01-11] MEDS: NICOTINE POLACRILEX 4 MG GUM BUC PRN ×3 (07:32→17:38)
[2020-01-11] MEDS: PRENATAL VITAMINS W/ FOLIC ACID TABLET (FP) PO SCH (12:19)
[2020-01-11] MEDS: NICOTINE 21 MG/24 HOURS TOPICAL PATCH TD SCH (12:19)
--- NOTE | 2020-01-11 21:10 | DS ---
[facility] Detox Discharge Summary Admission Date: 12/30/19 - Physical Exam Results Vital Signs: Vital Signs Temperature 97.2 F L 01/11/20 07:59 Pulse Rate 58 L 01/11/20 07:59 Respiratory Rate 18 01/11/20 07:59 Blood Pressure 115/77 01/11/20 07:59 O2 Sat by Pulse Oximetry (%) 96 01/11/20 13:33 - Medication Discharge Medications: Ambulatory Orders NK [No Known Home Medication] 07/15/17
[2020-01-11] MEDS: THIAMINE HCL 100 MG TABLET (FP) PO SCH (21:56)
[2020-01-11] MEDS: MELATONIN 5 MG TABLETS PO SCH (21:56)
[2020-01-12] MEDS: NICOTINE POLACRILEX 4 MG GUM BUC PRN ×2 (06:46→08:24)
[2020-01-12 07:00] VITALS: BP 146/95; PULSE 57; TEMP 97.3
--- NOTE | 2020-01-12 08:34 | DS ---
[facility] Rehab Discharge Summary - [facility] Rehab Discharge Summary Admission Date: 12/30/19 Discharge Date: 01/12/20 - History Present History: Alcohol dependence, Cannabis dependence, Cocaine dependence Pertinent Past History: Right eye Blindness - Discharge Physical Exam Vital Signs: Vital Signs Temperature 97.3 F L 01/12/20 06:47 Pulse Rate 57 L 01/12/20 06:47 Respiratory Rate 18 01/12/20 06:47 Blood Pressure 146/95 01/12/20 06:47 O2 Sat by Pulse Oximetry (%) 95 01/12/20 06:47 General:Alert o x 3, oob ambulating with steady gait, thin appearing male, nad. cardiac;s1 s2, rrr lungs:ctab abdomen:soft, +bs,nt,nd MSK:Active ROM, all limbs; no edema Skin:no edema, skin intact. Pertinent Admission Physical Exam Findings: Unremarkable - Treatment Discharge Condition: Discharge condition good, Rehabilitated safely, Responded well, Outpatient referral accepted Hospital Course: Pt is a 59 y/o male with a hx of AMANDA-alcohol, cocaine, marijuana admitted to rehab after alcohol detox on . Pt completed rehab and discharged today. pt met with his counselor and has been referred to CD aftercare to [facility]. - Medication Discharge Medications: Ambulatory Orders NK [No Known Home Medication] 07/15/17 - Medication-Assisted Treatment (MAT) Medication-Assisted Treatment (MAT): No - Discharge Instructions Diet, activity, other medical instructions: Diet:Regular Activity: oob ad margaux Other medical instructions:follow up with CD aftercare as recommended. Follow up with primary care at [facility] for medical management as needed. - Diagnosis (1) Alcohol use disorder Status: Chronic (2) Cannabis dependence Status: Chronic (3) Cocaine dependence Status: Chronic Qualifiers: Substance use status: uncomplicated Qualified Code(s): F14.20 - Cocaine dependence, uncomplicated (4) Nicotine dependence Status: Chronic Qualifiers: Nicotine product type: cigarettes Substance use status: uncomplicated Qualified Code(s): F17.210 - Nicotine dependence, cigarettes, uncomplicated (5) Blind right eye Status: Chronic - Follow-up Referral Minutes to complete discharge: 20 - AMA Did Patient Leave Against Medical Advice: No
[2020-01-12] MEDS: PRENATAL VITAMINS W/ FOLIC ACID TABLET (FP) PO SCH (09:12)
[2020-01-12] MEDS: NICOTINE 21 MG/24 HOURS TOPICAL PATCH TD SCH (09:12)
== END 2020-01-12 09:15 | disposition home or self-care (01) | DRG 772 ==
LOC: YASAS 15:00 → Y5N 15:01
PROVIDERS: ADMIT Allergy & Immunology; ATTEND Allergy & Immunology
PROC: HZ42ZZZ Group Counseling for Substance Abuse Treatment, Cognitive-Behavioral (ICD-10-PCS; principal; 2019-12-30)
DX: F10.20 Alcohol dependence, uncomplicated (principal); F14.20 Cocaine dependence, uncomplicated; F12.20 Cannabis dependence, uncomplicated; F17.210 Nicotine dependence, cigarettes, uncomplicated; H54.61 Unqualified visual loss, right eye, normal vision left eye; Z93.59 Other cystostomy status

== ENCOUNTER 2020-03-03 12:57 | Inpatient (IN) | payer OTHER ==
[2020-03-03] MEDS ORDERED: LOPERAMIDE HCL 2 MG CAPSULE PO PRN (16:48)
[2020-03-03] MEDS ORDERED: ACETAMINOPHEN 325 MG TABLET (FP) PO PRN (16:48)
[2020-03-03] MEDS ORDERED: MAGNESIUM CITRATE 300 ML BOTTLE PO PRN (16:48)
[2020-03-03] MEDS ORDERED: MAGNESIUM HYDROX 2400MG/30ML ORAL SUSPENSION 30 ML CUP PO PRN (16:48)
[2020-03-03] MEDS ORDERED: MAG HYDROX/AL HYDROX/SIMETH 30 ML UNIT-DOSE CUP PO PRN (16:48)
[2020-03-03] MEDS ORDERED: guaiFENesin 200 MG/10 ML 10 ML UNIT-DOSE CUPS PO PRN (16:48)
[2020-03-03] MEDS ORDERED: P-EPHED 60MG/TRIPROLIDI 2.5MG TABLET PO PRN (16:48)
[2020-03-03] MEDS ORDERED: IBUPROFEN 400 MG TABLET (FP) PO PRN (16:48)
[2020-03-03 16:52] VITALS: BMI 20.7
[2020-03-03] MEDS: MELATONIN 5 MG TABLETS PO SCH (21:49)
[2020-03-03] MEDS: THIAMINE HCL 100 MG TABLET (FP) PO SCH (21:49)
[2020-03-04] MEDS: PRENATAL VITAMINS W/ FOLIC ACID TABLET (FP) PO SCH (09:51)
[2020-03-04] MEDS: NICOTINE 21 MG/24 HOURS TOPICAL PATCH TD SCH (09:52)
[2020-03-04] MEDS: NICOTINE POLACRILEX 2 MG GUM BC PRN (09:52)
[2020-03-04 10:20] LABS: HEMATOCRIT 42.6 % (35.4-49); HEMOGLOBIN 13.7 GM/dL (11.7-16.9); MCH 31.9 pg (25.7-33.7); MCHC 32.3 g/dl (32.0-35.9); MEAN CELL VOLUME 98.9 fl (80-96); MEAN PLT VOLUME 9.1 fl (7.5-11.1); PLATELET COUNT 227 K/MM3 (134-434); RBC 4.31 M/mm3 (4.00-5.60); RDW 14.5 % (11.9-15.9); WHITE BLOOD COUNT 3.4 K/mm3 (4.0-10.0)
[2020-03-04 10:21] LABS: PH,URINE 6.5 (5.0-8.0); URINE APPEARANCE CLEAR; URINE BILIRUBIN NEGATIVE (NEGATIVE); URINE COLOR YELLOW; URINE GLUCOSE (UA) NEGATIVE (NEGATIVE); URINE KETONE NEGATIVE (NEGATIVE); URINE LEUK ESTERASE NEGATIVE (NEGATIVE); URINE NITRITE NEGATIVE (NEGATIVE); URINE PROTEIN NEGATIVE (NEGATIVE)
[2020-03-04 10:40] LABS: POTASSIUM 4.5 mmol/L (3.5-5.1)
[2020-03-04 10:43] LABS: CALCIUM 8.8 mg/dL (8.5-10.1)
[2020-03-04 10:44] LABS: ALBUMIN 3.5 g/dl (3.4-5.0); BLOOD UREA NITROGEN 10.6 mg/dL (7-18)
[2020-03-04 10:46] LABS: CREATININE 1.4 mg/dL (0.55-1.3)
[2020-03-04 10:48] LABS: BILIRUBIN,TOTAL 0.6 mg/dL (0.2-1); TOT PROT 6.4 g/dl (6.4-8.2)
[2020-03-04 11:37] LABS: SICKLE CELL SCREEN POSITIVE (NEGATIVE)
[2020-03-04] MEDS: MELATONIN 5 MG TABLETS PO SCH (22:06)
[2020-03-04] MEDS: THIAMINE HCL 100 MG TABLET (FP) PO SCH (22:06)
[2020-03-05] MEDS: NICOTINE POLACRILEX 2 MG GUM BC PRN ×2 (08:44→21:06)
[2020-03-05] MEDS: NICOTINE 21 MG/24 HOURS TOPICAL PATCH TD SCH (10:18)
[2020-03-05] MEDS: PRENATAL VITAMINS W/ FOLIC ACID TABLET (FP) PO SCH (10:18)
[2020-03-05] MEDS: THIAMINE HCL 100 MG TABLET (FP) PO SCH (21:07)
[2020-03-05] MEDS: MELATONIN 5 MG TABLETS PO SCH (21:07)
[2020-03-06] MEDS: NICOTINE 21 MG/24 HOURS TOPICAL PATCH TD SCH (10:00)
[2020-03-06] MEDS: PRENATAL VITAMINS W/ FOLIC ACID TABLET (FP) PO SCH (10:01)
[2020-03-06] MEDS: NICOTINE POLACRILEX 2 MG GUM BC PRN ×3 (10:03→21:32)
[2020-03-06] MEDS: MELATONIN 5 MG TABLETS PO SCH (21:32)
[2020-03-06] MEDS: THIAMINE HCL 100 MG TABLET (FP) PO SCH (21:32)
[2020-03-07] MEDS: NICOTINE POLACRILEX 2 MG GUM BC PRN ×3 (07:57→21:05)
[2020-03-07] MEDS: PRENATAL VITAMINS W/ FOLIC ACID TABLET (FP) PO SCH (09:06)
[2020-03-07] MEDS: NICOTINE 21 MG/24 HOURS TOPICAL PATCH TD SCH (09:06)
[2020-03-07] MEDS: THIAMINE HCL 100 MG TABLET (FP) PO SCH (22:10)
[2020-03-07] MEDS: MELATONIN 5 MG TABLETS PO SCH (22:10)
[2020-03-08] MEDS ORDERED: PT OWN MED DRAWER 7, Y5N ONE (09:28)
[2020-03-08] MEDS: NICOTINE 21 MG/24 HOURS TOPICAL PATCH TD SCH (10:30)
[2020-03-08] MEDS: PRENATAL VITAMINS W/ FOLIC ACID TABLET (FP) PO SCH (10:31)
[2020-03-08] MEDS: NICOTINE POLACRILEX 2 MG GUM BC PRN (17:11)
[2020-03-08] MEDS: MELATONIN 5 MG TABLETS PO SCH (22:05)
[2020-03-08] MEDS: THIAMINE HCL 100 MG TABLET (FP) PO SCH (22:05)
[2020-03-09] MEDS ORDERED: PT OWN MED DRAWER 7, Y5N ONE (09:12)
[2020-03-09] MEDS: NICOTINE 21 MG/24 HOURS TOPICAL PATCH TD SCH (10:07)
[2020-03-09] MEDS: PRENATAL VITAMINS W/ FOLIC ACID TABLET (FP) PO SCH (10:07)
[2020-03-09] MEDS: MELATONIN 5 MG TABLETS PO SCH (21:44)
[2020-03-09] MEDS: THIAMINE HCL 100 MG TABLET (FP) PO SCH (21:44)
[2020-03-10 10:10] LABS: HGB SOLUBILITY Positive (Negative); Hgb C 0 % (0.0); Hgb F 0.5 % (0.0-2.0); Hgb S 38.1 % (0.0)
[2020-03-10] MEDS: PRENATAL VITAMINS W/ FOLIC ACID TABLET (FP) PO SCH (10:46)
[2020-03-10] MEDS: NICOTINE 21 MG/24 HOURS TOPICAL PATCH TD SCH (10:46)
[2020-03-10] MEDS: THIAMINE HCL 100 MG TABLET (FP) PO SCH (22:03)
[2020-03-10] MEDS: MELATONIN 5 MG TABLETS PO SCH (22:03)
[2020-03-11] MEDS: NICOTINE 21 MG/24 HOURS TOPICAL PATCH TD SCH (10:20)
[2020-03-11] MEDS: PRENATAL VITAMINS W/ FOLIC ACID TABLET (FP) PO SCH (10:20)
[2020-03-11] MEDS: THIAMINE HCL 100 MG TABLET (FP) PO SCH (21:45)
[2020-03-11] MEDS: MELATONIN 5 MG TABLETS PO SCH (21:45)
[2020-03-12] MEDS: NICOTINE 21 MG/24 HOURS TOPICAL PATCH TD SCH (10:02)
[2020-03-12] MEDS: PRENATAL VITAMINS W/ FOLIC ACID TABLET (FP) PO SCH (10:02)
[2020-03-12] MEDS ORDERED: PT OWN MED DRAWER 7, Y5N ONE (10:22)
[2020-03-12] MEDS: MELATONIN 5 MG TABLETS PO SCH (22:32)
[2020-03-12] MEDS: THIAMINE HCL 100 MG TABLET (FP) PO SCH (22:32)
[2020-03-13] MEDS: NICOTINE 21 MG/24 HOURS TOPICAL PATCH TD SCH (10:33)
[2020-03-13] MEDS: PRENATAL VITAMINS W/ FOLIC ACID TABLET (FP) PO SCH (10:33)
[2020-03-13] MEDS: THIAMINE HCL 100 MG TABLET (FP) PO SCH (22:22)
[2020-03-13] MEDS: MELATONIN 5 MG TABLETS PO SCH (22:22)
[2020-03-14] MEDS: NICOTINE 21 MG/24 HOURS TOPICAL PATCH TD SCH (10:05)
[2020-03-14] MEDS: PRENATAL VITAMINS W/ FOLIC ACID TABLET (FP) PO SCH (10:05)
[2020-03-14] MEDS: THIAMINE HCL 100 MG TABLET (FP) PO SCH (23:09)
[2020-03-14] MEDS: MELATONIN 5 MG TABLETS PO SCH (23:09)
[2020-03-15] MEDS: PRENATAL VITAMINS W/ FOLIC ACID TABLET (FP) PO SCH (10:27)
[2020-03-15] MEDS: NICOTINE 21 MG/24 HOURS TOPICAL PATCH TD SCH (10:27)
[2020-03-16] MEDS: THIAMINE HCL 100 MG TABLET (FP) PO SCH ×2 (00:11→22:28)
[2020-03-16] MEDS: MELATONIN 5 MG TABLETS PO SCH ×2 (00:11→22:28)
[2020-03-16] MEDS: PRENATAL VITAMINS W/ FOLIC ACID TABLET (FP) PO SCH (10:36)
[2020-03-16] MEDS: NICOTINE 21 MG/24 HOURS TOPICAL PATCH TD SCH (10:36)
[2020-03-17] MEDS: PRENATAL VITAMINS W/ FOLIC ACID TABLET (FP) PO SCH (10:41)
[2020-03-17] MEDS: NICOTINE 21 MG/24 HOURS TOPICAL PATCH TD SCH (10:41)
[2020-03-17] MEDS ORDERED: PT OWN MED DRAWER 7, Y5N ONE (11:53)
[2020-03-17] MEDS: THIAMINE HCL 100 MG TABLET (FP) PO SCH (21:59)
[2020-03-17] MEDS: MELATONIN 5 MG TABLETS PO SCH (21:59)
[2020-03-18] MEDS: PRENATAL VITAMINS W/ FOLIC ACID TABLET (FP) PO SCH (10:45)
[2020-03-18] MEDS: NICOTINE 21 MG/24 HOURS TOPICAL PATCH TD SCH (10:45)
[2020-03-18] MEDS: MELATONIN 5 MG TABLETS PO SCH (22:39)
[2020-03-18] MEDS: THIAMINE HCL 100 MG TABLET (FP) PO SCH (22:39)
[2020-03-19] MEDS: NICOTINE 21 MG/24 HOURS TOPICAL PATCH TD SCH (10:44)
[2020-03-19] MEDS: PRENATAL VITAMINS W/ FOLIC ACID TABLET (FP) PO SCH (10:44)
[2020-03-19] MEDS: MELATONIN 5 MG TABLETS PO SCH (22:17)
[2020-03-19] MEDS: THIAMINE HCL 100 MG TABLET (FP) PO SCH (22:17)
[2020-03-20] MEDS: PRENATAL VITAMINS W/ FOLIC ACID TABLET (FP) PO SCH (10:51)
[2020-03-20] MEDS: NICOTINE 21 MG/24 HOURS TOPICAL PATCH TD SCH (10:51)
[2020-03-20] MEDS: THIAMINE HCL 100 MG TABLET (FP) PO SCH (22:38)
[2020-03-20] MEDS: MELATONIN 5 MG TABLETS PO SCH (22:38)
[2020-03-21] MEDS: NICOTINE 21 MG/24 HOURS TOPICAL PATCH TD SCH (10:36)
[2020-03-21] MEDS: PRENATAL VITAMINS W/ FOLIC ACID TABLET (FP) PO SCH (10:36)
[2020-03-21] MEDS: THIAMINE HCL 100 MG TABLET (FP) PO SCH (21:45)
[2020-03-21] MEDS: MELATONIN 5 MG TABLETS PO SCH (21:45)
[2020-03-22] MEDS: PRENATAL VITAMINS W/ FOLIC ACID TABLET (FP) PO SCH (10:41)
[2020-03-22] MEDS: NICOTINE 21 MG/24 HOURS TOPICAL PATCH TD SCH (10:41)
[2020-03-22] MEDS: NICOTINE POLACRILEX 2 MG GUM BC PRN (15:49)
[2020-03-22] MEDS: MELATONIN 5 MG TABLETS PO SCH (22:21)
[2020-03-22] MEDS: THIAMINE HCL 100 MG TABLET (FP) PO SCH (22:22)
[2020-03-23 06:59] VITALS: BP 137/94; PULSE 58; TEMP 97.3
[2020-03-23] MEDS: NICOTINE POLACRILEX 2 MG GUM BC PRN (07:56)
== END 2020-03-23 08:21 | disposition home or self-care (01) | DRG 772 ==
LOC: YASAS 12:57 → Y3W 16:32
PROVIDERS: ADMIT Allergy & Immunology; ATTEND Allergy & Immunology
PROC: HZ42ZZZ Group Counseling for Substance Abuse Treatment, Cognitive-Behavioral (ICD-10-PCS; principal; 2020-03-03)
DX: F10.20 Alcohol dependence, uncomplicated (principal); F14.20 Cocaine dependence, uncomplicated; F12.20 Cannabis dependence, uncomplicated; F17.210 Nicotine dependence, cigarettes, uncomplicated; H54.61 Unqualified visual loss, right eye, normal vision left eye; S00.412A Abrasion of left ear, initial encounter; Y92.238 Other place in hospital as the place of occurrence of the external cause; W26.8XXA Contact with other sharp object(s), not elsewhere classified, initial encounter; Y93.E8 Activity, other personal hygiene; Y99.8 Other external cause status; Z86.19 Personal history of other infectious and parasitic diseases; Z56.0 Unemployment, unspecified
CPT/HCPCS: 36415; 80053; 81003; 83021; 85027; 85660; 86593; 86780; C9803; U0003

== ENCOUNTER 2021-07-03 12:17 | Inpatient (IN) | payer OTHER ==
[2021-07-03] MEDS ORDERED: MAG HYDROX/AL HYDROX/SIMETH 30 ML UNIT-DOSE CUP PO PRN (15:36)
[2021-07-03] MEDS ORDERED: ONDANSETRON *ODT* 4 MG TABLET SL PRN (15:36)
[2021-07-03] MEDS ORDERED: MAGNESIUM HYDROX 2400MG/30ML ORAL SUSPENSION 30 ML CUP PO PRN (15:36)
[2021-07-03] MEDS ORDERED: IBUPROFEN 400 MG TABLET (FP) PO PRN (15:36)
[2021-07-03] MEDS ORDERED: BISMUTH SUBSALICYLATE 524 MG/30 ML PO PRN (15:36)
[2021-07-03] MEDS ORDERED: MAGNESIUM CITRATE 300 ML BOTTLE PO PRN (15:36)
[2021-07-03] MEDS ORDERED: LOPERAMIDE HCL 2 MG CAPSULE PO PRN (15:36)
[2021-07-03] MEDS ORDERED: LORazepam 1 MG TABLET PO PRN (15:36)
[2021-07-03] MEDS ORDERED: METHOCARBAMOL 500 MG TABLET PO PRN (15:36)
[2021-07-03] MEDS ORDERED: ACETAMINOPHEN 325 MG TABLET (FP) PO PRN ×2 (15:36)
[2021-07-03] MEDS ORDERED: MENTHOL/PHENOL 1 EACH UD MM PRN (15:36)
[2021-07-03] MEDS ORDERED: NICOTINE 10 MG CARTRIDGE (INHALER) IH PRN (15:36)
[2021-07-03 15:55] VITALS: BMI 18.3
[2021-07-03] MEDS: hydrOXYzine PAMOATE 25 MG CAPSULE (FP) PO SCH ×2 (18:31→22:59)
[2021-07-03] MEDS: THIAMINE HCL 100 MG TABLET (FP) PO SCH (22:59)
[2021-07-03] MEDS: LORazepam 2 MG TABLET PO SCH (22:59)
[2021-07-03] MEDS: MELATONIN 5 MG TABLETS PO SCH (23:00)
[2021-07-04 01:38] LABS: PH,URINE 5.5 (5.0-8.0); URINE APPEARANCE Clear; URINE BILIRUBIN Negative (NEGATIVE); URINE COLOR Yellow; URINE GLUCOSE (UA) Negative (NEGATIVE); URINE KETONE Negative (NEGATIVE); URINE LEUK ESTERASE Trace (NEGATIVE); URINE NITRITE Negative (NEGATIVE); URINE PROTEIN Negative (NEGATIVE); URINE UROBILINOGEN 0.2 mg/dL (0.2-1.0)
[2021-07-04 01:42] LABS: EPI CELLS 4.9 /uL (0-25.1); HYALINE CASTS 0.25 /uL (0-3.1); URINE RBC 1.5 /uL (0-23.9); URINE WBC 32.7 /uL (0-25.8)
[2021-07-04] MEDS: LORazepam 2 MG TABLET PO SCH ×4 (07:12→23:23)
[2021-07-04] MEDS: hydrOXYzine PAMOATE 25 MG CAPSULE (FP) PO SCH ×5 (07:13→23:26)
[2021-07-04 09:56] LABS: CALCIUM 8.9 mg/dL (8.5-10.1)
[2021-07-04 09:57] LABS: ALBUMIN 3.4 g/dl (3.4-5.0); BLOOD UREA NITROGEN 15.1 mg/dL (7-18)
[2021-07-04 10:00] LABS: CREATININE 1.4 mg/dL (0.55-1.3)
[2021-07-04 10:04] LABS: BILIRUBIN,TOTAL 0.4 mg/dL (0.2-1); TOT PROT 6.2 g/dl (6.4-8.2)
[2021-07-04 10:10] LABS: HEMATOCRIT 37.5 % (35.4-49); HEMOGLOBIN 12.8 GM/dL (11.7-16.9); MCH 33.6 pg (25.7-33.7); MCHC 34.1 g/dl (32.0-35.9); MEAN CELL VOLUME 98.5 fl (80-96); MEAN PLT VOLUME 7.9 fl (7.5-11.1); PLATELET COUNT 194 10^3/uL (134-434); RBC 3.81 M/mm3 (4.00-5.60); RDW 14.2 % (11.9-15.9); WHITE BLOOD COUNT 2.7 K/mm3 (4.0-10.0)
[2021-07-04] MEDS: PRENATAL VITAMINS W/ FOLIC ACID TABLET (FP) PO SCH (10:29)
[2021-07-04] MEDS: THIAMINE HCL 100 MG TABLET (FP) PO SCH (23:26)
[2021-07-04] MEDS: MELATONIN 5 MG TABLETS PO SCH (23:26)
[2021-07-05 06:06] LABS: SARS-CoV-2 NAA Not Detected (Not Detected)
[2021-07-05] MEDS: hydrOXYzine PAMOATE 25 MG CAPSULE (FP) PO SCH ×5 (07:03→23:25)
[2021-07-05] MEDS: LORazepam 1 MG TABLET PO SCH ×4 (07:03→23:25)
[2021-07-05] MEDS: PRENATAL VITAMINS W/ FOLIC ACID TABLET (FP) PO SCH (10:43)
[2021-07-05] MEDS: THIAMINE HCL 100 MG TABLET (FP) PO SCH (23:25)
[2021-07-05] MEDS: MELATONIN 5 MG TABLETS PO SCH (23:25)
[2021-07-06] MEDS ORDERED: LORazepam 0.5 MG TABLET PO PRN
[2021-07-06] MEDS: LORazepam 0.5 MG TABLET PO SCH ×2 (06:15→10:32)
[2021-07-06] MEDS: hydrOXYzine PAMOATE 25 MG CAPSULE (FP) PO SCH ×2 (06:15→09:56)
[2021-07-06 06:34] VITALS: BP 152/99; PULSE 84; TEMP 97.7
[2021-07-06] MEDS: PRENATAL VITAMINS W/ FOLIC ACID TABLET (FP) PO SCH (09:56)
[2021-07-07] MEDS ORDERED: LORazepam 0.5 MG TABLET PO ONE (05:00)
== END 2021-07-06 08:41 | disposition home or self-care (01) | DRG 774 ==
LOC: YASAS 12:17 → Y3N 16:32
PROVIDERS: ADMIT Allergy & Immunology; ATTEND Allergy & Immunology
PROC: HZ2ZZZZ Detoxification Services for Substance Abuse Treatment (ICD-10-PCS; principal; 2021-07-03)
DX: F10.230 Alcohol dependence with withdrawal, uncomplicated (principal); F14.20 Cocaine dependence, uncomplicated; F12.20 Cannabis dependence, uncomplicated; F17.210 Nicotine dependence, cigarettes, uncomplicated; H54.40 Blindness, one eye, unspecified eye; D72.819 Decreased white blood cell count, unspecified; R76.8 Other specified abnormal immunological findings in serum; Z86.19 Personal history of other infectious and parasitic diseases; Z56.0 Unemployment, unspecified
CPT/HCPCS: 36415; 80053; 81003; 85027; 86593; 86780; C9803; U0003; U0005

== ENCOUNTER 2022-04-24 11:10 | Inpatient (IN) | payer OTHER ==
[2022-04-24 12:06] VITALS: BMI 20.2
[2022-04-24] MEDS ORDERED: MAGNESIUM HYDROX 2400MG/30ML ORAL SUSPENSION 30 ML CUP PO PRN (12:47)
[2022-04-24] MEDS ORDERED: POLYETHYLENE GLYCOL (HEALTHYLAX) 3350 17 GM PACKET PO PRN (12:47)
[2022-04-24] MEDS ORDERED: LOPERAMIDE HCL 2 MG CAPSULE PO PRN (12:47)
[2022-04-24] MEDS ORDERED: MAG HYDROX/AL HYDROX/SIMETH 30 ML UNIT-DOSE CUP PO PRN (12:47)
[2022-04-24] MEDS ORDERED: P-EPHED 60MG/TRIPROLIDI 2.5MG TABLET PO PRN (12:47)
[2022-04-24] MEDS ORDERED: BENZOCAINE/MENTHOL (CHLORASEPTIC ) LOZENGE MM PRN (12:47)
[2022-04-24] MEDS ORDERED: guaiFENesin 200 MG/10 ML 10 ML UNIT-DOSE CUPS PO PRN (12:47)
[2022-04-24] MEDS ORDERED: IBUPROFEN 400 MG TABLET (FP) PO PRN (12:47)
[2022-04-24] MEDS: NICOTINE 21 MG/24 HOURS TOPICAL PATCH TD SCH (17:20)
[2022-04-24] MEDS: PRENATAL VITAMINS W/ FOLIC ACID TABLET (FP) PO SCH (17:20)
[2022-04-24] MEDS: THIAMINE HCL 100 MG TABLET (FP) PO SCH (21:24)
[2022-04-24] MEDS: MELATONIN 5 MG TABLETS PO SCH (21:24)
[2022-04-24 22:39] LABS: PH,URINE 6.5 (5.0-8.0); URINE APPEARANCE CLEAR; URINE BILIRUBIN NEGATIVE (NEGATIVE); URINE COLOR YELLOW; URINE GLUCOSE (UA) NEGATIVE (NEGATIVE); URINE KETONE NEGATIVE (NEGATIVE); URINE LEUK ESTERASE NEGATIVE (NEGATIVE); URINE NITRITE NEGATIVE (NEGATIVE); URINE PROTEIN TRACE (NEGATIVE)
[2022-04-25] MEDS: PRENATAL VITAMINS W/ FOLIC ACID TABLET (FP) PO SCH (09:48)
[2022-04-25] MEDS: NICOTINE 21 MG/24 HOURS TOPICAL PATCH TD SCH (09:48)
[2022-04-25] MEDS: ACETAMINOPHEN 325 MG TABLET (FP) PO PRN ×2 (10:19→21:33)
[2022-04-25] MEDS ORDERED: amLODIPine BESYLATE 2.5 MG TABLET (FP) PO SCH (10:30)
[2022-04-25 12:06] LABS: HEMATOCRIT 37.9 % (35.4-49); HEMOGLOBIN 12.4 GM/dL (11.7-16.9); MCH 31.9 pg (25.7-33.7); MCHC 32.6 g/dl (32.0-35.9); MEAN PLT VOLUME 8.8 fl (7.5-11.1); PLATELET COUNT 213 10^3/uL (134-434); RBC 3.87 M/mm3 (4.00-5.60); RDW 13.9 % (11.9-15.9)
[2022-04-25 12:11] LABS: CALCIUM 8.6 mg/dL (8.5-10.1)
[2022-04-25 12:12] LABS: ALBUMIN 3.6 g/dl (3.4-5.0); BLOOD UREA NITROGEN 11.6 mg/dL (7-18)
[2022-04-25 12:15] LABS: CREATININE 1.2 mg/dL (0.55-1.3)
[2022-04-25 12:16] LABS: BILIRUBIN,TOTAL 0.6 mg/dL (0.2-1); TOT PROT 6.8 g/dl (6.4-8.2)
[2022-04-25] MEDS ORDERED: amLODIPine BESYLATE 2.5 MG TABLET (FP) PO ONE (12:48)
[2022-04-25 13:13] LABS: SYPHILIS W/ RPR CONF REACTIVE (NONREACTIVE)
[2022-04-25] MEDS ORDERED: HYDROCHLOROTHIAZIDE 12.5 MG CAPSULE (FP) PO SCH (16:00)
[2022-04-25] MEDS: MELATONIN 5 MG TABLETS PO SCH (21:32)
[2022-04-25] MEDS: THIAMINE HCL 100 MG TABLET (FP) PO SCH (21:32)
[2022-04-25] MEDS: hydrOXYzine PAMOATE 25 MG CAPSULE (FP) PO PRN (21:32)
[2022-04-26] MEDS: PRENATAL VITAMINS W/ FOLIC ACID TABLET (FP) PO SCH (09:50)
[2022-04-26] MEDS: NICOTINE 21 MG/24 HOURS TOPICAL PATCH TD SCH (09:51)
[2022-04-26] MEDS ORDERED: amLODIPine BESYLATE 5 MG TABLET (FP) PO SCH (10:00)
[2022-04-26] MEDS ORDERED: amLODIPine BESYLATE 2.5 MG TABLET (FP) PO ONE (12:00)
[2022-04-26] MEDS: ACETAMINOPHEN 325 MG TABLET (FP) PO PRN (15:46)
[2022-04-26] MEDS ORDERED: HYDROCHLOROTHIAZIDE 25 MG TABLET (FP) PO SCH ×2 (16:00)
[2022-04-26] MEDS: MELATONIN 5 MG TABLETS PO SCH (21:22)
[2022-04-26] MEDS: THIAMINE HCL 100 MG TABLET (FP) PO SCH (21:22)
[2022-04-26] MEDS: hydrOXYzine PAMOATE 25 MG CAPSULE (FP) PO PRN (21:23)
[2022-04-26] MEDS ORDERED: cloNIDine HCL 0.1 MG TABLET PO ONE (23:03)
[2022-04-27] MEDS: amLODIPine BESYLATE 10 MG TABLET (FP) PO SCH (06:19)
[2022-04-27] MEDS: NICOTINE 21 MG/24 HOURS TOPICAL PATCH TD SCH (09:19)
[2022-04-27] MEDS: PRENATAL VITAMINS W/ FOLIC ACID TABLET (FP) PO SCH (09:19)
[2022-04-27] MEDS ORDERED: HYDROCHLOROTHIAZIDE 25 MG TABLET (FP) PO ONE ×2 (16:19→18:00)
[2022-04-27] MEDS: hydrOXYzine PAMOATE 25 MG CAPSULE (FP) PO PRN (21:22)
[2022-04-27] MEDS: MELATONIN 5 MG TABLETS PO SCH (21:22)
[2022-04-27] MEDS: THIAMINE HCL 100 MG TABLET (FP) PO SCH (21:22)
[2022-04-27] MEDS: ACETAMINOPHEN 325 MG TABLET (FP) PO PRN (21:23)
[2022-04-28] MEDS: amLODIPine BESYLATE 10 MG TABLET (FP) PO SCH (07:00)
[2022-04-28] MEDS: cloNIDine HCL 0.1 MG TABLET PO PRN ×2 (10:12→21:40)
[2022-04-28] MEDS: PRENATAL VITAMINS W/ FOLIC ACID TABLET (FP) PO SCH (10:12)
[2022-04-28] MEDS: NICOTINE 21 MG/24 HOURS TOPICAL PATCH TD SCH (10:12)
[2022-04-28] MEDS: HYDROCHLOROTHIAZIDE 25 MG TABLET (FP) PO SCH (13:08)
[2022-04-28] MEDS: MELATONIN 5 MG TABLETS PO SCH (21:40)
[2022-04-28] MEDS: THIAMINE HCL 100 MG TABLET (FP) PO SCH (21:40)
[2022-04-29] MEDS: amLODIPine BESYLATE 10 MG TABLET (FP) PO SCH (06:14)
[2022-04-29] MEDS: PRENATAL VITAMINS W/ FOLIC ACID TABLET (FP) PO SCH (10:14)
[2022-04-29] MEDS: NICOTINE 21 MG/24 HOURS TOPICAL PATCH TD SCH (10:14)
[2022-04-29] MEDS: HYDROCHLOROTHIAZIDE 25 MG TABLET (FP) PO SCH (13:23)
[2022-04-29] MEDS: THIAMINE HCL 100 MG TABLET (FP) PO SCH (21:29)
[2022-04-29] MEDS: MELATONIN 5 MG TABLETS PO SCH (21:29)
[2022-04-30] MEDS: amLODIPine BESYLATE 10 MG TABLET (FP) PO SCH (06:15)
[2022-04-30] MEDS: NICOTINE 21 MG/24 HOURS TOPICAL PATCH TD SCH (09:58)
[2022-04-30] MEDS: NICOTINE 10 MG CARTRIDGE (INHALER) IH PRN (09:58)
[2022-04-30] MEDS: PRENATAL VITAMINS W/ FOLIC ACID TABLET (FP) PO SCH (09:58)
[2022-04-30] MEDS: HYDROCHLOROTHIAZIDE 25 MG TABLET (FP) PO SCH (12:28)
[2022-04-30] MEDS: MELATONIN 5 MG TABLETS PO SCH (21:05)
[2022-04-30] MEDS: THIAMINE HCL 100 MG TABLET (FP) PO SCH (21:05)
[2022-05-01] MEDS: NICOTINE 10 MG CARTRIDGE (INHALER) IH PRN ×2 (06:32→14:15)
[2022-05-01] MEDS: amLODIPine BESYLATE 10 MG TABLET (FP) PO SCH (06:32)
[2022-05-01] MEDS: PRENATAL VITAMINS W/ FOLIC ACID TABLET (FP) PO SCH (09:42)
[2022-05-01] MEDS: NICOTINE 21 MG/24 HOURS TOPICAL PATCH TD SCH (09:43)
[2022-05-01] MEDS: HYDROCHLOROTHIAZIDE 25 MG TABLET (FP) PO SCH (13:51)
[2022-05-01] MEDS: MELATONIN 5 MG TABLETS PO SCH (21:36)
[2022-05-01] MEDS: THIAMINE HCL 100 MG TABLET (FP) PO SCH (21:36)
[2022-05-02] MEDS: amLODIPine BESYLATE 10 MG TABLET (FP) PO SCH (06:48)
[2022-05-02] MEDS: NICOTINE 10 MG CARTRIDGE (INHALER) IH PRN ×2 (06:49→10:35)
[2022-05-02] MEDS: NICOTINE 21 MG/24 HOURS TOPICAL PATCH TD SCH (09:57)
[2022-05-02] MEDS: PRENATAL VITAMINS W/ FOLIC ACID TABLET (FP) PO SCH (09:57)
[2022-05-02] MEDS: cloNIDine HCL 0.1 MG TABLET PO PRN (09:59)
[2022-05-02] MEDS: HYDROCHLOROTHIAZIDE 25 MG TABLET (FP) PO SCH (14:07)
[2022-05-02] MEDS: THIAMINE HCL 100 MG TABLET (FP) PO SCH (22:00)
[2022-05-02] MEDS: MELATONIN 5 MG TABLETS PO SCH (22:00)
[2022-05-02 22:42] VITALS: RESP 16; TEMP 97.8
[2022-05-03 06:23] VITALS: BP 144/84; PULSE 67
[2022-05-03] MEDS: amLODIPine BESYLATE 10 MG TABLET (FP) PO SCH (06:29)
[2022-05-03] MEDS: ACETAMINOPHEN 325 MG TABLET (FP) PO PRN (06:30)
== END 2022-05-03 07:27 | disposition home or self-care (01) | DRG 772 ==
LOC: YASAS 11:10 → Y3E 16:33
PROVIDERS: ADMIT Allergy & Immunology; ATTEND Psychiatry & Neurology Pain Medicine
PROC: HZ42ZZZ Group Counseling for Substance Abuse Treatment, Cognitive-Behavioral (ICD-10-PCS; principal; 2022-04-24)
DX: F14.20 Cocaine dependence, uncomplicated (principal); F10.20 Alcohol dependence, uncomplicated; F12.20 Cannabis dependence, uncomplicated; F17.210 Nicotine dependence, cigarettes, uncomplicated; F41.9 Anxiety disorder, unspecified; D72.819 Decreased white blood cell count, unspecified; G47.00 Insomnia, unspecified; H54.40 Blindness, one eye, unspecified eye; I10 Essential (primary) hypertension; R80.9 Proteinuria, unspecified; R63.4 Abnormal weight loss; Z68.20 Body mass index [BMI] 20.0-20.9, adult
CPT/HCPCS: 36415; 80053; 81003; 85027; 86593; 86780; 86803; C9803-CS; U0003; U0005

== ENCOUNTER 2022-06-17 09:36 | Inpatient (IN) | payer OTHER ==
[2022-06-17 10:07] VITALS: BMI 17.7
[2022-06-17] MEDS ORDERED: NALOXONE HCL (KLOXXADO) 8 MG SPRAY NS PRN (11:17)
[2022-06-17] MEDS ORDERED: ONDANSETRON *ODT* 4 MG TABLET SL PRN (11:17)
[2022-06-17] MEDS ORDERED: ACETAMINOPHEN 325 MG TABLET (FP) PO PRN ×2 (11:17)
[2022-06-17] MEDS ORDERED: MAGNESIUM HYDROX 2400MG/30ML ORAL SUSPENSION 30 ML CUP PO PRN (11:17)
[2022-06-17] MEDS ORDERED: hydrOXYzine PAMOATE 25 MG CAPSULE (FP) PO PRN (11:17)
[2022-06-17] MEDS ORDERED: BENZOCAINE/MENTHOL (CHLORASEPTIC ) LOZENGE MM PRN (11:17)
[2022-06-17] MEDS ORDERED: BISMUTH SUBSALICYLATE 524 MG/30 ML PO PRN (11:17)
[2022-06-17] MEDS ORDERED: POLYETHYLENE GLYCOL (HEALTHYLAX) 3350 17 GM PACKET PO PRN (11:17)
[2022-06-17] MEDS ORDERED: MAG HYDROX/AL HYDROX/SIMETH 30 ML UNIT-DOSE CUP PO PRN (11:17)
[2022-06-17] MEDS ORDERED: LOPERAMIDE HCL 2 MG CAPSULE PO PRN (11:17)
[2022-06-17] MEDS ORDERED: NICOTINE 10 MG CARTRIDGE (INHALER) IH PRN (11:17)
[2022-06-17] MEDS ORDERED: IBUPROFEN 400 MG TABLET (FP) PO PRN (11:17)
[2022-06-17] MEDS ORDERED: IBUPROFEN 600 MG TABLET (FP) PO PRN (11:17)
[2022-06-17] MEDS ORDERED: DICYCLOMINE HCL 10 MG CAPSULE PO PRN (11:17)
[2022-06-17] MEDS ORDERED: LORazepam 1 MG TABLET PO PRN (11:17)
[2022-06-17] MEDS: METHOCARBAMOL 500 MG TABLET PO PRN (13:07)
[2022-06-17] MEDS: LORazepam 2 MG TABLET PO SCH ×2 (17:52→22:50)
[2022-06-17] MEDS: THIAMINE HCL 100 MG TABLET (FP) PO SCH (22:50)
[2022-06-17] MEDS: MELATONIN 5 MG TABLETS PO SCH (22:54)
[2022-06-18] MEDS: LORazepam 2 MG TABLET PO SCH ×4 (05:48→22:00)
[2022-06-18] MEDS: PRENATAL VITAMINS W/ FOLIC ACID TABLET (FP) PO SCH (10:56)
[2022-06-18] MEDS: NICOTINE 21 MG/24 HOURS TOPICAL PATCH TD SCH (10:57)
[2022-06-18] MEDS: HYDROCHLOROTHIAZIDE 25 MG TABLET (FP) PO SCH (10:57)
[2022-06-18 13:35] LABS: HEMATOCRIT 38.9 % (35.4-49); MCH 33.2 pg (25.7-33.7); MCHC 33.6 g/dl (32.0-35.9); MEAN PLT VOLUME 8.9 fl (7.5-11.1); PLATELET COUNT 226 10^3/uL (134-434); RBC 3.92 M/mm3 (4.00-5.60); RDW 15.1 % (11.9-15.9); WHITE BLOOD COUNT 3.6 K/mm3 (4.0-10.0)
[2022-06-18 13:56] LABS: BLOOD UREA NITROGEN 23.6 mg/dL (7-18); CALCIUM 8.5 mg/dL (8.5-10.1)
[2022-06-18 13:57] LABS: ALBUMIN 3.6 g/dl (3.4-5.0)
[2022-06-18 13:59] LABS: CREATININE 1.2 mg/dL (0.55-1.3)
[2022-06-18 14:00] LABS: BILIRUBIN,TOTAL 0.6 mg/dL (0.2-1)
[2022-06-18 14:01] LABS: TOT PROT 6.7 g/dl (6.4-8.2)
[2022-06-18] MEDS: THIAMINE HCL 100 MG TABLET (FP) PO SCH (21:39)
[2022-06-18] MEDS: MELATONIN 5 MG TABLETS PO SCH (21:40)
[2022-06-19] MEDS: LORazepam 1 MG TABLET PO SCH ×4 (05:53→22:38)
[2022-06-19] MEDS: METHOCARBAMOL 500 MG TABLET PO PRN ×2 (10:37→22:38)
[2022-06-19] MEDS: PRENATAL VITAMINS W/ FOLIC ACID TABLET (FP) PO SCH (10:37)
[2022-06-19] MEDS: NICOTINE 21 MG/24 HOURS TOPICAL PATCH TD SCH (10:37)
[2022-06-19] MEDS: HYDROCHLOROTHIAZIDE 25 MG TABLET (FP) PO SCH (10:37)
[2022-06-19] MEDS: THIAMINE HCL 100 MG TABLET (FP) PO SCH (22:38)
[2022-06-19] MEDS: MELATONIN 5 MG TABLETS PO SCH (22:41)
[2022-06-20] MEDS ORDERED: LORazepam 0.5 MG TABLET PO PRN
[2022-06-20] MEDS: LORazepam 0.5 MG TABLET PO SCH ×4 (05:17→23:23)
[2022-06-20] MEDS: NICOTINE 21 MG/24 HOURS TOPICAL PATCH TD SCH (10:27)
[2022-06-20] MEDS: HYDROCHLOROTHIAZIDE 25 MG TABLET (FP) PO SCH ×2 (10:27→10:33)
[2022-06-20] MEDS: PRENATAL VITAMINS W/ FOLIC ACID TABLET (FP) PO SCH (10:27)
[2022-06-20 22:13] VITALS: RESP 18
[2022-06-20] MEDS: THIAMINE HCL 100 MG TABLET (FP) PO SCH (22:56)
[2022-06-20] MEDS: MELATONIN 5 MG TABLETS PO SCH (22:56)
[2022-06-21] MEDS ORDERED: LORazepam 0.5 MG TABLET PO ONE (05:00)
[2022-06-21 10:02] VITALS: BP 132/80; PULSE 70; TEMP 97.9
[2022-06-21] MEDS: HYDROCHLOROTHIAZIDE 25 MG TABLET (FP) PO SCH (10:23)
[2022-06-21] MEDS: PRENATAL VITAMINS W/ FOLIC ACID TABLET (FP) PO SCH (10:23)
[2022-06-21] MEDS: NICOTINE 21 MG/24 HOURS TOPICAL PATCH TD SCH (10:23)
== END 2022-06-21 10:45 | disposition home or self-care (01) | DRG 774 ==
LOC: YASAS 09:36 → Y6N 12:45
PROVIDERS: ADMIT Allergy & Immunology; ATTEND Surgery
PROC: HZ2ZZZZ Detoxification Services for Substance Abuse Treatment (ICD-10-PCS; principal; 2022-06-17)
DX: F10.230 Alcohol dependence with withdrawal, uncomplicated (principal); F14.20 Cocaine dependence, uncomplicated; F12.20 Cannabis dependence, uncomplicated; F17.210 Nicotine dependence, cigarettes, uncomplicated; H54.61 Unqualified visual loss, right eye, normal vision left eye; I10 Essential (primary) hypertension; R76.8 Other specified abnormal immunological findings in serum; Z86.19 Personal history of other infectious and parasitic diseases
CPT/HCPCS: 36415; 80053; 85027; 86593; 86780; C9803-CS; U0003; U0005

== ENCOUNTER 2022-06-23 07:13 | Inpatient (IN) | payer OTHER ==
[2022-06-23 08:19] VITALS: BMI 17.7
[2022-06-23] MEDS ORDERED: P-EPHED 60MG/TRIPROLIDI 2.5MG TABLET PO PRN (08:33)
[2022-06-23] MEDS ORDERED: MAGNESIUM HYDROX 2400MG/30ML ORAL SUSPENSION 30 ML CUP PO PRN (08:33)
[2022-06-23] MEDS ORDERED: IBUPROFEN 400 MG TABLET (FP) PO PRN (08:33)
[2022-06-23] MEDS ORDERED: BENZOCAINE/MENTHOL (CHLORASEPTIC ) LOZENGE MM PRN (08:33)
[2022-06-23] MEDS ORDERED: MAG HYDROX/AL HYDROX/SIMETH 30 ML UNIT-DOSE CUP PO PRN (08:33)
[2022-06-23] MEDS ORDERED: hydrOXYzine PAMOATE 25 MG CAPSULE (FP) PO PRN (08:33)
[2022-06-23] MEDS ORDERED: guaiFENesin 200 MG/10 ML 10 ML UNIT-DOSE CUPS PO PRN (08:33)
[2022-06-23] MEDS ORDERED: LOPERAMIDE HCL 2 MG CAPSULE PO PRN (08:33)
[2022-06-23] MEDS ORDERED: POLYETHYLENE GLYCOL (HEALTHYLAX) 3350 17 GM PACKET PO PRN (08:33)
[2022-06-23] MEDS ORDERED: PRENATAL VITAMINS W/ FOLIC ACID TABLET (FP) PO ONE (09:40)
[2022-06-23] MEDS: PRENATAL VITAMINS W/ FOLIC ACID TABLET (FP) PO SCH (09:52)
[2022-06-23] MEDS: NICOTINE 7 MG/24 HOURS TOPICAL PATCH TD SCH (09:52)
[2022-06-23] MEDS: HYDROCHLOROTHIAZIDE 25 MG TABLET (FP) PO SCH (09:52)
[2022-06-23 17:33] LABS: HEMATOCRIT 38.9 % (35.4-49); HEMOGLOBIN 12.8 GM/dL (11.7-16.9); MCHC 32.8 g/dl (32.0-35.9); MEAN CELL VOLUME 97.4 fl (80-96); PLATELET COUNT 238 10^3/uL (134-434); RBC 3.99 M/mm3 (4.00-5.60); RDW 14.7 % (11.9-15.9); WHITE BLOOD COUNT 5.5 K/mm3 (4.0-10.0)
[2022-06-23 17:41] LABS: EPI CELLS 10 /uL (0-25.1); HYALINE CASTS 1 /uL (0-3.1); URINE APPEARANCE CLEAR; URINE BACTERIA 17 /uL (0-1359); URINE BILIRUBIN NEGATIVE (NEGATIVE); URINE COLOR YELLOW; URINE GLUCOSE (UA) NEGATIVE (NEGATIVE); URINE KETONE NEGATIVE (NEGATIVE); URINE LEUK ESTERASE 1+ (NEGATIVE); URINE NITRITE NEGATIVE (NEGATIVE); URINE PROTEIN NEGATIVE (NEGATIVE); URINE RBC 4 /uL (0-23.9); URINE UROBILINOGEN 0.2 mg/dL (0.2-1.0); URINE WBC 117 /uL (0-25.8)
[2022-06-23 17:57] LABS: ALBUMIN 3.8 g/dl (3.4-5.0); CALCIUM 9.2 mg/dL (8.5-10.1)
[2022-06-23 17:58] LABS: BLOOD UREA NITROGEN 26.8 mg/dL (7-18)
[2022-06-23 18:01] LABS: CREATININE 1.4 mg/dL (0.55-1.3)
[2022-06-23 18:02] LABS: BILIRUBIN,TOTAL 0.5 mg/dL (0.2-1)
[2022-06-23 18:41] LABS: SYPHILIS W/ RPR CONF REACTIVE (NONREACTIVE)
[2022-06-23] MEDS: THIAMINE HCL 100 MG TABLET (FP) PO SCH (21:29)
[2022-06-23] MEDS ORDERED: SUVOREXANT 10 MG TABLET PO PRN (22:00)
[2022-06-23] MEDS ORDERED: MELATONIN 5 MG TABLETS PO SCH (22:00)
[2022-06-24] MEDS: PRENATAL VITAMINS W/ FOLIC ACID TABLET (FP) PO SCH (10:06)
[2022-06-24] MEDS: amLODIPine BESYLATE 10 MG TABLET (FP) PO SCH (10:06)
[2022-06-24] MEDS: HYDROCHLOROTHIAZIDE 25 MG TABLET (FP) PO SCH (10:06)
[2022-06-24] MEDS: NICOTINE 7 MG/24 HOURS TOPICAL PATCH TD SCH (10:06)
[2022-06-24] MEDS: NICOTINE 10 MG CARTRIDGE (INHALER) IH PRN (10:07)
[2022-06-24] MEDS: THIAMINE HCL 100 MG TABLET (FP) PO SCH (21:35)
[2022-06-25] MEDS: NICOTINE 7 MG/24 HOURS TOPICAL PATCH TD SCH (09:49)
[2022-06-25] MEDS: amLODIPine BESYLATE 10 MG TABLET (FP) PO SCH (09:49)
[2022-06-25] MEDS: HYDROCHLOROTHIAZIDE 25 MG TABLET (FP) PO SCH (09:49)
[2022-06-25] MEDS: PRENATAL VITAMINS W/ FOLIC ACID TABLET (FP) PO SCH (09:50)
[2022-06-25] MEDS: THIAMINE HCL 100 MG TABLET (FP) PO SCH (21:40)
[2022-06-26] MEDS ORDERED: NICOTINE 7 MG/24 HOURS TOPICAL PATCH TD PRN (09:01)
[2022-06-26] MEDS: amLODIPine BESYLATE 10 MG TABLET (FP) PO SCH (09:53)
[2022-06-26] MEDS: HYDROCHLOROTHIAZIDE 25 MG TABLET (FP) PO SCH (09:53)
[2022-06-26] MEDS: PRENATAL VITAMINS W/ FOLIC ACID TABLET (FP) PO SCH (09:53)
[2022-06-26] MEDS: THIAMINE HCL 100 MG TABLET (FP) PO SCH (21:39)
[2022-06-26] MEDS ORDERED: SUVOREXANT 10 MG TABLET PO PRN (22:00)
[2022-06-27] MEDS: HYDROCHLOROTHIAZIDE 25 MG TABLET (FP) PO SCH (10:10)
[2022-06-27] MEDS: PRENATAL VITAMINS W/ FOLIC ACID TABLET (FP) PO SCH (10:10)
[2022-06-27] MEDS: amLODIPine BESYLATE 10 MG TABLET (FP) PO SCH (10:10)
[2022-06-27] MEDS ORDERED: COLLOIDAL OATMEAL 1 BAR EACH TP PRN (15:31)
[2022-06-27] MEDS: THIAMINE HCL 100 MG TABLET (FP) PO SCH (21:29)
[2022-06-28] MEDS: PRENATAL VITAMINS W/ FOLIC ACID TABLET (FP) PO SCH (09:53)
[2022-06-28] MEDS: HYDROCHLOROTHIAZIDE 25 MG TABLET (FP) PO SCH (09:53)
[2022-06-28] MEDS: amLODIPine BESYLATE 10 MG TABLET (FP) PO SCH (09:53)
[2022-06-28] MEDS: THIAMINE HCL 100 MG TABLET (FP) PO SCH (23:22)
[2022-06-29] MEDS: HYDROCHLOROTHIAZIDE 25 MG TABLET (FP) PO SCH (09:39)
[2022-06-29] MEDS: PRENATAL VITAMINS W/ FOLIC ACID TABLET (FP) PO SCH (09:40)
[2022-06-29] MEDS: amLODIPine BESYLATE 10 MG TABLET (FP) PO SCH (09:40)
[2022-06-29] MEDS: THIAMINE HCL 100 MG TABLET (FP) PO SCH (21:43)
[2022-06-29] MEDS ORDERED: SUVOREXANT 10 MG TABLET PO PRN (22:00)
[2022-06-30] MEDS ORDERED: PENICILLIN G BENZATHINE 1,200,000 UNIT/2 ML PFS IM ONE (10:00)
[2022-06-30] MEDS: amLODIPine BESYLATE 10 MG TABLET (FP) PO SCH (10:01)
[2022-06-30] MEDS: HYDROCHLOROTHIAZIDE 25 MG TABLET (FP) PO SCH (10:01)
[2022-06-30] MEDS: PRENATAL VITAMINS W/ FOLIC ACID TABLET (FP) PO SCH (10:01)
[2022-06-30] MEDS: ACETAMINOPHEN 325 MG TABLET (FP) PO PRN (11:56)
[2022-06-30] MEDS: THIAMINE HCL 100 MG TABLET (FP) PO SCH (22:03)
[2022-07-01 06:38] VITALS: RESP 16
[2022-07-01] MEDS: PRENATAL VITAMINS W/ FOLIC ACID TABLET (FP) PO SCH (09:53)
[2022-07-01] MEDS: amLODIPine BESYLATE 10 MG TABLET (FP) PO SCH (09:53)
[2022-07-01] MEDS: HYDROCHLOROTHIAZIDE 25 MG TABLET (FP) PO SCH (09:53)
[2022-07-01] MEDS: THIAMINE HCL 100 MG TABLET (FP) PO SCH (23:29)
[2022-07-02] MEDS: NICOTINE 10 MG CARTRIDGE (INHALER) IH PRN (07:02)
[2022-07-02] MEDS: amLODIPine BESYLATE 10 MG TABLET (FP) PO SCH (09:54)
[2022-07-02] MEDS: HYDROCHLOROTHIAZIDE 25 MG TABLET (FP) PO SCH (09:54)
[2022-07-02] MEDS: PRENATAL VITAMINS W/ FOLIC ACID TABLET (FP) PO SCH (09:54)
[2022-07-02] MEDS ORDERED: SUVOREXANT 10 MG TABLET PO PRN (22:00)
[2022-07-02] MEDS: THIAMINE HCL 100 MG TABLET (FP) PO SCH (22:14)
[2022-07-03] MEDS: NICOTINE 10 MG CARTRIDGE (INHALER) IH PRN (06:45)
[2022-07-03] MEDS: PRENATAL VITAMINS W/ FOLIC ACID TABLET (FP) PO SCH (09:54)
[2022-07-03] MEDS: amLODIPine BESYLATE 10 MG TABLET (FP) PO SCH (09:54)
[2022-07-03] MEDS: HYDROCHLOROTHIAZIDE 25 MG TABLET (FP) PO SCH (09:54)
[2022-07-03] MEDS: ACETAMINOPHEN 325 MG TABLET (FP) PO PRN (15:46)
[2022-07-03] MEDS: THIAMINE HCL 100 MG TABLET (FP) PO SCH (21:59)
[2022-07-04 06:44] VITALS: TEMP 97.8
[2022-07-04] MEDS: ACETAMINOPHEN 325 MG TABLET (FP) PO PRN (06:48)
[2022-07-04 09:58] VITALS: BP 138/80; PULSE 83
[2022-07-04] MEDS: amLODIPine BESYLATE 10 MG TABLET (FP) PO SCH (10:09)
[2022-07-04] MEDS: PRENATAL VITAMINS W/ FOLIC ACID TABLET (FP) PO SCH (10:09)
[2022-07-04] MEDS: HYDROCHLOROTHIAZIDE 25 MG TABLET (FP) PO SCH (10:09)
[2022-07-04] MEDS: NICOTINE 10 MG CARTRIDGE (INHALER) IH PRN (10:10)
== END 2022-07-04 18:37 | disposition home or self-care (01) | DRG 772 ==
LOC: YASAS 07:13 → Y3E 10:24
PROVIDERS: ADMIT Allergy & Immunology; ATTEND Allergy & Immunology
PROC: HZ42ZZZ Group Counseling for Substance Abuse Treatment, Cognitive-Behavioral (ICD-10-PCS; principal; 2022-06-23)
DX: F10.20 Alcohol dependence, uncomplicated (principal); F14.20 Cocaine dependence, uncomplicated; F12.20 Cannabis dependence, uncomplicated; F17.210 Nicotine dependence, cigarettes, uncomplicated; F19.282 Other psychoactive substance dependence with psychoactive substance-induced sleep disorder; A53.9 Syphilis, unspecified; I10 Essential (primary) hypertension; L85.3 Xerosis cutis; R63.4 Abnormal weight loss; Z68.1 Body mass index [BMI] 19.9 or less, adult
CPT/HCPCS: 36415; 80053; 81003; 85027; 86593; 86780; 86803; 87811; 93005; 93010; C9803-CS; U0003; U0005

== ENCOUNTER 2022-08-10 07:44 | Inpatient (IN) | payer OTHER ==
[2022-08-10 08:24] VITALS: BMI 18.4
[2022-08-10] MEDS ORDERED: ONDANSETRON *ODT* 4 MG TABLET SL PRN (08:48)
[2022-08-10] MEDS ORDERED: IBUPROFEN 600 MG TABLET (FP) PO PRN (08:48)
[2022-08-10] MEDS ORDERED: BENZOCAINE/MENTHOL (CHLORASEPTIC ) LOZENGE MM PRN (08:48)
[2022-08-10] MEDS ORDERED: guaiFENesin 600 MG TABLET.ER (FP) PO PRN (08:48)
[2022-08-10] MEDS ORDERED: LORazepam 1 MG TABLET PO PRN (08:48)
[2022-08-10] MEDS ORDERED: LOPERAMIDE HCL 2 MG CAPSULE PO PRN (08:48)
[2022-08-10] MEDS ORDERED: NICOTINE POLACRILEX 2 MG GUM BUC PRN (08:48)
[2022-08-10] MEDS ORDERED: NICOTINE 14 MG/24 HOURS TOPICAL PATCH TD PRN (08:48)
[2022-08-10] MEDS ORDERED: BENZONATATE 200 MG CAPSULE PO PRN (08:48)
[2022-08-10] MEDS ORDERED: POLYETHYLENE GLYCOL (HEALTHYLAX) 3350 17 GM PACKET PO PRN (08:48)
[2022-08-10] MEDS ORDERED: BISMUTH SUBSALICYLATE 262 MG/15 ML BTL PO PRN (08:48)
[2022-08-10] MEDS ORDERED: MAGNESIUM HYDROX 2400MG/30ML ORAL SUSPENSION 30 ML CUP PO PRN (08:48)
[2022-08-10] MEDS ORDERED: ACETAMINOPHEN 325 MG TABLET (FP) PO PRN (08:48)
[2022-08-10] MEDS ORDERED: IBUPROFEN 400 MG TABLET (FP) PO PRN (08:48)
[2022-08-10] MEDS ORDERED: MAG HYDROX/AL HYDROX/SIMETH 30 ML UNIT-DOSE CUP PO PRN (08:48)
[2022-08-10] MEDS ORDERED: PRENATAL VITAMINS W/ FOLIC ACID TABLET (FP) PO ONE (09:44)
[2022-08-10] MEDS: PRENATAL VITAMINS W/ FOLIC ACID TABLET (FP) PO SCH (09:46)
[2022-08-10] MEDS ORDERED: LORazepam 1 MG TABLET ONE (11:40)
[2022-08-10] MEDS: LORazepam 1 MG TABLET PO SCH ×3 (11:45→23:45)
[2022-08-10 12:01] LABS: HEMATOCRIT 37.4 % (35.4-49); HEMOGLOBIN 12.9 GM/dL (11.7-16.9); MCHC 34.6 g/dl (32.0-35.9); MEAN CELL VOLUME 98.3 fl (80-96); MEAN PLT VOLUME 9.5 fl (7.5-11.1); PLATELET COUNT 232 10^3/uL (134-434); RDW 14.8 % (11.9-15.9); WHITE BLOOD COUNT 5.9 K/mm3 (4.0-10.0)
[2022-08-10 12:08] LABS: CALCIUM 9.9 mg/dL (8.5-10.1)
[2022-08-10 12:09] LABS: ALBUMIN 4.2 g/dl (3.4-5.0); BLOOD UREA NITROGEN 15.6 mg/dL (7-18)
[2022-08-10 12:12] LABS: CREATININE 1.1 mg/dL (0.55-1.3)
[2022-08-10 12:14] LABS: BILIRUBIN,TOTAL 0.9 mg/dL (0.2-1); TOT PROT 7.7 g/dl (6.4-8.2)
[2022-08-10] MEDS: METHOCARBAMOL 500 MG TABLET PO PRN (13:00)
[2022-08-10] MEDS: hydrOXYzine PAMOATE 25 MG CAPSULE (FP) PO PRN (13:01)
[2022-08-10] MEDS: MELATONIN 5 MG TABLETS PO SCH (23:44)
[2022-08-10] MEDS: THIAMINE HCL 100 MG TABLET (FP) PO SCH (23:45)
[2022-08-11] MEDS: LORazepam 1 MG TABLET PO SCH ×4 (05:42→22:45)
[2022-08-11] MEDS ORDERED: amLODIPine BESYLATE 10 MG TABLET (FP) PO SCH (10:00)
[2022-08-11] MEDS: LOSARTAN POTASSIUM 25 MG TABLET PO SCH (10:30)
[2022-08-11] MEDS: PRENATAL VITAMINS W/ FOLIC ACID TABLET (FP) PO SCH (10:31)
[2022-08-11] MEDS ORDERED: PENICILLIN G BENZATHINE 2,400,000 UNIT/4 ML PFS IM ONE (14:46)
[2022-08-11] MEDS: MELATONIN 5 MG TABLETS PO SCH (22:45)
[2022-08-11] MEDS: THIAMINE HCL 100 MG TABLET (FP) PO SCH (22:48)
[2022-08-12] MEDS: LORazepam 1 MG TABLET PO SCH ×4 (05:55→22:32)
[2022-08-12] MEDS: PRENATAL VITAMINS W/ FOLIC ACID TABLET (FP) PO SCH (11:17)
[2022-08-12] MEDS: LOSARTAN POTASSIUM 25 MG TABLET PO SCH (11:17)
[2022-08-12] MEDS: METHOCARBAMOL 500 MG TABLET PO PRN (22:32)
[2022-08-12] MEDS: hydrOXYzine PAMOATE 25 MG CAPSULE (FP) PO PRN (22:32)
[2022-08-12] MEDS: THIAMINE HCL 100 MG TABLET (FP) PO SCH (22:32)
[2022-08-12] MEDS: MELATONIN 5 MG TABLETS PO SCH (22:32)
[2022-08-13] MEDS ORDERED: LORazepam 0.5 MG TABLET PO PRN
[2022-08-13] MEDS: LORazepam 0.5 MG TABLET PO SCH ×5 (06:13→22:33)
[2022-08-13] MEDS: PRENATAL VITAMINS W/ FOLIC ACID TABLET (FP) PO SCH (11:00)
[2022-08-13] MEDS: LOSARTAN POTASSIUM 25 MG TABLET PO SCH (11:01)
[2022-08-13] MEDS: THIAMINE HCL 100 MG TABLET (FP) PO SCH (22:32)
[2022-08-13] MEDS: MELATONIN 5 MG TABLETS PO SCH (22:32)
[2022-08-14] MEDS ORDERED: LORazepam 0.5 MG TABLET PO ONE (05:00)
[2022-08-14 08:02] VITALS: BP 138/81; PULSE 70; RESP 18; TEMP 98.6
== END 2022-08-14 08:14 | disposition home or self-care (01) | DRG 774 ==
LOC: YASAS 07:44 → Y3N 12:29
PROVIDERS: ADMIT Allergy & Immunology; ATTEND Surgery
PROC: HZ2ZZZZ Detoxification Services for Substance Abuse Treatment (ICD-10-PCS; principal; 2022-08-10)
DX: F10.230 Alcohol dependence with withdrawal, uncomplicated (principal); F14.20 Cocaine dependence, uncomplicated; F12.20 Cannabis dependence, uncomplicated; F17.210 Nicotine dependence, cigarettes, uncomplicated; H54.61 Unqualified visual loss, right eye, normal vision left eye; I10 Essential (primary) hypertension; R73.9 Hyperglycemia, unspecified; R76.8 Other specified abnormal immunological findings in serum; R63.4 Abnormal weight loss; Z68.1 Body mass index [BMI] 19.9 or less, adult; Z86.19 Personal history of other infectious and parasitic diseases
CPT/HCPCS: 36415; 80053; 85027; 86593; 86780; 87811; C9803-CS; U0003; U0005